=== PATIENT | female | born 1975 | race Caucasian/White ===

== ENCOUNTER → 2017-03-21 | Outpatient (CLI) | payer MEDICARE, OTHER ==
[~2017-03-21] MED LIST: ALPR.5; ALPR.5 PO; Amlodipine Bes2.5 MG PO; BIOTIN PO; CALACE667G; CALACE667G PO; CALCAVITD PO; CEPH500 PO; CODBUTACEC PO; CRANBERRY TAB PO; CREON DR 36,001 EACH PO; CREON DR 6,0001 EACH PO; Ceftriaxon2 GM/50 ML IV; DEXL60CA3; DEXL60CA3 PO; Dazidox10 MG PO; ECULIZUMAB; ENOX60I SC; ERGO50000 PO; ESCI20 PO; Esgic Tablet1 EACH PO; GABA300 PO; GLUC500 PO; HYDACE5 PO; HYDACE5325 PO; HYDCHL25 PO; HYDMOR2 PO; HYDMOR4 PO; Imitrex100 MG PO; KETO10 PO; Kristalose20 GM PO; LABE200 PO; LYSINE PO; Lisinopril2.5 MG PO; MEDR10 PO; METDOP250 PO; MULVITB&C PO; MULVITMIND PO; NAPR500 PO; Nephro-Vite RX1 EA PO; Norco 5-325 Ta1 EACH PO; OLME20 PO; OLME5TAB PO; ONDA4 PO; ONDA4ODT MM; ONDA8 PO; OXYACE5T PO; OXYC10TA19 PO; OXYC5; OXYC5 PO; PANT20 PO; PANT40 PO; PENVK500 PO; PREN-16 PO; PROC10 PO; PROC25S PR; PROC5 PR; PROM25 PO; PROM25S PO; Promethazine12.5 M1 PO; Protonix40 MG PO; RABE20 PO; RXHYDMOR2 PO; SODBIC650 PO; SUCR1 PO; SULTRIDS PO; SUMA25; SUMA25 PO; Soliris300 MG/30; Soliris300 MG/30 IV; TAMS.4ER PO; TRAM50 PO; Valium5 MG PO; WARF7.5 PO; Zofran Odt4 MG SL; Zofran Odt8 MG SL; [UNRECOGNIZED DRUG - OTHER] PO
[2017-03-21 19:10] LABS: Albumin, Blood 3.6 g/dL (3.4-5.0); Albumin/Globulin Ratio 1.1 (0.8-1.8); Bilirubin, Total 0.2 mg/dL (0.1-1.0); Bun/Creatinine Ratio 13.9 (12.0-20.0); Calcium, Blood 8.6 mg/dL (8.5-10.1); Creatinine, Blood 3.16 mg/dL (0.40-1.00); Globulin, Blood 3.3 g/dL (2.2-4.0); Potassium, Blood 5.9 mmol/L (3.5-5.5); Total Protein, Blood 6.9 g/dL (6.4-8.2)
== END ==
LOC: LAB SHORT 12:50
PROVIDERS: Internal Medicine Hematology & Oncology
DX: D59.3 Hemolytic-uremic syndrome (principal)
CPT/HCPCS: 80053; 86162

== ENCOUNTER → 2017-03-22 | Outpatient (CLI) | payer MEDICARE, OTHER ==
[2017-03-22 13:34] LABS: Alanine Aminotransfer (ALT/SGP 15 U/L (12-78); Albumin, Blood 3.6 g/dL (3.4-5.0); Albumin/Globulin Ratio 1.2 (0.8-1.8); Alk Phos 53 U/L (50-136); Anion Gap 8 mmol/L (6-16); Aspartate Aminotrans (AST/SGOT 13 U/L (12-37); Bilirubin, Direct <0.1 mg/dL (0.0-0.3); Bilirubin, Indirect Unable to Calculate mg/dL (0.1-0.7); Bilirubin, Total 0.2 mg/dL (0.1-1.0); Blood Urea Nitrogen 39 mg/dL (8-24); Bun/Creatinine Ratio 13.1 (12.0-20.0); CO2, Blood 22 mmol/L (21-32); Calcium, Blood 8.7 mg/dL (8.5-10.1); Chloride, Blood 112 mmol/L (98-108); Creatinine, Blood 2.97 mg/dL (0.40-1.00); Glomerular Filtration Rate 18 (60-); Glucose, Blood 122 mg/dL (70-99); Phosphorus, Blood 4.5 mg/dL (2.5-4.9); Potassium, Blood 5.2 mmol/L (3.5-5.5); Sodium, Blood 142 mmol/L (136-145); Total Protein, Blood 6.6 g/dL (6.4-8.2)
== END ==
LOC: LAB SHORT 12:25
PROVIDERS: Internal Medicine Hematology & Oncology
DX: D59.3 Hemolytic-uremic syndrome (principal)
CPT/HCPCS: 80053; 82248; 84100

== ENCOUNTER 2017-03-28 01:07 | Day surgery (SDC) | payer MEDICARE, OTHER ==
[~2017-03-28 01:07] MED LIST changes: -Amlodipine Bes2.5 MG PO; -CREON DR 36,001 EACH PO; -CREON DR 6,0001 EACH PO; -Kristalose20 GM PO; -RABE20 PO
[2017-03-28 12:15] LABS: BASOPHILS ABSOLUTE AUTO 0.07 K/mm3 (0.00-0.23); BASOPHILS PERCENT AUTO 1 % (0-2); EOSINOPHILS ABSOLUTE AUTO 0.29 K/mm3 (0.00-0.68); EOSINOPHILS PERCENT AUTO 3 % (0-6); Hematocrit 38.9 % (33.0-51.0); Hemoglobin 12.7 g/dL (11.5-16.0); IMMATURE GRAN ABSOLUTE AUTO 0.01 K/mm3 (0.00-0.10); IMMATURE GRAN PERCENT AUTO 0 % (0-1); LYMPHOCYTES ABSOLUTE AUTO 2.88 K/mm3 (0.84-5.20); LYMPHOCYTES PERCENT AUTO 31 % (21-46); MONOCYTES ABSOLUTE AUTO 0.41 K/mm3 (0.16-1.47); MONOCYTES PERCENT AUTO 5 % (4-13); Mean Corpuscular HGB 29.3 pg (26.0-34.0); Mean Corpuscular HGB Conc 32.6 g/dL (31.5-36.5); Mean Corpuscular Volume 90 fL (80-100); Mean Platelet Volume 10.5 fL (9.1-12.4); NEUTROPHILS ABSOLUTE AUTO 5.54 K/mm3 (1.96-9.15); NEUTROPHILS PERCENT AUTO 60 % (41-73); Platelet Count 318 K/mm3 (150-400); RDW Coefficient Variation 13.2 % (11.7-14.2); RDW Standard Deviation 43.8 fL (35.1-46.3); Red Blood Cell Count 4.33 M/mm3 (3.80-5.20)
[2017-03-28 12:36] LABS: Alanine Aminotransfer (ALT/SGP 18 U/L (12-78); Albumin, Blood 3.8 g/dL (3.4-5.0); Alk Phos 59 U/L (50-136); Anion Gap 7 mmol/L (6-16); Aspartate Aminotrans (AST/SGOT 17 U/L (12-37); Bilirubin, Direct <0.1 mg/dL (0.0-0.3); Bilirubin, Indirect Unable to Calculate mg/dL (0.1-0.7); Bilirubin, Total 0.2 mg/dL (0.1-1.0); Blood Urea Nitrogen 37 mg/dL (8-24); Bun/Creatinine Ratio 18.8 (12.0-20.0); CO2, Blood 23 mmol/L (21-32); Chloride, Blood 107 mmol/L (98-108); Creatinine, Blood 1.97 mg/dL (0.40-1.00); Globulin, Blood 3.9 g/dL (2.2-4.0); Glomerular Filtration Rate 30 (60-); Glucose, Blood 91 mg/dL (70-99); Phosphorus, Blood 3.7 mg/dL (2.5-4.9); Potassium, Blood 4.9 mmol/L (3.5-5.5); Sodium, Blood 137 mmol/L (136-145); Total Protein, Blood 7.7 g/dL (6.4-8.2)
[2017-03-28 14:08] LABS: Amylase, Blood 94 U/L (25-115)
[2018-01-06] MEDS ORDERED: RABE20 PO (19:10)
[2018-01-06] MEDS ORDERED: CREON DR 6,0001 EACH PO (19:10)
[2018-01-06] MEDS ORDERED: Amlodipine Bes2.5 MG PO (19:10)
[2018-01-06] MEDS ORDERED: CREON DR 36,001 EACH PO (19:10)
== END 2017-03-28 12:09 | disposition home or self-care (01) ==
LOC: ATC 01:07
PROVIDERS: Internal Medicine Hematology & Oncology; Internal Medicine Nephrology
DX: D59.3 Hemolytic-uremic syndrome (principal); R50.9 Fever, unspecified; N18.4 Chronic kidney disease, stage 4 (severe); D63.1 Anemia in chronic kidney disease; Z45.2 Encounter for adjustment and management of vascular access device; Z87.891 Personal history of nicotine dependence; Z99.2 Dependence on renal dialysis
CPT/HCPCS: 36415; 36593; 80053; 82150; 82248; 83690; 84100; 85025; 87040; J1642; J2997

== ENCOUNTER → 2017-04-01 | Outpatient (CLI) | payer MEDICARE, OTHER ==
[~2017-04-01] MED LIST changes: +Amlodipine Bes2.5 MG PO; +CREON DR 36,001 EACH PO; +CREON DR 6,0001 EACH PO; +Kristalose20 GM PO; +RABE20 PO
[2017-04-01 16:59] LABS: Albumin/Globulin Ratio 1.1 (0.8-1.8); Bilirubin, Total 0.3 mg/dL (0.1-1.0); Bun/Creatinine Ratio 15.9 (12.0-20.0); Calcium, Blood 9.1 mg/dL (8.5-10.1); Creatinine, Blood 1.89 mg/dL (0.40-1.00); Globulin, Blood 3.5 g/dL (2.2-4.0); Potassium, Blood 4.2 mmol/L (3.5-5.5); Total Protein, Blood 7.5 g/dL (6.4-8.2)
== END ==
LOC: LAB 15:55
PROVIDERS: Internal Medicine Nephrology
DX: N18.4 Chronic kidney disease, stage 4 (severe) (principal); D63.1 Anemia in chronic kidney disease
CPT/HCPCS: 80053; 82150; 83690; 84703

== ENCOUNTER → 2017-04-11 | Outpatient (CLI) | payer MEDICARE, OTHER ==
[2017-04-11 18:42] LABS: Albumin, Blood 3.5 g/dL (3.4-5.0); Albumin/Globulin Ratio 1.1 (0.8-1.8); Bilirubin, Total 0.3 mg/dL (0.1-1.0); Bun/Creatinine Ratio 16.8 (12.0-20.0); Calcium, Blood 8.9 mg/dL (8.5-10.1); Creatinine, Blood 1.85 mg/dL (0.40-1.00); Globulin, Blood 3.2 g/dL (2.2-4.0); Potassium, Blood 4.7 mmol/L (3.5-5.5); Total Protein, Blood 6.7 g/dL (6.4-8.2)
== END | disposition home or self-care (01) ==
LOC: LAB 12:40
PROVIDERS: Internal Medicine Hematology & Oncology
DX: D59.3 Hemolytic-uremic syndrome (principal)
CPT/HCPCS: 80053; 86162

== ENCOUNTER → 2017-04-22 | Outpatient (CLI) | payer MEDICARE ==
[2017-04-22 14:58] LABS: Albumin/Globulin Ratio 1.2 (0.8-1.8); Bilirubin, Total 0.4 mg/dL (0.1-1.0); Bun/Creatinine Ratio 17.5 (12.0-20.0); Calcium, Blood 9.7 mg/dL (8.5-10.1); Creatinine, Blood 1.66 mg/dL (0.40-1.00); Globulin, Blood 3.4 g/dL (2.2-4.0); Potassium, Blood 4.7 mmol/L (3.5-5.5); Total Protein, Blood 7.4 g/dL (6.4-8.2)
== END | disposition home or self-care (01) ==
LOC: LAB 10:00
PROVIDERS: Internal Medicine Hematology & Oncology
DX: D59.3 Hemolytic-uremic syndrome (principal)
CPT/HCPCS: 80053; 86162

== ENCOUNTER → 2017-05-02 | Outpatient (CLI) | payer MEDICARE, OTHER ==
[2017-05-02 17:18] LABS: Albumin, Blood 3.6 g/dL (3.4-5.0); Albumin/Globulin Ratio 1.2 (0.8-1.8); Bilirubin, Total 0.3 mg/dL (0.1-1.0); Bun/Creatinine Ratio 14.8 (12.0-20.0); Calcium, Blood 8.9 mg/dL (8.5-10.1); Creatinine, Blood 1.76 mg/dL (0.40-1.00); Globulin, Blood 3.1 g/dL (2.2-4.0); Potassium, Blood 4.3 mmol/L (3.5-5.5); Total Protein, Blood 6.7 g/dL (6.4-8.2)
== END | disposition home or self-care (01) ==
LOC: LAB 16:16
PROVIDERS: Internal Medicine Hematology & Oncology
DX: D59.3 Hemolytic-uremic syndrome (principal)
CPT/HCPCS: 80053; 86162

== ENCOUNTER → 2017-05-16 | Outpatient (CLI) | payer MEDICARE ==
[2017-05-16 17:06] LABS: Albumin, Blood 3.9 g/dL (3.4-5.0); Albumin/Globulin Ratio 1.1 (0.8-1.8); Bilirubin, Total 0.3 mg/dL (0.1-1.0); Bun/Creatinine Ratio 21.1 (12.0-20.0); Calcium, Blood 9.3 mg/dL (8.5-10.1); Creatinine, Blood 1.52 mg/dL (0.40-1.00); Globulin, Blood 3.5 g/dL (2.2-4.0); Potassium, Blood 5.1 mmol/L (3.5-5.5); Total Protein, Blood 7.4 g/dL (6.4-8.2)
== END ==
LOC: LAB SHORT 12:50
PROVIDERS: Internal Medicine Hematology & Oncology
DX: D59.3 Hemolytic-uremic syndrome (principal)
CPT/HCPCS: 80053

== ENCOUNTER → 2017-05-27 | Outpatient (CLI) | payer MEDICARE ==
[2017-05-27 17:30] LABS: Albumin, Blood 3.6 g/dL (3.4-5.0); Albumin/Globulin Ratio 1.1 (0.8-1.8); Bilirubin, Total 0.3 mg/dL (0.1-1.0); Bun/Creatinine Ratio 18.5 (12.0-20.0); Calcium, Blood 9.1 mg/dL (8.5-10.1); Creatinine, Blood 1.46 mg/dL (0.40-1.00); Globulin, Blood 3.4 g/dL (2.2-4.0); Potassium, Blood 4.6 mmol/L (3.5-5.5)
== END | disposition home or self-care (01) ==
LOC: LAB 12:25
PROVIDERS: Internal Medicine Hematology & Oncology
DX: D59.3 Hemolytic-uremic syndrome (principal); K86.1 Other chronic pancreatitis
CPT/HCPCS: 80053; 82150; 83690

== ENCOUNTER → 2017-06-07 | Outpatient (CLI) | payer MEDICARE ==
[2017-06-07 14:28] LABS: Albumin, Blood 3.5 g/dL (3.4-5.0); Bilirubin, Total 0.3 mg/dL (0.1-1.0); Bun/Creatinine Ratio 15.3 (12.0-20.0); Calcium, Blood 8.5 mg/dL (8.5-10.1); Creatinine, Blood 1.7 mg/dL (0.40-1.00); Globulin, Blood 3.5 g/dL (2.2-4.0); Potassium, Blood 4.8 mmol/L (3.5-5.5)
== END | disposition home or self-care (01) ==
LOC: LAB 11:00
PROVIDERS: Internal Medicine Hematology & Oncology
DX: D59.3 Hemolytic-uremic syndrome (principal)
CPT/HCPCS: 80053; 86162

== ENCOUNTER → 2017-06-18 | Outpatient (CLI) | payer MEDICARE, OTHER ==
[~2017-06-18] MED LIST changes: -Amlodipine Bes2.5 MG PO; -CREON DR 36,001 EACH PO; -CREON DR 6,0001 EACH PO; -Kristalose20 GM PO; -RABE20 PO
[2017-06-18 17:19] LABS: Albumin, Blood 3.8 g/dL (3.4-5.0); Albumin/Globulin Ratio 1.1 (0.8-1.8); Bilirubin, Total 0.5 mg/dL (0.1-1.0); Bun/Creatinine Ratio 20.1 (12.0-20.0); Calcium, Blood 9.4 mg/dL (8.5-10.1); Creatinine, Blood 1.59 mg/dL (0.40-1.00); Globulin, Blood 3.4 g/dL (2.2-4.0); Potassium, Blood 4.5 mmol/L (3.5-5.5); Total Protein, Blood 7.2 g/dL (6.4-8.2)
== END ==
LOC: LAB 12:40 → LAB SHORT 12:40
PROVIDERS: Internal Medicine Hematology & Oncology
DX: D59.3 Hemolytic-uremic syndrome (principal)
CPT/HCPCS: 80053; 86162

== ENCOUNTER → 2017-06-28 | Outpatient (CLI) | payer MEDICARE, OTHER ==
[2017-06-28 13:21] LABS: Albumin, Blood 3.2 g/dL (3.4-5.0); Albumin/Globulin Ratio 1.2 (0.8-1.8); Bilirubin, Total 0.2 mg/dL (0.1-1.0); Calcium, Blood 8.2 mg/dL (8.5-10.1); Creatinine, Blood 1.57 mg/dL (0.40-1.00); Globulin, Blood 2.7 g/dL (2.2-4.0); Potassium, Blood 4.2 mmol/L (3.5-5.5); Total Protein, Blood 5.9 g/dL (6.4-8.2)
== END ==
LOC: LAB 10:00 → LAB SHORT 10:00
PROVIDERS: Internal Medicine Hematology & Oncology
DX: D59.3 Hemolytic-uremic syndrome (principal)
CPT/HCPCS: 80053; 83615; 86162

== ENCOUNTER → 2017-07-09 | Outpatient (CLI) | payer MEDICARE, OTHER ==
[2017-07-09 17:26] LABS: Albumin, Blood 3.6 g/dL (3.4-5.0); Anion Gap 9 mmol/L (6-16); Blood Urea Nitrogen 26 mg/dL (8-24); CO2, Blood 23 mmol/L (21-32); Calcium, Blood 8.8 mg/dL (8.5-10.1); Chloride, Blood 108 mmol/L (98-108); Creatinine, Blood 1.53 mg/dL (0.40-1.00); Glomerular Filtration Rate 39 (60-); Glucose, Blood 123 mg/dL (70-99); Phosphorus, Blood 3.1 mg/dL (2.5-4.9); Potassium, Blood 4.6 mmol/L (3.5-5.5); Sodium, Blood 140 mmol/L (136-145)
[2017-07-09 17:29] LABS: Thyroid Stimulating Hormone 0.624 uIU/mL (0.360-4.800)
== END | disposition home or self-care (01) ==
LOC: LAB 13:00 → LAB SHORT 13:00
PROVIDERS: Internal Medicine Nephrology
DX: N18.3 Chronic kidney disease, stage 3 (moderate) (principal); D63.1 Anemia in chronic kidney disease; R80.9 Proteinuria, unspecified; R76.9 Abnormal immunological finding in serum, unspecified; R94.6 Abnormal results of thyroid function studies; R94.5 Abnormal results of liver function studies
CPT/HCPCS: 80069; 82530; 84443; 85018

== ENCOUNTER 2017-08-10 00:30 | Day surgery (SDC) | payer MEDICARE, OTHER | END 2017-08-10 13:29 | disposition home or self-care (01) | LOC: ATC 00:30 | DX: D59.3 Hemolytic-uremic syndrome (principal); Z87.891 Personal history of nicotine dependence; K21.9 Gastro-esophageal reflux disease without esophagitis; I10 Essential (primary) hypertension | CPT/HCPCS: 36593; 96523; J1642; J2997 ==

== ENCOUNTER → 2017-09-03 | Outpatient (CLI) | payer MEDICARE, OTHER ==
[2017-09-03 18:51] LABS: BASOPHILS ABSOLUTE AUTO 0.05 K/mm3 (0.00-0.23); BASOPHILS PERCENT AUTO 1 % (0-2); EOSINOPHILS ABSOLUTE AUTO 0.37 K/mm3 (0.00-0.68); EOSINOPHILS PERCENT AUTO 5 % (0-6); Hematocrit 37.1 % (33.0-51.0); Hemoglobin 11.9 g/dL (11.5-16.0); IMMATURE GRAN ABSOLUTE AUTO 0.01 K/mm3 (0.00-0.10); IMMATURE GRAN PERCENT AUTO 0 % (0-1); LYMPHOCYTES ABSOLUTE AUTO 1.94 K/mm3 (0.84-5.20); LYMPHOCYTES PERCENT AUTO 26 % (21-46); MONOCYTES ABSOLUTE AUTO 0.49 K/mm3 (0.16-1.47); MONOCYTES PERCENT AUTO 7 % (4-13); Mean Corpuscular HGB 27.8 pg (26.0-34.0); Mean Corpuscular HGB Conc 32.1 g/dL (31.5-36.5); Mean Corpuscular Volume 87 fL (80-100); Mean Platelet Volume 11.2 fL (9.1-12.4); NEUTROPHILS ABSOLUTE AUTO 4.64 K/mm3 (1.96-9.15); NEUTROPHILS PERCENT AUTO 62 % (41-73); Platelet Count 157 K/mm3 (150-400); RDW Coefficient Variation 13.5 % (11.7-14.2); RDW Standard Deviation 42.3 fL (35.1-46.3); Red Blood Cell Count 4.28 M/mm3 (3.80-5.20)
[2017-09-03 19:18] LABS: Alanine Aminotransfer (ALT/SGP 16 U/L (12-78); Alk Phos 48 U/L (50-136); Anion Gap 6 mmol/L (6-16); Aspartate Aminotrans (AST/SGOT 9 U/L (12-37); Bilirubin, Direct <0.1 mg/dL (0.0-0.3); Bilirubin, Indirect Unable to Calculate mg/dL (0.1-0.7); Bilirubin, Total 0.3 mg/dL (0.1-1.0); Blood Urea Nitrogen 34 mg/dL (8-24); Bun/Creatinine Ratio 13.8 (12.0-20.0); CO2, Blood 25 mmol/L (21-32); Calcium, Blood 7.9 mg/dL (8.5-10.1); Chloride, Blood 111 mmol/L (98-108); Creatinine, Blood 2.47 mg/dL (0.40-1.00); Glomerular Filtration Rate 23 (60-); Glucose, Blood 141 mg/dL (70-99); Phosphorus, Blood 3.9 mg/dL (2.5-4.9); Potassium, Blood 4.6 mmol/L (3.5-5.5); Sodium, Blood 142 mmol/L (136-145)
== END ==
LOC: LAB SHORT 18:15
PROVIDERS: Internal Medicine Nephrology
DX: N18.4 Chronic kidney disease, stage 4 (severe) (principal); D63.1 Anemia in chronic kidney disease; N25.81 Secondary hyperparathyroidism of renal origin; E55.9 Vitamin D deficiency, unspecified; E78.00 Pure hypercholesterolemia, unspecified; R76.9 Abnormal immunological finding in serum, unspecified; R94.5 Abnormal results of liver function studies; R94.6 Abnormal results of thyroid function studies; G60.9 Hereditary and idiopathic neuropathy, unspecified
CPT/HCPCS: 80053; 82248; 84100; 85025

== ENCOUNTER → 2017-09-04 | Outpatient (CLI) | payer MEDICARE, OTHER ==
[2017-09-04 10:04] LABS: Albumin, Blood 3.4 g/dL (3.4-5.0); Bilirubin, Total 0.4 mg/dL (0.1-1.0); Bun/Creatinine Ratio 13.5 (12.0-20.0); Calcium, Blood 8.6 mg/dL (8.5-10.1); Creatinine, Blood 2.29 mg/dL (0.40-1.00); Globulin, Blood 3.3 g/dL (2.2-4.0); Potassium, Blood 4.9 mmol/L (3.5-5.5); Total Protein, Blood 6.7 g/dL (6.4-8.2)
== END | disposition home or self-care (01) ==
LOC: LAB SHORT 09:28 → LAB 09:28
PROVIDERS: Internal Medicine Hematology & Oncology
DX: R11.2 Nausea with vomiting, unspecified (principal)
CPT/HCPCS: 80053

== ENCOUNTER → 2017-09-05 | Outpatient (CLI) | payer MEDICARE, OTHER ==
[2017-09-05 17:57] LABS: Albumin, Blood 3.7 g/dL (3.4-5.0); Anion Gap 8 mmol/L (6-16); Blood Urea Nitrogen 29 mg/dL (8-24); Bun/Creatinine Ratio 14.1 (12.0-20.0); CO2, Blood 23 mmol/L (21-32); Chloride, Blood 109 mmol/L (98-108); Creatinine, Blood 2.06 mg/dL (0.40-1.00); Glomerular Filtration Rate 28 (60-); Glucose, Blood 95 mg/dL (70-99); Phosphorus, Blood 4.6 mg/dL (2.5-4.9); Potassium, Blood 5.4 mmol/L (3.5-5.5); Sodium, Blood 140 mmol/L (136-145)
[2017-09-06 14:16] LABS: Albumin, Blood 3.9 g/dL (3.4-5.0); Albumin/Globulin Ratio 1.3 (0.8-1.8); Bilirubin, Total 0.6 mg/dL (0.1-1.0); Bun/Creatinine Ratio 14.9 (12.0-20.0); Calcium, Blood 8.9 mg/dL (8.5-10.1); Creatinine, Blood 2.15 mg/dL (0.40-1.00); Potassium, Blood 5.4 mmol/L (3.5-5.5); Total Protein, Blood 6.9 g/dL (6.4-8.2)
== END ==
LOC: LAB 16:39 → LAB SHORT 16:39
PROVIDERS: Internal Medicine Hematology & Oncology; Internal Medicine Nephrology
DX: N18.3 Chronic kidney disease, stage 3 (moderate) (principal); D63.1 Anemia in chronic kidney disease; D59.3 Hemolytic-uremic syndrome
CPT/HCPCS: 80053; 80069; 85018

== ENCOUNTER → 2017-09-06 | Outpatient (CLI) | payer MEDICARE, OTHER ==
[2017-09-06 14:05] LABS: Appearance, Urine Clear (Clear); Bilirubin, Urine Neg (Neg); Blood, Urine 1+ (Neg); Color, Urine Yellow (P-Yellow); Glucose Qualitative, Urine Neg (Neg); Ketones, Urine Neg (Neg); Leukocyte Esterase, Urine 1+ (Neg); Nitrite, Urine Neg (Neg); Protein, Urine 3+ (Neg); Urobilinogen, Urine NORM (Normal)
[2017-09-06 14:18] LABS: Bacteria Few /hpf; Squamous Epithelial Cells Mod /hpf (Few)
== END ==
LOC: LAB SHORT 13:42 → LAB 13:42
PROVIDERS: Internal Medicine Hematology & Oncology
DX: R50.9 Fever, unspecified (principal)
CPT/HCPCS: 81001; 87086

== ENCOUNTER → 2017-09-10 | Outpatient (CLI) | payer MEDICARE, OTHER ==
[2017-09-10 16:59] LABS: Albumin, Blood 3.8 g/dL (3.4-5.0); Albumin/Globulin Ratio 1.2 (0.8-1.8); Bilirubin, Total 0.6 mg/dL (0.1-1.0); Calcium, Blood 9.1 mg/dL (8.5-10.1); Creatinine, Blood 1.67 mg/dL (0.40-1.00); Globulin, Blood 3.1 g/dL (2.2-4.0); Potassium, Blood 4.7 mmol/L (3.5-5.5); Total Protein, Blood 6.9 g/dL (6.4-8.2)
== END ==
LOC: LAB SHORT 16:33 → LAB 16:33
PROVIDERS: Internal Medicine Hematology & Oncology
DX: D59.3 Hemolytic-uremic syndrome (principal)
CPT/HCPCS: 80053

== ENCOUNTER → 2017-09-23 | Outpatient (CLI) | payer MEDICARE, OTHER ==
[2017-09-23 12:09] LABS: Alanine Aminotransfer (ALT/SGP 14 U/L (12-78); Albumin, Blood 3.2 g/dL (3.4-5.0); Alk Phos 54 U/L (50-136); Anion Gap 5 mmol/L (6-16); Aspartate Aminotrans (AST/SGOT 13 U/L (12-37); Bilirubin, Direct <0.1 mg/dL (0.0-0.3); Bilirubin, Indirect Unable to Calculate mg/dL (0.1-0.7); Bilirubin, Total 0.3 mg/dL (0.1-1.0); Blood Urea Nitrogen 19 mg/dL (8-24); CO2, Blood 30 mmol/L (21-32); Calcium, Blood 8.6 mg/dL (8.5-10.1); Chloride, Blood 106 mmol/L (98-108); Creatinine, Blood 1.73 mg/dL (0.40-1.00); Globulin, Blood 3.1 g/dL (2.2-4.0); Glomerular Filtration Rate 34 (60-); Glucose, Blood 83 mg/dL (70-99); Phosphorus, Blood 3.2 mg/dL (2.5-4.9); Potassium, Blood 4.7 mmol/L (3.5-5.5); Sodium, Blood 141 mmol/L (136-145); Total Protein, Blood 6.3 g/dL (6.4-8.2)
== END | disposition home or self-care (01) ==
LOC: LAB 11:14 → LAB SHORT 11:14
PROVIDERS: Internal Medicine Nephrology
DX: N18.3 Chronic kidney disease, stage 3 (moderate) (principal); D63.1 Anemia in chronic kidney disease; N25.81 Secondary hyperparathyroidism of renal origin; E78.00 Pure hypercholesterolemia, unspecified; E55.9 Vitamin D deficiency, unspecified; R73.09 Other abnormal glucose
CPT/HCPCS: 80053; 82248; 83036; 84100; 85018

== ENCOUNTER → 2017-10-02 | Outpatient (CLI) | payer MEDICARE, OTHER ==
[2017-10-02 16:38] LABS: BASOPHILS ABSOLUTE AUTO 0.07 K/mm3 (0.00-0.23); BASOPHILS PERCENT AUTO 1 % (0-2); EOSINOPHILS ABSOLUTE AUTO 0.46 K/mm3 (0.00-0.68); EOSINOPHILS PERCENT AUTO 5 % (0-6); Hematocrit 40.9 % (33.0-51.0); Hemoglobin 13.2 g/dL (11.5-16.0); IMMATURE GRAN ABSOLUTE AUTO 0.02 K/mm3 (0.00-0.10); IMMATURE GRAN PERCENT AUTO 0 % (0-1); LYMPHOCYTES ABSOLUTE AUTO 2.35 K/mm3 (0.84-5.20); LYMPHOCYTES PERCENT AUTO 27 % (21-46); MONOCYTES ABSOLUTE AUTO 0.56 K/mm3 (0.16-1.47); MONOCYTES PERCENT AUTO 7 % (4-13); Mean Corpuscular HGB 28.1 pg (26.0-34.0); Mean Corpuscular HGB Conc 32.3 g/dL (31.5-36.5); Mean Corpuscular Volume 87 fL (80-100); Mean Platelet Volume 11.8 fL (9.1-12.4); NEUTROPHILS PERCENT AUTO 60 % (41-73); Platelet Count 246 K/mm3 (150-400); RDW Coefficient Variation 13.4 % (11.7-14.2); RDW Standard Deviation 42.7 fL (35.1-46.3); Red Blood Cell Count 4.69 M/mm3 (3.80-5.20); White Blood Cell Count 8.66 K/mm3 (4.00-11.30)
[2017-10-02 17:31] LABS: Albumin, Blood 3.7 g/dL (3.4-5.0); Anion Gap 8 mmol/L (6-16); Blood Urea Nitrogen 24 mg/dL (8-24); Bun/Creatinine Ratio 14.2 (12.0-20.0); CO2, Blood 26 mmol/L (21-32); Calcium, Blood 8.9 mg/dL (8.5-10.1); Chloride, Blood 105 mmol/L (98-108); Creatinine, Blood 1.69 mg/dL (0.40-1.00); Glomerular Filtration Rate 35 (60-); Glucose, Blood 89 mg/dL (70-99); Phosphorus, Blood 3.4 mg/dL (2.5-4.9); Potassium, Blood 4.7 mmol/L (3.5-5.5); Sodium, Blood 139 mmol/L (136-145)
== END | disposition home or self-care (01) ==
LOC: LAB SHORT 11:25 → LAB 11:25
PROVIDERS: Internal Medicine Nephrology
DX: N18.3 Chronic kidney disease, stage 3 (moderate) (principal); D63.1 Anemia in chronic kidney disease
CPT/HCPCS: 80069; 85025

== ENCOUNTER → 2017-10-03 | Outpatient (CLI) | payer MEDICARE, OTHER | END | disposition home or self-care (01) | LOC: LAB SHORT 16:39 → LAB 16:39 | DX: D59.3 Hemolytic-uremic syndrome (principal) | CPT/HCPCS: 86162 ==

== ENCOUNTER → 2017-10-11 | Outpatient (CLI) | payer MEDICARE, OTHER ==
[~2017-10-11] MED LIST changes: +Kristalose20 GM PO
[2017-10-11 17:18] LABS: Albumin, Blood 3.4 g/dL (3.4-5.0); Albumin/Globulin Ratio 1.1 (0.8-1.8); Bilirubin, Total 0.3 mg/dL (0.1-1.0); Bun/Creatinine Ratio 10.4 (12.0-20.0); Calcium, Blood 8.2 mg/dL (8.5-10.1); Creatinine, Blood 1.93 mg/dL (0.40-1.00); Globulin, Blood 3.1 g/dL (2.2-4.0); Potassium, Blood 4.5 mmol/L (3.5-5.5); Total Protein, Blood 6.5 g/dL (6.4-8.2)
== END ==
LOC: LAB SHORT 12:10 → LAB 12:10
PROVIDERS: Internal Medicine Hematology & Oncology
DX: D59.3 Hemolytic-uremic syndrome (principal)
CPT/HCPCS: 80053; 86162

== ENCOUNTER → 2017-10-22 | Outpatient (CLI) | payer MEDICARE, OTHER ==
[~2017-10-22] MED LIST changes: -Kristalose20 GM PO
[2017-10-22 17:30] LABS: Albumin, Blood 3.4 g/dL (3.4-5.0); Bilirubin, Total 0.2 mg/dL (0.1-1.0); Bun/Creatinine Ratio 11.4 (12.0-20.0); Calcium, Blood 8.5 mg/dL (8.5-10.1); Creatinine, Blood 2.01 mg/dL (0.40-1.00); Globulin, Blood 3.4 g/dL (2.2-4.0); Potassium, Blood 4.6 mmol/L (3.5-5.5); Total Protein, Blood 6.8 g/dL (6.4-8.2)
== END | disposition home or self-care (01) ==
LOC: LAB 16:32 → LAB SHORT 16:32
PROVIDERS: Internal Medicine Hematology & Oncology
DX: B38.9 Coccidioidomycosis, unspecified (principal)
CPT/HCPCS: 80053

== ENCOUNTER → 2017-10-25 | Outpatient (CLI) | payer MEDICARE, OTHER ==
[~2017-10-25] MED LIST changes: +Kristalose20 GM PO
[2017-10-25 16:13] LABS: BASOPHILS ABSOLUTE AUTO 0.07 K/mm3 (0.00-0.23); BASOPHILS PERCENT AUTO 1 % (0-2); EOSINOPHILS ABSOLUTE AUTO 0.53 K/mm3 (0.00-0.68); EOSINOPHILS PERCENT AUTO 7 % (0-6); Hematocrit 37.7 % (33.0-51.0); Hemoglobin 11.9 g/dL (11.5-16.0); IMMATURE GRAN ABSOLUTE AUTO 0.01 K/mm3 (0.00-0.10); IMMATURE GRAN PERCENT AUTO 0 % (0-1); LYMPHOCYTES PERCENT AUTO 26 % (21-46); MONOCYTES ABSOLUTE AUTO 0.46 K/mm3 (0.16-1.47); MONOCYTES PERCENT AUTO 6 % (4-13); Mean Corpuscular HGB 27.3 pg (26.0-34.0); Mean Corpuscular HGB Conc 31.6 g/dL (31.5-36.5); Mean Corpuscular Volume 87 fL (80-100); Mean Platelet Volume 11.2 fL (9.1-12.4); NEUTROPHILS ABSOLUTE AUTO 4.26 K/mm3 (1.96-9.15); NEUTROPHILS PERCENT AUTO 59 % (41-73); Platelet Count 201 K/mm3 (150-400); RDW Coefficient Variation 13.3 % (11.7-14.2); RDW Standard Deviation 41.5 fL (35.1-46.3); Red Blood Cell Count 4.36 M/mm3 (3.80-5.20); White Blood Cell Count 7.23 K/mm3 (4.00-11.30)
[2017-10-25 16:37] LABS: Albumin, Blood 3.4 g/dL (3.4-5.0); Anion Gap 7 mmol/L (6-16); Blood Urea Nitrogen 21 mg/dL (8-24); Bun/Creatinine Ratio 12.3 (12.0-20.0); CO2, Blood 28 mmol/L (21-32); Calcium, Blood 9.1 mg/dL (8.5-10.1); Chloride, Blood 104 mmol/L (98-108); Creatinine, Blood 1.71 mg/dL (0.40-1.00); Glomerular Filtration Rate 35 (60-); Glucose, Blood 90 mg/dL (70-99); Phosphorus, Blood 3.4 mg/dL (2.5-4.9); Potassium, Blood 4.5 mmol/L (3.5-5.5); Sodium, Blood 139 mmol/L (136-145)
[2017-10-25 16:47] LABS: Amylase, Blood 115 U/L (25-115)
== END | disposition home or self-care (01) ==
LOC: LAB SHORT 11:00 → LAB 11:00
PROVIDERS: Internal Medicine Hematology & Oncology; Internal Medicine Nephrology
DX: D59.3 Hemolytic-uremic syndrome (principal); N18.3 Chronic kidney disease, stage 3 (moderate); D63.1 Anemia in chronic kidney disease; R10.9 Unspecified abdominal pain
CPT/HCPCS: 80069; 82150; 83690; 85025

== ENCOUNTER 2017-10-28 12:07 | Emergency (ER) | payer MEDICARE, OTHER ==
[~2017-10-28] VITALS: Ht 182.9 cm; Wt 92.1 kg
[~2017-10-28 12:07] MED LIST changes: -Kristalose20 GM PO
[2017-10-28 13:35] LABS: Albumin, Blood 3.6 g/dL (3.4-5.0); Albumin/Globulin Ratio 0.9 (0.8-1.8); Bilirubin, Total 0.5 mg/dL (0.1-1.0); Bun/Creatinine Ratio 16.6 (12.0-20.0); Calcium, Blood 9.2 mg/dL (8.5-10.1); Creatinine, Blood 1.57 mg/dL (0.40-1.00); Globulin, Blood 4.2 g/dL (2.2-4.0); Potassium, Blood 4.3 mmol/L (3.5-5.5); Total Protein, Blood 7.8 g/dL (6.4-8.2)
[2017-10-28 13:36] LABS: BASOPHILS ABSOLUTE AUTO 0.05 K/mm3 (0.00-0.23); BASOPHILS PERCENT AUTO 1 % (0-2); EOSINOPHILS ABSOLUTE AUTO 0.21 K/mm3 (0.00-0.68); EOSINOPHILS PERCENT AUTO 3 % (0-6); Hematocrit 39.8 % (33.0-51.0); Hemoglobin 12.9 g/dL (11.5-16.0); IMMATURE GRAN ABSOLUTE AUTO 0.02 K/mm3 (0.00-0.10); IMMATURE GRAN PERCENT AUTO 0 % (0-1); LYMPHOCYTES ABSOLUTE AUTO 1.71 K/mm3 (0.84-5.20); LYMPHOCYTES PERCENT AUTO 23 % (21-46); MONOCYTES ABSOLUTE AUTO 0.43 K/mm3 (0.16-1.47); MONOCYTES PERCENT AUTO 6 % (4-13); Mean Corpuscular HGB 27.7 pg (26.0-34.0); Mean Corpuscular HGB Conc 32.4 g/dL (31.5-36.5); Mean Corpuscular Volume 85 fL (80-100); Mean Platelet Volume 10.9 fL (9.1-12.4); NEUTROPHILS ABSOLUTE AUTO 5.08 K/mm3 (1.96-9.15); NEUTROPHILS PERCENT AUTO 68 % (41-73); Platelet Count 220 K/mm3 (150-400); RDW Coefficient Variation 13.2 % (11.7-14.2); RDW Standard Deviation 40.8 fL (35.1-46.3); Red Blood Cell Count 4.66 M/mm3 (3.80-5.20)
[2017-10-28 14:18] LABS: Source, Urine Clean Catch
[2017-10-28 14:31] LABS: Appearance, Urine Clear (Clear); Bilirubin, Urine Neg (Neg); Blood, Urine Neg (Neg); Color, Urine Yellow (P-Yellow); Glucose Qualitative, Urine Neg (Neg); Ketones, Urine Neg (Neg); Leukocyte Esterase, Urine 1+ (Neg); Nitrite, Urine Neg (Neg); Protein, Urine 3+ (Neg); Urobilinogen, Urine NORM (Normal); pH, Urine 6.5 (5.0-8.0)
[2017-10-28 15:03] LABS: Red Blood Cells, Urine Not Seen /hpf (0-2); Squamous Epithelial Cells Few /hpf (Few)
[2017-10-28 15:04] LABS: Bacteria Few /hpf
[2017-10-28] MEDS ORDERED: Kristalose20 GM PO (16:29)
== END 2017-10-28 16:40 | disposition home or self-care (01) ==
LOC: ER 12:07
PROVIDERS: Emergency Medicine
DX: R10.12 Left upper quadrant pain (principal); R10.13 Epigastric pain; R11.2 Nausea with vomiting, unspecified; Z87.442 Personal history of urinary calculi; Z88.6 Allergy status to analgesic agent; Z88.8 Allergy status to other drugs, medicaments and biological substances; Z88.5 Allergy status to narcotic agent; Z79.899 Other long term (current) drug therapy
CPT/HCPCS: 74019; 80053; 81001; 81025; 83690; 85025; 87086; 96361; 96374; 96375; 99284-25; J0780; J1642; J7120

== ENCOUNTER → 2017-11-05 | Outpatient (CLI) | payer MEDICARE, OTHER ==
[~2017-11-05] MED LIST changes: +Kristalose20 GM PO
[2017-11-05 17:45] LABS: Albumin, Blood 3.4 g/dL (3.4-5.0); Albumin/Globulin Ratio 0.9 (0.8-1.8); Bilirubin, Total 0.2 mg/dL (0.1-1.0); Bun/Creatinine Ratio 11.2 (12.0-20.0); Calcium, Blood 8.7 mg/dL (8.5-10.1); Creatinine, Blood 1.52 mg/dL (0.40-1.00); Globulin, Blood 3.7 g/dL (2.2-4.0); Potassium, Blood 4.2 mmol/L (3.5-5.5); Total Protein, Blood 7.1 g/dL (6.4-8.2)
== END ==
LOC: LAB SHORT 17:07 → LAB 17:07
PROVIDERS: Internal Medicine Hematology & Oncology
DX: D59.3 Hemolytic-uremic syndrome (principal)
CPT/HCPCS: 80053; 86162

== ENCOUNTER → 2017-11-15 | Outpatient (CLI) | payer MEDICARE, OTHER ==
[2017-11-15 12:13] LABS: BASOPHILS ABSOLUTE AUTO 0.08 K/mm3 (0.00-0.23); BASOPHILS PERCENT AUTO 1 % (0-2); EOSINOPHILS ABSOLUTE AUTO 0.45 K/mm3 (0.00-0.68); EOSINOPHILS PERCENT AUTO 6 % (0-6); Hematocrit 34.5 % (33.0-51.0); Hemoglobin 10.8 g/dL (11.5-16.0); IMMATURE GRAN ABSOLUTE AUTO 0.01 K/mm3 (0.00-0.10); IMMATURE GRAN PERCENT AUTO 0 % (0-1); LYMPHOCYTES ABSOLUTE AUTO 2.34 K/mm3 (0.84-5.20); LYMPHOCYTES PERCENT AUTO 32 % (21-46); MONOCYTES ABSOLUTE AUTO 0.63 K/mm3 (0.16-1.47); MONOCYTES PERCENT AUTO 9 % (4-13); Mean Corpuscular HGB 27.2 pg (26.0-34.0); Mean Corpuscular HGB Conc 31.3 g/dL (31.5-36.5); Mean Corpuscular Volume 87 fL (80-100); Mean Platelet Volume 10.8 fL (9.1-12.4); NEUTROPHILS ABSOLUTE AUTO 3.92 K/mm3 (1.96-9.15); NEUTROPHILS PERCENT AUTO 53 % (41-73); Platelet Count 197 K/mm3 (150-400); RDW Coefficient Variation 13.2 % (11.7-14.2); RDW Standard Deviation 41.4 fL (35.1-46.3); Red Blood Cell Count 3.97 M/mm3 (3.80-5.20); White Blood Cell Count 7.43 K/mm3 (4.00-11.30)
[2017-11-15 12:30] LABS: Alanine Aminotransfer (ALT/SGP 14 U/L (12-78); Albumin, Blood 3.2 g/dL (3.4-5.0); Alk Phos 48 U/L (50-136); Amylase, Blood 50 U/L (25-115); Anion Gap 6 mmol/L (6-16); Aspartate Aminotrans (AST/SGOT 11 U/L (12-37); Bilirubin, Direct <0.1 mg/dL (0.0-0.3); Bilirubin, Indirect Unable to Calculate mg/dL (0.1-0.7); Bilirubin, Total 0.3 mg/dL (0.1-1.0); Blood Urea Nitrogen 19 mg/dL (8-24); Bun/Creatinine Ratio 9.5 (12.0-20.0); CO2, Blood 27 mmol/L (21-32); Calcium, Blood 8.3 mg/dL (8.5-10.1); Chloride, Blood 109 mmol/L (98-108); Creatinine, Blood 1.99 mg/dL (0.40-1.00); Globulin, Blood 3.1 g/dL (2.2-4.0); Glomerular Filtration Rate 29 (60-); Glucose, Blood 80 mg/dL (70-99); Phosphorus, Blood 3.6 mg/dL (2.5-4.9); Potassium, Blood 4.4 mmol/L (3.5-5.5); Sodium, Blood 142 mmol/L (136-145); Total Protein, Blood 6.3 g/dL (6.4-8.2)
== END | disposition home or self-care (01) ==
LOC: LAB SHORT 10:30 → LAB 10:30
PROVIDERS: Internal Medicine Nephrology
DX: N18.3 Chronic kidney disease, stage 3 (moderate) (principal); D63.1 Anemia in chronic kidney disease; N25.81 Secondary hyperparathyroidism of renal origin; E55.9 Vitamin D deficiency, unspecified; E78.00 Pure hypercholesterolemia, unspecified; R94.6 Abnormal results of thyroid function studies; R94.5 Abnormal results of liver function studies; R76.9 Abnormal immunological finding in serum, unspecified
CPT/HCPCS: 80053; 82150; 82248; 83690; 84100; 85025; 85651

== ENCOUNTER → 2017-11-25 | Outpatient (CLI) | payer MEDICARE, OTHER ==
[2017-11-25 13:25] LABS: Albumin, Blood 3.6 g/dL (3.4-5.0); Bilirubin, Total 0.4 mg/dL (0.1-1.0); Bun/Creatinine Ratio 18.4 (12.0-20.0); Calcium, Blood 8.9 mg/dL (8.5-10.1); Creatinine, Blood 1.74 mg/dL (0.40-1.00); Globulin, Blood 3.7 g/dL (2.2-4.0); Potassium, Blood 4.7 mmol/L (3.5-5.5); Total Protein, Blood 7.3 g/dL (6.4-8.2)
== END | disposition home or self-care (01) ==
LOC: LAB SHORT 11:40 → LAB 11:40
PROVIDERS: Internal Medicine Hematology & Oncology
DX: D59.3 Hemolytic-uremic syndrome (principal)
CPT/HCPCS: 80053; 86162

== ENCOUNTER → 2017-12-04 | Outpatient (CLI) | payer MEDICARE, OTHER ==
[2017-12-04 17:30] LABS: Albumin, Blood 3.6 g/dL (3.4-5.0); Bilirubin, Total 0.4 mg/dL (0.1-1.0); Bun/Creatinine Ratio 19.1 (12.0-20.0); Calcium, Blood 8.4 mg/dL (8.5-10.1); Creatinine, Blood 1.41 mg/dL (0.40-1.00); Globulin, Blood 3.6 g/dL (2.2-4.0); Potassium, Blood 4.4 mmol/L (3.5-5.5); Total Protein, Blood 7.2 g/dL (6.4-8.2)
== END | disposition home or self-care (01) ==
LOC: LAB SHORT 13:15 → LAB 13:15
PROVIDERS: Internal Medicine Hematology & Oncology
DX: D59.3 Hemolytic-uremic syndrome (principal)
CPT/HCPCS: 80053; 86162

== ENCOUNTER → 2017-12-16 | Outpatient (CLI) | payer MEDICARE, OTHER ==
[2017-12-16 17:13] LABS: Albumin, Blood 3.6 g/dL (3.4-5.0); Albumin/Globulin Ratio 1.1 (0.8-1.8); Bilirubin, Total 0.4 mg/dL (0.1-1.0); Bun/Creatinine Ratio 14.5 (12.0-20.0); Calcium, Blood 8.6 mg/dL (8.5-10.1); Creatinine, Blood 1.66 mg/dL (0.40-1.00); Globulin, Blood 3.2 g/dL (2.2-4.0); Potassium, Blood 4.4 mmol/L (3.5-5.5); Total Protein, Blood 6.8 g/dL (6.4-8.2)
== END | disposition home or self-care (01) ==
LOC: LAB SHORT 14:00 → LAB 14:00
PROVIDERS: Internal Medicine Hematology & Oncology
DX: D59.3 Hemolytic-uremic syndrome (principal)
CPT/HCPCS: 80053; 86162

== ENCOUNTER → 2018-03-03 | Outpatient (CLI) | payer MEDICARE, OTHER ==
[~2018-03-03] MED LIST changes: +Amlodipine Bes2.5 MG PO; +CREON DR 36,001 EACH PO; +CREON DR 6,0001 EACH PO; +RABE20 PO
[2018-03-03 16:56] LABS: Albumin, Blood 3.5 g/dL (3.4-5.0); Bilirubin, Total 0.2 mg/dL (0.1-1.0); Calcium, Blood 9.1 mg/dL (8.5-10.1); Creatinine, Blood 1.8 mg/dL (0.40-1.00); Globulin, Blood 3.4 g/dL (2.2-4.0); Potassium, Blood 4.7 mmol/L (3.5-5.5); Total Protein, Blood 6.9 g/dL (6.4-8.2)
== END | disposition home or self-care (01) ==
LOC: LAB 13:50 → LAB SHORT 13:50
PROVIDERS: Internal Medicine Hematology & Oncology
DX: D59.3 Hemolytic-uremic syndrome (principal)
CPT/HCPCS: 80053; 86162

== ENCOUNTER → 2018-03-13 | Outpatient (CLI) | payer MEDICARE, OTHER ==
[2018-03-13 17:09] LABS: Albumin, Blood 3.4 g/dL (3.4-5.0); Bilirubin, Total 0.2 mg/dL (0.1-1.0); Bun/Creatinine Ratio 11.6 (12.0-20.0); Calcium, Blood 8.3 mg/dL (8.5-10.1); Creatinine, Blood 1.73 mg/dL (0.40-1.00); Globulin, Blood 3.3 g/dL (2.2-4.0); Potassium, Blood 4.3 mmol/L (3.5-5.5); Total Protein, Blood 6.7 g/dL (6.4-8.2)
== END | disposition home or self-care (01) ==
LOC: LAB 13:30 → LAB SHORT 13:30
PROVIDERS: Internal Medicine Hematology & Oncology
DX: D59.3 Hemolytic-uremic syndrome (principal)
CPT/HCPCS: 80053; 83615

== ENCOUNTER → 2018-03-20 | Outpatient (CLI) | payer MEDICARE, OTHER ==
[2018-03-20 16:59] LABS: BASOPHILS ABSOLUTE AUTO 0.08 K/mm3 (0.00-0.23); BASOPHILS PERCENT AUTO 1 % (0-2); EOSINOPHILS ABSOLUTE AUTO 0.37 K/mm3 (0.00-0.68); EOSINOPHILS PERCENT AUTO 4 % (0-6); Hematocrit 42.4 % (33.0-51.0); Hemoglobin 13.1 g/dL (11.5-16.0); IMMATURE GRAN ABSOLUTE AUTO 0.03 K/mm3 (0.00-0.10); IMMATURE GRAN PERCENT AUTO 0 % (0-1); LYMPHOCYTES ABSOLUTE AUTO 2.52 K/mm3 (0.84-5.20); LYMPHOCYTES PERCENT AUTO 26 % (21-46); MONOCYTES ABSOLUTE AUTO 0.56 K/mm3 (0.16-1.47); MONOCYTES PERCENT AUTO 6 % (4-13); Mean Corpuscular HGB 27.9 pg (26.0-34.0); Mean Corpuscular HGB Conc 30.9 g/dL (31.5-36.5); Mean Corpuscular Volume 90 fL (80-100); Mean Platelet Volume 10.6 fL (9.1-12.4); NEUTROPHILS PERCENT AUTO 64 % (41-73); Platelet Count 343 K/mm3 (150-400); RDW Coefficient Variation 13.9 % (11.7-14.2); RDW Standard Deviation 46.6 fL (35.1-46.3); White Blood Cell Count 9.76 K/mm3 (4.00-11.30)
[2018-03-20 17:14] LABS: Alanine Aminotransfer (ALT/SGP 15 U/L (12-78); Albumin/Globulin Ratio 1.1 (0.8-1.8); Alk Phos 59 U/L (50-136); Anion Gap 9 mmol/L (6-16); Aspartate Aminotrans (AST/SGOT 11 U/L (12-37); Bilirubin, Direct <0.1 mg/dL (0.0-0.3); Bilirubin, Indirect Unable to Calculate mg/dL (0.1-0.7); Bilirubin, Total 0.2 mg/dL (0.1-1.0); Blood Urea Nitrogen 31 mg/dL (8-24); Bun/Creatinine Ratio 18.9 (12.0-20.0); CO2, Blood 22 mmol/L (21-32); Calcium, Blood 9.2 mg/dL (8.5-10.1); Chloride, Blood 109 mmol/L (98-108); Creatinine, Blood 1.64 mg/dL (0.40-1.00); Globulin, Blood 3.7 g/dL (2.2-4.0); Glomerular Filtration Rate 36 (60-); Glucose, Blood 110 mg/dL (70-99); Phosphorus, Blood 3.1 mg/dL (2.5-4.9); Potassium, Blood 4.7 mmol/L (3.5-5.5); Sodium, Blood 140 mmol/L (136-145); Total Protein, Blood 7.7 g/dL (6.4-8.2)
== END | disposition home or self-care (01) ==
LOC: LAB 16:41 → LAB SHORT 16:41
PROVIDERS: Internal Medicine Nephrology
DX: N18.3 Chronic kidney disease, stage 3 (moderate) (principal); D63.1 Anemia in chronic kidney disease; N25.81 Secondary hyperparathyroidism of renal origin; E55.9 Vitamin D deficiency, unspecified; E78.00 Pure hypercholesterolemia, unspecified; R76.9 Abnormal immunological finding in serum, unspecified; R94.5 Abnormal results of liver function studies; R94.6 Abnormal results of thyroid function studies
CPT/HCPCS: 80053; 82248; 84100; 85025

== ENCOUNTER → 2018-03-24 | Outpatient (CLI) | payer MEDICARE, OTHER ==
[2018-03-24 17:39] LABS: Albumin, Blood 3.4 g/dL (3.4-5.0); Bilirubin, Total 0.2 mg/dL (0.1-1.0); Bun/Creatinine Ratio 14.8 (12.0-20.0); Calcium, Blood 8.8 mg/dL (8.5-10.1); Creatinine, Blood 1.62 mg/dL (0.40-1.00); Globulin, Blood 3.4 g/dL (2.2-4.0); Potassium, Blood 4.6 mmol/L (3.5-5.5); Total Protein, Blood 6.8 g/dL (6.4-8.2)
== END | disposition home or self-care (01) ==
LOC: LAB 16:35 → LAB SHORT 16:35
PROVIDERS: Internal Medicine Hematology & Oncology
DX: D59.3 Hemolytic-uremic syndrome (principal)
CPT/HCPCS: 80053; 83615; 86162

== ENCOUNTER → 2018-04-03 | Outpatient (CLI) | payer MEDICARE, OTHER ==
[2018-04-03 20:25] LABS: Albumin, Blood 3.4 g/dL (3.4-5.0); Albumin/Globulin Ratio 1.1 (0.8-1.8); Bilirubin, Total 0.1 mg/dL (0.1-1.0); Bun/Creatinine Ratio 10.5 (12.0-20.0); Calcium, Blood 8.6 mg/dL (8.5-10.1); Creatinine, Blood 2.09 mg/dL (0.40-1.00); Globulin, Blood 3.2 g/dL (2.2-4.0); Potassium, Blood 4.9 mmol/L (3.5-5.5); Total Protein, Blood 6.6 g/dL (6.4-8.2)
== END ==
LOC: LAB SHORT 18:55 → LAB 18:55
PROVIDERS: Internal Medicine Hematology & Oncology
DX: D59.3 Hemolytic-uremic syndrome (principal)
CPT/HCPCS: 80053; 86162

== ENCOUNTER → 2018-04-15 | Outpatient (CLI) | payer MEDICARE, OTHER ==
[2018-04-15 17:48] LABS: Albumin, Blood 3.7 g/dL (3.4-5.0); Albumin/Globulin Ratio 1.1 (0.8-1.8); Bilirubin, Total 0.3 mg/dL (0.1-1.0); Bun/Creatinine Ratio 16.1 (12.0-20.0); Calcium, Blood 8.9 mg/dL (8.5-10.1); Creatinine, Blood 1.61 mg/dL (0.40-1.00); Globulin, Blood 3.5 g/dL (2.2-4.0); Potassium, Blood 4.6 mmol/L (3.5-5.5); Total Protein, Blood 7.2 g/dL (6.4-8.2)
== END | disposition home or self-care (01) ==
LOC: LAB SHORT 16:36 → LAB 16:36
PROVIDERS: Internal Medicine Hematology & Oncology
DX: D59.3 Hemolytic-uremic syndrome (principal)
CPT/HCPCS: 80053; 86162

== ENCOUNTER → 2018-04-25 | Outpatient (CLI) | payer MEDICARE, OTHER ==
[2018-04-25 18:43] LABS: Albumin, Blood 3.5 g/dL (3.4-5.0); Albumin/Globulin Ratio 1.1 (0.8-1.8); Bilirubin, Total 0.4 mg/dL (0.1-1.0); Bun/Creatinine Ratio 14.1 (12.0-20.0); Calcium, Blood 8.8 mg/dL (8.5-10.1); Creatinine, Blood 1.56 mg/dL (0.40-1.00); Globulin, Blood 3.3 g/dL (2.2-4.0); Potassium, Blood 4.6 mmol/L (3.5-5.5); Total Protein, Blood 6.8 g/dL (6.4-8.2)
== END | disposition home or self-care (01) ==
LOC: LAB SHORT 16:53 → LAB 16:53
PROVIDERS: Internal Medicine Hematology & Oncology
DX: D59.3 Hemolytic-uremic syndrome (principal)
CPT/HCPCS: 80053; 86162

== ENCOUNTER → 2018-05-06 | Outpatient (CLI) | payer MEDICARE, OTHER ==
[2018-05-06 19:51] LABS: Albumin, Blood 3.4 g/dL (3.4-5.0); Albumin/Globulin Ratio 1.1 (0.8-1.8); Bilirubin, Total 0.2 mg/dL (0.1-1.0); Bun/Creatinine Ratio 11.2 (12.0-20.0); Calcium, Blood 8.3 mg/dL (8.5-10.1); Creatinine, Blood 1.79 mg/dL (0.40-1.00); Globulin, Blood 3.1 g/dL (2.2-4.0); Potassium, Blood 4.6 mmol/L (3.5-5.5); Total Protein, Blood 6.5 g/dL (6.4-8.2)
== END | disposition home or self-care (01) ==
LOC: LAB 19:01 → LAB SHORT 19:01
PROVIDERS: Internal Medicine Hematology & Oncology
DX: D59.3 Hemolytic-uremic syndrome (principal)
CPT/HCPCS: 80053; 83615; 86162

== ENCOUNTER → 2018-05-20 | Outpatient (CLI) | payer MEDICARE, OTHER ==
[2018-05-20 17:25] LABS: Albumin, Blood 3.3 g/dL (3.4-5.0); Bilirubin, Total 0.2 mg/dL (0.1-1.0); Bun/Creatinine Ratio 14.4 (12.0-20.0); Calcium, Blood 8.7 mg/dL (8.5-10.1); Creatinine, Blood 1.39 mg/dL (0.40-1.00); Globulin, Blood 3.2 g/dL (2.2-4.0); Potassium, Blood 4.7 mmol/L (3.5-5.5); Total Protein, Blood 6.5 g/dL (6.4-8.2)
== END | disposition home or self-care (01) ==
LOC: LAB 16:37 → LAB SHORT 16:37
PROVIDERS: Internal Medicine Hematology & Oncology
DX: D59.3 Hemolytic-uremic syndrome (principal)
CPT/HCPCS: 80053; 86162

== ENCOUNTER → 2018-06-04 | Outpatient (CLI) | payer MEDICARE, OTHER ==
[2018-06-04 18:24] LABS: Albumin, Blood 3.4 g/dL (3.4-5.0); Bilirubin, Total 0.3 mg/dL (0.1-1.0); Calcium, Blood 9.3 mg/dL (8.5-10.1); Creatinine, Blood 1.6 mg/dL (0.40-1.00); Globulin, Blood 3.3 g/dL (2.2-4.0); Potassium, Blood 4.7 mmol/L (3.5-5.5); Total Protein, Blood 6.7 g/dL (6.4-8.2)
== END | disposition home or self-care (01) ==
LOC: LAB SHORT 15:41 → LAB 15:41
PROVIDERS: Internal Medicine Hematology & Oncology
DX: D59.3 Hemolytic-uremic syndrome (principal)
CPT/HCPCS: 80053

== ENCOUNTER → 2018-06-16 | Outpatient (CLI) | payer MEDICARE, OTHER ==
[2018-06-16 20:20] LABS: Albumin, Blood 3.5 g/dL (3.4-5.0); Bilirubin, Total 0.6 mg/dL (0.1-1.0); Bun/Creatinine Ratio 15.6 (12.0-20.0); Calcium, Blood 9.2 mg/dL (8.5-10.1); Creatinine, Blood 1.41 mg/dL (0.40-1.00); Globulin, Blood 3.6 g/dL (2.2-4.0); Potassium, Blood 5.2 mmol/L (3.5-5.5); Total Protein, Blood 7.1 g/dL (6.4-8.2)
== END | disposition home or self-care (01) ==
LOC: LAB SHORT 18:23 → LAB 18:23
PROVIDERS: Internal Medicine Hematology & Oncology
DX: D59.3 Hemolytic-uremic syndrome (principal)
CPT/HCPCS: 80053; 86162

== ENCOUNTER → 2018-06-30 | Outpatient (CLI) | payer MEDICARE, OTHER ==
[2018-06-30 16:16] LABS: BASOPHILS ABSOLUTE AUTO 0.07 K/mm3 (0.00-0.23); BASOPHILS PERCENT AUTO 1 % (0-2); EOSINOPHILS ABSOLUTE AUTO 1.53 K/mm3 (0.00-0.68); EOSINOPHILS PERCENT AUTO 19 % (0-6); Hematocrit 39.9 % (33.0-51.0); Hemoglobin 11.9 g/dL (11.5-16.0); IMMATURE GRAN ABSOLUTE AUTO 0.01 K/mm3 (0.00-0.10); IMMATURE GRAN PERCENT AUTO 0 % (0-1); LYMPHOCYTES ABSOLUTE AUTO 2.37 K/mm3 (0.84-5.20); LYMPHOCYTES PERCENT AUTO 30 % (21-46); MONOCYTES ABSOLUTE AUTO 0.61 K/mm3 (0.16-1.47); MONOCYTES PERCENT AUTO 8 % (4-13); Mean Corpuscular HGB 26.2 pg (26.0-34.0); Mean Corpuscular HGB Conc 29.8 g/dL (31.5-36.5); Mean Corpuscular Volume 88 fL (80-100); Mean Platelet Volume 11.3 fL (9.1-12.4); NEUTROPHILS ABSOLUTE AUTO 3.36 K/mm3 (1.96-9.15); NEUTROPHILS PERCENT AUTO 42 % (41-73); Platelet Count 235 K/mm3 (150-400); RDW Coefficient Variation 15.9 % (11.7-14.2); RDW Standard Deviation 51.3 fL (35.1-46.3); Red Blood Cell Count 4.55 M/mm3 (3.80-5.20); White Blood Cell Count 7.95 K/mm3 (4.00-11.30)
[2018-06-30 16:25] LABS: Albumin, Blood 3.3 g/dL (3.4-5.0); Albumin/Globulin Ratio 0.9 (0.8-1.8); Bilirubin, Total 0.3 mg/dL (0.1-1.0); Bun/Creatinine Ratio 12.6 (12.0-20.0); Calcium, Blood 8.6 mg/dL (8.5-10.1); Creatinine, Blood 2.22 mg/dL (0.40-1.00); Globulin, Blood 3.6 g/dL (2.2-4.0); Potassium, Blood 4.7 mmol/L (3.5-5.5); Total Protein, Blood 6.9 g/dL (6.4-8.2)
== END | disposition home or self-care (01) ==
LOC: LAB SHORT 14:43 → LAB 14:43
PROVIDERS: Internal Medicine Hematology & Oncology
DX: D59.3 Hemolytic-uremic syndrome (principal)
CPT/HCPCS: 80053; 85025

== ENCOUNTER → 2018-07-02 | Outpatient (CLI) | payer MEDICARE, OTHER ==
[2018-07-02 14:19] LABS: BASOPHILS ABSOLUTE AUTO 0.08 K/mm3 (0.00-0.23); BASOPHILS PERCENT AUTO 1 % (0-2); EOSINOPHILS ABSOLUTE AUTO 1.83 K/mm3 (0.00-0.68); EOSINOPHILS PERCENT AUTO 22 % (0-6); Hematocrit 41.9 % (33.0-51.0); Hemoglobin 12.6 g/dL (11.5-16.0); IMMATURE GRAN ABSOLUTE AUTO 0.02 K/mm3 (0.00-0.10); IMMATURE GRAN PERCENT AUTO 0 % (0-1); LYMPHOCYTES ABSOLUTE AUTO 2.33 K/mm3 (0.84-5.20); LYMPHOCYTES PERCENT AUTO 27 % (21-46); MONOCYTES ABSOLUTE AUTO 0.42 K/mm3 (0.16-1.47); MONOCYTES PERCENT AUTO 5 % (4-13); Mean Corpuscular HGB 26.2 pg (26.0-34.0); Mean Corpuscular HGB Conc 30.1 g/dL (31.5-36.5); Mean Corpuscular Volume 87 fL (80-100); Mean Platelet Volume 10.7 fL (9.1-12.4); NEUTROPHILS ABSOLUTE AUTO 3.81 K/mm3 (1.96-9.15); NEUTROPHILS PERCENT AUTO 45 % (41-73); Platelet Count 272 K/mm3 (150-400); RDW Coefficient Variation 15.7 % (11.7-14.2); RDW Standard Deviation 50.4 fL (35.1-46.3); Red Blood Cell Count 4.81 M/mm3 (3.80-5.20); White Blood Cell Count 8.49 K/mm3 (4.00-11.30)
[2018-07-02 14:43] LABS: Alanine Aminotransfer (ALT/SGP 14 U/L (12-78); Albumin, Blood 3.5 g/dL (3.4-5.0); Alk Phos 61 U/L (50-136); Anion Gap 5 mmol/L (6-16); Aspartate Aminotrans (AST/SGOT 8 U/L (12-37); Bilirubin, Direct <0.1 mg/dL (0.0-0.3); Bilirubin, Indirect Unable to Calculate mg/dL (0.1-0.7); Bilirubin, Total 0.3 mg/dL (0.1-1.0); Blood Urea Nitrogen 24 mg/dL (8-24); Bun/Creatinine Ratio 14.6 (12.0-20.0); CO2, Blood 29 mmol/L (21-32); Calcium, Blood 9.3 mg/dL (8.5-10.1); Chloride, Blood 107 mmol/L (98-108); Creatinine, Blood 1.64 mg/dL (0.40-1.00); Globulin, Blood 3.6 g/dL (2.2-4.0); Glomerular Filtration Rate 36 (60-); Glucose, Blood 124 mg/dL (70-99); Phosphorus, Blood 2.8 mg/dL (2.5-4.9); Potassium, Blood 4.2 mmol/L (3.5-5.5); Sodium, Blood 141 mmol/L (136-145); Total Protein, Blood 7.1 g/dL (6.4-8.2)
== END | disposition home or self-care (01) ==
LOC: LAB SHORT 14:11 → LAB 14:11
PROVIDERS: Internal Medicine Nephrology
DX: N18.3 Chronic kidney disease, stage 3 (moderate) (principal); D63.1 Anemia in chronic kidney disease; R94.5 Abnormal results of liver function studies; R10.9 Unspecified abdominal pain
CPT/HCPCS: 80053; 82248; 83690; 84100; 85025

== ENCOUNTER → 2018-07-08 | Outpatient (CLI) | payer MEDICARE, OTHER ==
[2018-07-08 19:30] LABS: Albumin, Blood 3.7 g/dL (3.4-5.0); Albumin/Globulin Ratio 1.1 (0.8-1.8); Bilirubin, Total 0.5 mg/dL (0.1-1.0); Bun/Creatinine Ratio 13.4 (12.0-20.0); Calcium, Blood 9.2 mg/dL (8.5-10.1); Creatinine, Blood 1.64 mg/dL (0.40-1.00); Globulin, Blood 3.4 g/dL (2.2-4.0); Potassium, Blood 4.3 mmol/L (3.5-5.5); Total Protein, Blood 7.1 g/dL (6.4-8.2)
== END | disposition home or self-care (01) ==
LOC: LAB 13:00 → LAB SHORT 13:00
PROVIDERS: Internal Medicine Hematology & Oncology
DX: D59.3 Hemolytic-uremic syndrome (principal)
CPT/HCPCS: 80053

== ENCOUNTER → 2018-07-22 | Outpatient (CLI) | payer MEDICARE, OTHER ==
[2018-07-22 19:41] LABS: Albumin, Blood 3.3 g/dL (3.4-5.0); Bilirubin, Total 0.3 mg/dL (0.1-1.0); Bun/Creatinine Ratio 19.2 (12.0-20.0); Creatinine, Blood 1.67 mg/dL (0.40-1.00); Globulin, Blood 3.4 g/dL (2.2-4.0); Potassium, Blood 5.1 mmol/L (3.5-5.5); Total Protein, Blood 6.7 g/dL (6.4-8.2)
== END | disposition home or self-care (01) ==
LOC: LAB SHORT 18:39 → LAB 18:39
PROVIDERS: Internal Medicine Hematology & Oncology
DX: D59.3 Hemolytic-uremic syndrome (principal)
CPT/HCPCS: 80053; 83615

== ENCOUNTER → 2018-08-05 | Outpatient (CLI) | payer MEDICARE, OTHER ==
[2018-08-05 17:49] LABS: Albumin, Blood 3.5 g/dL (3.4-5.0); Bilirubin, Total 0.4 mg/dL (0.1-1.0); Bun/Creatinine Ratio 15.6 (12.0-20.0); Calcium, Blood 8.7 mg/dL (8.5-10.1); Creatinine, Blood 1.41 mg/dL (0.40-1.00); Globulin, Blood 3.4 g/dL (2.2-4.0); Potassium, Blood 4.2 mmol/L (3.5-5.5); Total Protein, Blood 6.9 g/dL (6.4-8.2)
== END | disposition home or self-care (01) ==
LOC: LAB 16:38 → LAB SHORT 16:38
PROVIDERS: Internal Medicine Hematology & Oncology
DX: D59.3 Hemolytic-uremic syndrome (principal)
CPT/HCPCS: 80053; 83615

== ENCOUNTER → 2018-08-15 | Outpatient (CLI) | payer MEDICARE, OTHER ==
[2018-08-15 13:09] LABS: Albumin, Blood 3.7 g/dL (3.4-5.0); Albumin/Globulin Ratio 1.1 (0.8-1.8); Bilirubin, Total 0.3 mg/dL (0.1-1.0); Bun/Creatinine Ratio 18.6 (12.0-20.0); Creatinine, Blood 2.21 mg/dL (0.40-1.00); Globulin, Blood 3.4 g/dL (2.2-4.0); Potassium, Blood 4.4 mmol/L (3.5-5.5); Total Protein, Blood 7.1 g/dL (6.4-8.2)
== END | disposition home or self-care (01) ==
LOC: LAB SHORT 12:45 → LAB 12:45
PROVIDERS: Internal Medicine Hematology & Oncology
DX: D59.3 Hemolytic-uremic syndrome (principal)
CPT/HCPCS: 80053; 83615

== ENCOUNTER → 2018-09-01 | Outpatient (CLI) | payer MEDICARE, OTHER ==
[~2018-09-01] MED LIST changes: +ALUM320SU PO; +AMOCLA875 PO; +Augmentin 875-1 EACH PO; +CARV6.25 PO; +CUBICIN500 MG IV; +Culturelle1 CAP PO; +ELIQUIS5 M2 PO; +ESCI10 PO; +FLUC200 PO; +Florastor250 MG PO; +GENTAMICIN IV; +HYDRA25 PO; +LEVFLO500 IV; +LIDO700A20 TOP; +MAXIPIME2 GM IV; +NARCAN4 MG INH; +OMEPRAZOLE20 MG PO; +SEVEC800 PO; +TORSE20 PO; +TUMS500 MG PO
[2018-09-01 13:17] LABS: BASOPHILS ABSOLUTE AUTO 0.09 K/mm3 (0.00-0.23); BASOPHILS PERCENT AUTO 1 % (0-2); EOSINOPHILS PERCENT AUTO 7 % (0-6); Hematocrit 40.4 % (33.0-51.0); Hemoglobin 12.4 g/dL (11.5-16.0); IMMATURE GRAN ABSOLUTE AUTO 0.03 K/mm3 (0.00-0.10); IMMATURE GRAN PERCENT AUTO 0 % (0-1); LYMPHOCYTES ABSOLUTE AUTO 2.11 K/mm3 (0.84-5.20); LYMPHOCYTES PERCENT AUTO 24 % (21-46); MONOCYTES ABSOLUTE AUTO 0.57 K/mm3 (0.16-1.47); MONOCYTES PERCENT AUTO 7 % (4-13); Mean Corpuscular HGB 27.1 pg (26.0-34.0); Mean Corpuscular HGB Conc 30.7 g/dL (31.5-36.5); Mean Corpuscular Volume 88 fL (80-100); Mean Platelet Volume 10.4 fL (9.1-12.4); NEUTROPHILS ABSOLUTE AUTO 5.43 K/mm3 (1.96-9.15); NEUTROPHILS PERCENT AUTO 62 % (41-73); Platelet Count 288 K/mm3 (150-400); RDW Coefficient Variation 15.2 % (11.7-14.2); RDW Standard Deviation 49.5 fL (35.1-46.3); Red Blood Cell Count 4.57 M/mm3 (3.80-5.20); White Blood Cell Count 8.83 K/mm3 (4.00-11.30)
[2018-09-01 13:26] LABS: Alanine Aminotransfer (ALT/SGP 18 U/L (12-78); Albumin, Blood 3.5 g/dL (3.4-5.0); Albumin/Globulin Ratio 1.1 (0.8-1.8); Alk Phos 57 U/L (50-136); Anion Gap 5 mmol/L (6-16); Aspartate Aminotrans (AST/SGOT 7 U/L (12-37); Bilirubin, Direct <0.1 mg/dL (0.0-0.3); Bilirubin, Indirect Unable to Calculate mg/dL (0.1-0.7); Bilirubin, Total 0.3 mg/dL (0.1-1.0); Blood Urea Nitrogen 26 mg/dL (8-24); Bun/Creatinine Ratio 14.9 (12.0-20.0); CO2, Blood 28 mmol/L (21-32); Calcium, Blood 8.8 mg/dL (8.5-10.1); Chloride, Blood 110 mmol/L (98-108); Creatinine, Blood 1.75 mg/dL (0.40-1.00); Globulin, Blood 3.2 g/dL (2.2-4.0); Glomerular Filtration Rate 34 (60-); Glucose, Blood 83 mg/dL (70-99); Phosphorus, Blood 2.1 mg/dL (2.5-4.9); Potassium, Blood 4.5 mmol/L (3.5-5.5); Sodium, Blood 143 mmol/L (136-145); Total Protein, Blood 6.7 g/dL (6.4-8.2)
== END | disposition home or self-care (01) ==
LOC: LAB SHORT 13:03 → LAB 13:03
PROVIDERS: Internal Medicine Nephrology
DX: N18.4 Chronic kidney disease, stage 4 (severe) (principal); D63.1 Anemia in chronic kidney disease; D59.3 Hemolytic-uremic syndrome
CPT/HCPCS: 80053; 82248; 84100; 85025; 86162

== ENCOUNTER → 2018-09-11 | Outpatient (CLI) | payer MEDICARE, OTHER ==
[2018-09-11 18:18] LABS: Albumin, Blood 3.6 g/dL (3.4-5.0); Albumin/Globulin Ratio 1.2 (0.8-1.8); Bilirubin, Total 0.3 mg/dL (0.1-1.0); Bun/Creatinine Ratio 17.8 (12.0-20.0); Calcium, Blood 8.7 mg/dL (8.5-10.1); Creatinine, Blood 1.52 mg/dL (0.40-1.00); Potassium, Blood 4.7 mmol/L (3.5-5.5); Total Protein, Blood 6.6 g/dL (6.4-8.2)
== END | disposition home or self-care (01) ==
LOC: LAB SHORT 17:26 → LAB 17:26
PROVIDERS: Internal Medicine Hematology & Oncology
DX: D59.3 Hemolytic-uremic syndrome (principal)
CPT/HCPCS: 80053; 86162

== ENCOUNTER → 2018-09-23 | Outpatient (CLI) | payer MEDICARE, OTHER ==
[2018-09-23 21:40] LABS: Alanine Aminotransfer (ALT/SGP 19 U/L (12-78); Albumin, Blood 3.6 g/dL (3.4-5.0); Albumin/Globulin Ratio 1.2 (0.8-1.8); Alk Phos 59 U/L (50-136); Anion Gap 4 mmol/L (6-16); Aspartate Aminotrans (AST/SGOT 17 U/L (12-37); Bilirubin, Direct <0.1 mg/dL (0.0-0.3); Bilirubin, Indirect Unable to Calculate mg/dL (0.1-0.7); Bilirubin, Total 0.3 mg/dL (0.1-1.0); Blood Urea Nitrogen 29 mg/dL (8-24); Bun/Creatinine Ratio 16.9 (12.0-20.0); CO2, Blood 29 mmol/L (21-32); Calcium, Blood 9.3 mg/dL (8.5-10.1); Chloride, Blood 106 mmol/L (98-108); Creatinine, Blood 1.72 mg/dL (0.40-1.00); Globulin, Blood 3.1 g/dL (2.2-4.0); Glomerular Filtration Rate 34 (60-); Glucose, Blood 85 mg/dL (70-99); Phosphorus, Blood 3.5 mg/dL (2.5-4.9); Potassium, Blood 4.4 mmol/L (3.5-5.5); Sodium, Blood 139 mmol/L (136-145); Total Protein, Blood 6.7 g/dL (6.4-8.2)
== END | disposition home or self-care (01) ==
LOC: LAB 12:30 → LAB SHORT 12:30
PROVIDERS: Internal Medicine Nephrology
DX: D59.3 Hemolytic-uremic syndrome (principal); N18.2 Chronic kidney disease, stage 2 (mild); D63.1 Anemia in chronic kidney disease
CPT/HCPCS: 80053; 82248; 84100; 86162

== ENCOUNTER → 2018-10-03 | Outpatient (CLI) | payer MEDICARE, OTHER ==
[2018-10-03 10:18] LABS: BASOPHILS ABSOLUTE AUTO 0.11 K/mm3 (0.00-0.23); BASOPHILS PERCENT AUTO 1 % (0-2); EOSINOPHILS ABSOLUTE AUTO 0.52 K/mm3 (0.00-0.68); EOSINOPHILS PERCENT AUTO 5 % (0-6); Hematocrit 40.1 % (33.0-51.0); Hemoglobin 12.4 g/dL (11.5-16.0); IMMATURE GRAN ABSOLUTE AUTO 0.03 K/mm3 (0.00-0.10); IMMATURE GRAN PERCENT AUTO 0 % (0-1); LYMPHOCYTES ABSOLUTE AUTO 3.35 K/mm3 (0.84-5.20); LYMPHOCYTES PERCENT AUTO 33 % (21-46); MONOCYTES ABSOLUTE AUTO 0.73 K/mm3 (0.16-1.47); MONOCYTES PERCENT AUTO 7 % (4-13); Mean Corpuscular HGB 26.7 pg (26.0-34.0); Mean Corpuscular HGB Conc 30.9 g/dL (31.5-36.5); Mean Corpuscular Volume 86 fL (80-100); Mean Platelet Volume 10.9 fL (9.1-12.4); NEUTROPHILS ABSOLUTE AUTO 5.51 K/mm3 (1.96-9.15); NEUTROPHILS PERCENT AUTO 54 % (41-73); Platelet Count 232 K/mm3 (150-400); RDW Coefficient Variation 14.8 % (11.7-14.2); RDW Standard Deviation 46.5 fL (35.1-46.3); Red Blood Cell Count 4.65 M/mm3 (3.80-5.20); White Blood Cell Count 10.25 K/mm3 (4.00-11.30)
[2018-10-03 14:50] LABS: Albumin, Blood 3.4 g/dL (3.4-5.0); Albumin/Globulin Ratio 1.2 (0.8-1.8); Bilirubin, Total 0.5 mg/dL (0.1-1.0); Bun/Creatinine Ratio 15.6 (12.0-20.0); Calcium, Blood 8.8 mg/dL (8.5-10.1); Creatinine, Blood 1.41 mg/dL (0.40-1.00); Globulin, Blood 2.8 g/dL (2.2-4.0); Potassium, Blood 4.3 mmol/L (3.5-5.5); Total Protein, Blood 6.2 g/dL (6.4-8.2)
== END | disposition home or self-care (01) ==
LOC: LAB 09:19 → LAB SHORT 09:19
PROVIDERS: Internal Medicine Hematology & Oncology
DX: D59.3 Hemolytic-uremic syndrome (principal)
CPT/HCPCS: 80053; 85025; 86162

== ENCOUNTER 2018-10-07 12:01 | Emergency (ER) | payer MEDICARE, OTHER ==
[~2018-10-07] VITALS: Ht 182.9 cm; Wt 87.1 kg
[~2018-10-07 12:01] MED LIST changes: -ALUM320SU PO; -AMOCLA875 PO; -Augmentin 875-1 EACH PO; -CARV6.25 PO; -CUBICIN500 MG IV; -Culturelle1 CAP PO; -ELIQUIS5 M2 PO; -ESCI10 PO; -FLUC200 PO; -Florastor250 MG PO; -GENTAMICIN IV; -HYDRA25 PO; -LEVFLO500 IV; -LIDO700A20 TOP; -MAXIPIME2 GM IV; -NARCAN4 MG INH; -OMEPRAZOLE20 MG PO; -SEVEC800 PO; -TORSE20 PO; -TUMS500 MG PO
[2018-10-07] MEDS ORDERED: HYDMOR2 PO (12:34)
[2018-10-07] MEDS ORDERED: ALUM320SU PO (12:35)
[2018-10-07] MEDS ORDERED: HYDRA25 PO (12:39)
[2018-10-07] MEDS ORDERED: CARV6.25 PO (12:40)
[2018-10-07] MEDS ORDERED: Promethazine12.5 M1 PO (12:40)
[2018-10-07] MEDS ORDERED: ESCI10 PO (12:41)
[2018-10-07 14:01] LABS: International Normalized Ratio 0.97; Prothrombin Time Results 10.3 Sec (9.7-11.5)
[2018-12-08] MEDS ORDERED: OXYC10TA19 PO (17:52)
== END 2018-10-07 16:20 | disposition short-term general hospital (02) ==
LOC: ER 12:01
PROVIDERS: Emergency Medicine
DX: D59.3 Hemolytic-uremic syndrome (principal); N17.9 Acute kidney failure, unspecified; D75.1 Secondary polycythemia; Z88.6 Allergy status to analgesic agent; Z88.8 Allergy status to other drugs, medicaments and biological substances; Z88.5 Allergy status to narcotic agent; Z79.899 Other long term (current) drug therapy; N18.3 Chronic kidney disease, stage 3 (moderate); D63.1 Anemia in chronic kidney disease; N25.81 Secondary hyperparathyroidism of renal origin; E55.9 Vitamin D deficiency, unspecified; E78.00 Pure hypercholesterolemia, unspecified; R76.9 Abnormal immunological finding in serum, unspecified; R94.5 Abnormal results of liver function studies; R94.6 Abnormal results of thyroid function studies
CPT/HCPCS: 36415; 80053; 82150; 82248; 83690; 84100; 85025; 85610; 85730; 96361; 96374; 99284-25; J2060; J7030

== ENCOUNTER 2018-11-10 11:10 | Day surgery (SDC) | payer MEDICARE, OTHER ==
[~2018-11-10 11:10] MED LIST changes: +ALUM320SU PO; +CARV6.25 PO; +ESCI10 PO; +HYDRA25 PO
[2018-11-10] MEDS ORDERED: TUMS500 MG PO (16:37)
[2018-11-10] MEDS ORDERED: MAXIPIME2 GM IV (16:38)
[2018-11-10] MEDS ORDERED: CUBICIN500 MG IV (16:39)
[2018-11-10] MEDS ORDERED: ELIQUIS5 M2 PO (16:40)
[2018-11-10] MEDS ORDERED: FLUC200 PO (16:41)
[2018-11-10] MEDS ORDERED: Culturelle1 CAP PO (16:42)
[2018-11-10] MEDS ORDERED: LIDO700A20 TOP (16:43)
[2018-11-10] MEDS ORDERED: OMEPRAZOLE20 MG PO (16:46)
[2018-11-10] MEDS ORDERED: NARCAN4 MG INH (16:46)
[2018-11-10] MEDS ORDERED: SEVEC800 PO (16:47)
[2018-11-10] MEDS ORDERED: TORSE20 PO (16:49)
[2018-12-08] MEDS ORDERED: OXYC10TA19 PO (17:52)
== END 2018-11-10 22:47 | disposition home or self-care (01) ==
LOC: ATC 11:10
DX: R78.81 Bacteremia (principal); B95.8 Unspecified staphylococcus as the cause of diseases classified elsewhere; N17.9 Acute kidney failure, unspecified; M31.1 Thrombotic microangiopathy; D59.3 Hemolytic-uremic syndrome; I87.1 Compression of vein; F41.8 Other specified anxiety disorders
CPT/HCPCS: 96365; 96368; J0692; J0878

== ENCOUNTER 2018-11-12 15:10 | Day surgery (SDC) | payer MEDICARE, OTHER ==
[~2018-11-12 15:10] MED LIST changes: +CUBICIN500 MG IV; +Culturelle1 CAP PO; +ELIQUIS5 M2 PO; +FLUC200 PO; +LIDO700A20 TOP; +MAXIPIME2 GM IV; +NARCAN4 MG INH; +OMEPRAZOLE20 MG PO; +SEVEC800 PO; +TORSE20 PO; +TUMS500 MG PO
[2018-12-08] MEDS ORDERED: OXYC10TA19 PO (17:52)
== END 2018-11-12 16:12 | disposition home or self-care (01) ==
LOC: ATC 15:10
DX: T82.7XXA Infection and inflammatory reaction due to other cardiac and vascular devices, implants and grafts, initial encounter (principal); R78.81 Bacteremia; D59.3 Hemolytic-uremic syndrome; N17.9 Acute kidney failure, unspecified
CPT/HCPCS: 96365; 96368; J0692; J0878

== ENCOUNTER → 2018-11-13 | Outpatient (CLI) | payer MEDICARE, OTHER ==
[~2018-11-13] MED LIST changes: +AMOCLA875 PO; +Augmentin 875-1 EACH PO; +Florastor250 MG PO; +GENTAMICIN IV; +LEVFLO500 IV
[2018-11-13 12:49] LABS: Albumin, Blood 3.3 g/dL (3.4-5.0); Albumin/Globulin Ratio 0.8 (0.8-1.8); Bilirubin, Total 0.2 mg/dL (0.1-1.0); Bun/Creatinine Ratio 7.7 (12.0-20.0); Calcium, Blood 9.2 mg/dL (8.5-10.1); Creatinine, Blood 5.04 mg/dL (0.40-1.00); Globulin, Blood 3.9 g/dL (2.2-4.0); Potassium, Blood 4.5 mmol/L (3.5-5.5); Total Protein, Blood 7.2 g/dL (6.4-8.2)
== END | disposition home or self-care (01) ==
LOC: LAB 11:05 → LAB SHORT 11:05
PROVIDERS: Internal Medicine Hematology & Oncology
DX: D59.3 Hemolytic-uremic syndrome (principal)
CPT/HCPCS: 80053; 86162

== ENCOUNTER 2018-11-14 15:07 | Day surgery (SDC) | payer MEDICARE, OTHER ==
[~2018-11-14 15:07] MED LIST changes: -AMOCLA875 PO; -Augmentin 875-1 EACH PO; -Florastor250 MG PO; -GENTAMICIN IV; -LEVFLO500 IV
[2018-11-14 16:06] LABS: BASOPHILS ABSOLUTE AUTO 0.02 K/mm3 (0.00-0.23); BASOPHILS PERCENT AUTO 0 % (0-2); EOSINOPHILS PERCENT AUTO 1 % (0-6); Hematocrit 30.3 % (33.0-51.0); Hemoglobin 9.6 g/dL (11.5-16.0); IMMATURE GRAN ABSOLUTE AUTO 0.07 K/mm3 (0.00-0.10); IMMATURE GRAN PERCENT AUTO 1 % (0-1); LYMPHOCYTES ABSOLUTE AUTO 2.06 K/mm3 (0.84-5.20); LYMPHOCYTES PERCENT AUTO 14 % (21-46); MONOCYTES ABSOLUTE AUTO 0.87 K/mm3 (0.16-1.47); MONOCYTES PERCENT AUTO 6 % (4-13); Mean Corpuscular HGB 29.3 pg (26.0-34.0); Mean Corpuscular HGB Conc 31.7 g/dL (31.5-36.5); Mean Corpuscular Volume 92 fL (80-100); Mean Platelet Volume 12.1 fL (9.1-12.4); NEUTROPHILS ABSOLUTE AUTO 11.51 K/mm3 (1.96-9.15); NEUTROPHILS PERCENT AUTO 79 % (41-73); Platelet Count 154 K/mm3 (150-400); RDW Coefficient Variation 15.5 % (11.7-14.2); RDW Standard Deviation 52.1 fL (35.1-46.3); Red Blood Cell Count 3.28 M/mm3 (3.80-5.20); White Blood Cell Count 14.63 K/mm3 (4.00-11.30)
[2018-11-14 16:26] LABS: Albumin, Blood 3.3 g/dL (3.4-5.0); Albumin/Globulin Ratio 0.8 (0.8-1.8); Bilirubin, Total 0.2 mg/dL (0.1-1.0); Bun/Creatinine Ratio 8.7 (12.0-20.0); C-REACTIVE PROTEIN, EXT RANGE 0.41 mg/dL (0.000-0.300); Calcium, Blood 8.6 mg/dL (8.5-10.1); Creatinine, Blood 2.42 mg/dL (0.40-1.00); Globulin, Blood 4.2 g/dL (2.2-4.0); Potassium, Blood 3.6 mmol/L (3.5-5.5); Total Protein, Blood 7.5 g/dL (6.4-8.2)
[2018-12-08] MEDS ORDERED: OXYC10TA19 PO (17:52)
== END 2018-11-14 16:14 | disposition home or self-care (01) ==
LOC: ATC 15:07
PROVIDERS: Internal Medicine Infectious Disease
DX: T82.7XXA Infection and inflammatory reaction due to other cardiac and vascular devices, implants and grafts, initial encounter (principal); N17.9 Acute kidney failure, unspecified; D59.3 Hemolytic-uremic syndrome; R78.81 Bacteremia; I12.9 Hypertensive chronic kidney disease with stage 1 through stage 4 chronic kidney disease, or unspecified chronic kidney disease; N18.4 Chronic kidney disease, stage 4 (severe); G43.909 Migraine, unspecified, not intractable, without status migrainosus; Z79.2 Long term (current) use of antibiotics; Z79.899 Other long term (current) drug therapy; Z88.8 Allergy status to other drugs, medicaments and biological substances; Z88.5 Allergy status to narcotic agent
CPT/HCPCS: 80053; 82550; 85025; 86140; 96365; 96368; J0692; J0878

== ENCOUNTER 2018-11-14 21:42 | Emergency (ER) | payer MEDICARE, OTHER ==
[~2018-11-14] VITALS: Ht 182.9 cm; Wt 93.4 kg
[2018-12-08] MEDS ORDERED: OXYC10TA19 PO (17:52)
== END 2018-11-14 23:27 | disposition home or self-care (01) ==
LOC: ER 21:42
DX: Z48.812 Encounter for surgical aftercare following surgery on the circulatory system (principal); Z88.6 Allergy status to analgesic agent; Z88.8 Allergy status to other drugs, medicaments and biological substances; Z88.5 Allergy status to narcotic agent; Z79.899 Other long term (current) drug therapy; F17.210 Nicotine dependence, cigarettes, uncomplicated
CPT/HCPCS: 99282

== ENCOUNTER 2018-11-17 15:31 | Day surgery (SDC) | payer MEDICARE, OTHER ==
[2018-12-08] MEDS ORDERED: OXYC10TA19 PO (17:52)
== END 2018-11-17 17:00 | disposition home or self-care (01) ==
LOC: ATC 15:31
DX: T82.7XXA Infection and inflammatory reaction due to other cardiac and vascular devices, implants and grafts, initial encounter (principal); N17.9 Acute kidney failure, unspecified; D59.3 Hemolytic-uremic syndrome; I12.9 Hypertensive chronic kidney disease with stage 1 through stage 4 chronic kidney disease, or unspecified chronic kidney disease; N18.4 Chronic kidney disease, stage 4 (severe); Z79.899 Other long term (current) drug therapy; Z79.02 Long term (current) use of antithrombotics/antiplatelets; Z88.8 Allergy status to other drugs, medicaments and biological substances; Z88.5 Allergy status to narcotic agent; Z88.6 Allergy status to analgesic agent
CPT/HCPCS: 96365; 96367; J0692; J0878

== ENCOUNTER 2018-11-19 00:22 | Day surgery (SDC) | payer MEDICARE, OTHER ==
[2018-12-08] MEDS ORDERED: OXYC10TA19 PO (17:52)
== END 2018-11-19 16:21 | disposition home or self-care (01) ==
LOC: ATC 00:22
DX: T82.7XXA Infection and inflammatory reaction due to other cardiac and vascular devices, implants and grafts, initial encounter (principal); N17.9 Acute kidney failure, unspecified; D59.3 Hemolytic-uremic syndrome; I12.9 Hypertensive chronic kidney disease with stage 1 through stage 4 chronic kidney disease, or unspecified chronic kidney disease; N18.4 Chronic kidney disease, stage 4 (severe); Z79.899 Other long term (current) drug therapy; Z79.02 Long term (current) use of antithrombotics/antiplatelets; Z79.01 Long term (current) use of anticoagulants; Z88.8 Allergy status to other drugs, medicaments and biological substances; Z88.5 Allergy status to narcotic agent; Z88.6 Allergy status to analgesic agent
CPT/HCPCS: 96365; 96368; J0692; J0878

== ENCOUNTER 2018-11-21 07:35 | Day surgery (SDC) | payer MEDICARE, OTHER ==
[2018-11-21 15:54] LABS: BASOPHILS ABSOLUTE AUTO 0.08 K/mm3 (0.00-0.23); BASOPHILS PERCENT AUTO 1 % (0-2); EOSINOPHILS ABSOLUTE AUTO 0.86 K/mm3 (0.00-0.68); EOSINOPHILS PERCENT AUTO 9 % (0-6); Hematocrit 31.3 % (33.0-51.0); Hemoglobin 9.9 g/dL (11.5-16.0); IMMATURE GRAN ABSOLUTE AUTO 0.02 K/mm3 (0.00-0.10); IMMATURE GRAN PERCENT AUTO 0 % (0-1); LYMPHOCYTES ABSOLUTE AUTO 3.81 K/mm3 (0.84-5.20); LYMPHOCYTES PERCENT AUTO 42 % (21-46); MONOCYTES ABSOLUTE AUTO 0.88 K/mm3 (0.16-1.47); MONOCYTES PERCENT AUTO 10 % (4-13); Mean Corpuscular HGB 28.9 pg (26.0-34.0); Mean Corpuscular HGB Conc 31.6 g/dL (31.5-36.5); Mean Corpuscular Volume 91 fL (80-100); Mean Platelet Volume 11.2 fL (9.1-12.4); NEUTROPHILS ABSOLUTE AUTO 3.47 K/mm3 (1.96-9.15); NEUTROPHILS PERCENT AUTO 38 % (41-73); Platelet Count 169 K/mm3 (150-400); RDW Coefficient Variation 15.2 % (11.7-14.2); Red Blood Cell Count 3.43 M/mm3 (3.80-5.20); White Blood Cell Count 9.12 K/mm3 (4.00-11.30)
[2018-11-21 16:15] LABS: C-REACTIVE PROTEIN, EXT RANGE <0.290 mg/dL (0.000-0.300)
[2018-11-21 16:19] LABS: Alanine Aminotransfer (ALT/SGP 19 U/L (12-78); Albumin, Blood 3.3 g/dL (3.4-5.0); Albumin/Globulin Ratio 0.8 (0.8-1.8); Alk Phos 53 U/L (50-136); Anion Gap 3 mmol/L (6-16); Aspartate Aminotrans (AST/SGOT 13 U/L (12-37); Bilirubin, Total 0.2 mg/dL (0.1-1.0); Blood Urea Nitrogen 25 mg/dL (8-24); Bun/Creatinine Ratio 6.5 (12.0-20.0); CO2, Blood 33 mmol/L (21-32); CPK Creatine Kinase 45 U/L (26-193); Calcium, Blood 8.8 mg/dL (8.5-10.1); Chloride, Blood 100 mmol/L (98-108); Creatinine, Blood 3.83 mg/dL (0.40-1.00); Globulin, Blood 3.9 g/dL (2.2-4.0); Glomerular Filtration Rate 14 (60-); Glucose, Blood 121 mg/dL (70-99); Potassium, Blood 3.7 mmol/L (3.5-5.5); Sodium, Blood 136 mmol/L (136-145); Total Protein, Blood 7.2 g/dL (6.4-8.2)
[2018-12-08] MEDS ORDERED: OXYC10TA19 PO (17:52)
== END 2018-11-21 16:25 | disposition home or self-care (01) ==
LOC: ATC 07:35
PROVIDERS: Student in an Organized Health Care Education/Training Program
DX: T82.7XXA Infection and inflammatory reaction due to other cardiac and vascular devices, implants and grafts, initial encounter (principal); R78.81 Bacteremia; Z88.8 Allergy status to other drugs, medicaments and biological substances; Z88.5 Allergy status to narcotic agent; Z88.6 Allergy status to analgesic agent; Z79.899 Other long term (current) drug therapy; Z79.01 Long term (current) use of anticoagulants
CPT/HCPCS: 80053; 82550; 85025; 86140; 96365; 96368; J0692; J0878

== ENCOUNTER 2018-11-24 15:06 | Day surgery (SDC) | payer MEDICARE, OTHER ==
[2018-12-08] MEDS ORDERED: OXYC10TA19 PO (17:52)
== END 2018-11-24 16:40 | disposition home or self-care (01) ==
LOC: ATC 15:06
DX: T82.7XXA Infection and inflammatory reaction due to other cardiac and vascular devices, implants and grafts, initial encounter (principal); R78.81 Bacteremia; N17.9 Acute kidney failure, unspecified; D59.3 Hemolytic-uremic syndrome; Z79.899 Other long term (current) drug therapy; Z79.2 Long term (current) use of antibiotics
CPT/HCPCS: 96365; 96368; J0692; J0878

== ENCOUNTER → 2018-11-25 | Outpatient (CLI) | payer MEDICARE, OTHER ==
[~2018-11-25] MED LIST changes: +AMOCLA875 PO; +Augmentin 875-1 EACH PO; +Florastor250 MG PO; +GENTAMICIN IV; +LEVFLO500 IV
[2018-11-25 14:30] LABS: Albumin, Blood 3.2 g/dL (3.4-5.0); Albumin/Globulin Ratio 0.9 (0.8-1.8); Bilirubin, Total 0.3 mg/dL (0.1-1.0); Bun/Creatinine Ratio 7.3 (12.0-20.0); Calcium, Blood 9.3 mg/dL (8.5-10.1); Creatinine, Blood 3.99 mg/dL (0.40-1.00); Globulin, Blood 3.6 g/dL (2.2-4.0); Potassium, Blood 4.2 mmol/L (3.5-5.5); Total Protein, Blood 6.8 g/dL (6.4-8.2)
== END | disposition home or self-care (01) ==
LOC: LAB SHORT 11:40 → LAB 11:40
PROVIDERS: Internal Medicine Hematology & Oncology
DX: D59.3 Hemolytic-uremic syndrome (principal)
CPT/HCPCS: 80053; 86162

== ENCOUNTER 2018-11-26 00:16 | Day surgery (SDC) | payer MEDICARE, OTHER ==
[~2018-11-26 00:16] MED LIST changes: -AMOCLA875 PO; -Augmentin 875-1 EACH PO; -Florastor250 MG PO; -GENTAMICIN IV; -LEVFLO500 IV
--- NOTE | 2018-11-27 15:25 | NUR ---
SPOKE WITH KENNETH AT [facility] OPAT OFFICE. KENNETH REQUESTED LABS FROM 11/25/18 TO BE FAXED TO [facility]. THIS WAS DONE. KENNETH STATES PT WILL BE TRANSFERRING HER CARE TO DR. REGAN IN [place]. NO FURTHER ORDERS WILL BE GIVEN FROM [facility] AT THIS TIME.
[2018-12-08] MEDS ORDERED: OXYC10TA19 PO (17:52)
== END 2018-11-26 16:02 | disposition home or self-care (01) ==
LOC: ATC 00:16
DX: T82.7XXA Infection and inflammatory reaction due to other cardiac and vascular devices, implants and grafts, initial encounter (principal); A49.9 Bacterial infection, unspecified; N17.9 Acute kidney failure, unspecified; D59.3 Hemolytic-uremic syndrome
CPT/HCPCS: 96365; 96368; J0692; J0878

== ENCOUNTER 2018-11-28 14:03 | Day surgery (SDC) | payer MEDICARE, OTHER ==
[2018-12-08] MEDS ORDERED: OXYC10TA19 PO (17:52)
== END 2018-11-28 16:10 | disposition home or self-care (01) ==
LOC: ATC 14:03
DX: T82.7XXA Infection and inflammatory reaction due to other cardiac and vascular devices, implants and grafts, initial encounter (principal); R78.81 Bacteremia; N17.9 Acute kidney failure, unspecified; D59.3 Hemolytic-uremic syndrome
CPT/HCPCS: 96365; 96368; J0692; J0878

== ENCOUNTER 2018-12-01 00:11 | Day surgery (SDC) | payer MEDICARE, OTHER ==
[2018-12-08] MEDS ORDERED: OXYC10TA19 PO (17:52)
== END 2018-12-01 15:55 | disposition home or self-care (01) ==
LOC: ATC 00:11
DX: T82.7XXA Infection and inflammatory reaction due to other cardiac and vascular devices, implants and grafts, initial encounter (principal); N17.9 Acute kidney failure, unspecified; D59.3 Hemolytic-uremic syndrome; R78.81 Bacteremia
CPT/HCPCS: 96365; 96368; J0692; J0878

== ENCOUNTER → 2018-12-04 | Outpatient (CLI) | payer MEDICARE, OTHER ==
[~2018-12-04] MED LIST changes: +AMOCLA875 PO; +Augmentin 875-1 EACH PO; +Florastor250 MG PO; +GENTAMICIN IV; +LEVFLO500 IV
[2018-12-04 15:55] LABS: Alanine Aminotransfer (ALT/SGP 14 U/L (12-78); Albumin, Blood 3.2 g/dL (3.4-5.0); Albumin/Globulin Ratio 0.8 (0.8-1.8); Alk Phos 54 U/L (50-136); Anion Gap 7 mmol/L (6-16); Aspartate Aminotrans (AST/SGOT <3 U/L (12-37); Bilirubin, Total 0.2 mg/dL (0.1-1.0); Blood Urea Nitrogen 20 mg/dL (8-24); CO2, Blood 26 mmol/L (21-32); Calcium, Blood 9.3 mg/dL (8.5-10.1); Chloride, Blood 106 mmol/L (98-108); Creatinine, Blood 2.86 mg/dL (0.40-1.00); Globulin, Blood 3.8 g/dL (2.2-4.0); Glomerular Filtration Rate 19 (60-); Glucose, Blood 138 mg/dL (70-99); Potassium, Blood 4.5 mmol/L (3.5-5.5); Sodium, Blood 139 mmol/L (136-145)
== END | disposition home or self-care (01) ==
LOC: LAB SHORT 11:40 → LAB 11:40
PROVIDERS: Internal Medicine Hematology & Oncology
DX: D59.3 Hemolytic-uremic syndrome (principal)
CPT/HCPCS: 80053; 86162

== ENCOUNTER 2018-12-09 18:50 | Inpatient (IN) | payer MEDICARE, OTHER ==
[~2018-12-09] VITALS: Ht 182.9 cm; Wt 92.5 kg
[~2018-12-09 18:50] MED LIST changes: -AMOCLA875 PO; -Augmentin 875-1 EACH PO; -Florastor250 MG PO; -GENTAMICIN IV; -LEVFLO500 IV
[2018-12-09 19:21] LABS: Hemoglobin 9.1 g/dL (11.5-16.0); Mean Corpuscular HGB 29.3 pg (26.0-34.0); Mean Corpuscular HGB Conc 32.5 g/dL (31.5-36.5); Mean Corpuscular Volume 90 fL (80-100); Mean Platelet Volume 10.2 fL (9.1-12.4); Platelet Count 114 K/mm3 (150-400); RDW Coefficient Variation 14.7 % (11.7-14.2); RDW Standard Deviation 48.6 fL (35.1-46.3); Red Blood Cell Count 3.11 M/mm3 (3.80-5.20); White Blood Cell Count 7.61 K/mm3 (4.00-11.30)
[2018-12-09 19:34] LABS: International Normalized Ratio 1.18; Prothrombin Time Results 12.3 Sec (9.7-11.5)
[2018-12-09 19:41] LABS: Albumin, Blood 2.7 g/dL (3.4-5.0); Albumin/Globulin Ratio 0.8 (0.8-1.8); Bilirubin, Total 0.3 mg/dL (0.1-1.0); Bun/Creatinine Ratio 12.2 (12.0-20.0); Calcium, Blood 8.6 mg/dL (8.5-10.1); Creatinine, Blood 2.79 mg/dL (0.40-1.00); Globulin, Blood 3.5 g/dL (2.2-4.0); Potassium, Blood 3.9 mmol/L (3.5-5.5); Total Protein, Blood 6.2 g/dL (6.4-8.2)
[2018-12-09 19:44] LABS: BAND PERCENT MAN 9 % (0-8); BASOPHILS PERCENT MAN 0 % (0-2); EOSINOPHILS ABSOLUTE MAN 0.22 K/mm3 (0.00-0.68); EOSINOPHILS PERCENT MAN 3 % (0-6); LYMPHOCYTES ABSOLUTE MAN 0.45 K/mm3 (0.84-5.20); LYMPHOCYTES PERCENT MAN 6 % (21-46); MONOCYTES PERCENT MAN 0 % (4-13); NEUTROPHILS ABSOLUTE MAN 6.92 K/mm3 (1.96-9.15); SEG NEUTROPHILS PERCENT MAN 82 % (41-73); TOTAL CELLS COUNTED 100
--- NOTE | 2018-12-09 23:11 | NUR ---
2145 PT ADMITTED TO ROOM 357 PER CART FROM ER, PHOTOENGRAVING SKETCH MAKER RENO NOTIFIED TO CONTACT DIALYSIS NURSE FOR POSSIBLE DIALYSIS TONIGHT. 2300 DR VILLALBA AT BEDSIDE.
--- NOTE | 2018-12-10 01:04 | NUR ---
HD 1:1 NON-ROUTINE HOURS HEMODIALYSIS TREATMENT ORDERED BY DR VILLALBA DUE TO PATIENT ADMIT TO MED FLOOR VIA ER WITH C/O NAUSEA AND MALAISE. PATIENT IN BED, SOMNOLENT BUT WAKENS TO FULL ORIENT. BLOOD CULTURES AND OTHER LABS OBTAINED VIA DIALYSIS ACCESS. R FEMORAL CVC SITE CARE DONE AND NEW NON-CHG DRESSING APPLIED.
--- NOTE | 2018-12-10 04:19 | NUR ---
SHIFT SUMMARY: 43 Y/O FEMALE RESTED COMFORTABLY ALL SHIFT, RECEIVED DIALYSIS AFTER ADMISSION LAST NIGHT (TOLERATED WELL), LACTIC ACID 1.8, C/O NAUSEA WITH ZOFRAN 4MG IVP GIVEN WITH RELIEF FELT, DENIES NEED FOR FENTANYL ORDERED, BED LOW POSITION, CALL LIGHT AT SIDE.
[2018-12-10 05:58] LABS: Hematocrit 25.4 % (33.0-51.0); Hemoglobin 8.1 g/dL (11.5-16.0); Mean Corpuscular HGB 28.8 pg (26.0-34.0); Mean Corpuscular HGB Conc 31.9 g/dL (31.5-36.5); Mean Corpuscular Volume 90 fL (80-100); Mean Platelet Volume 10.7 fL (9.1-12.4); Platelet Count 98 K/mm3 (150-400); RDW Coefficient Variation 15.1 % (11.7-14.2); Red Blood Cell Count 2.81 M/mm3 (3.80-5.20); White Blood Cell Count 7.57 K/mm3 (4.00-11.30)
[2018-12-10 06:17] LABS: Alanine Aminotransfer (ALT/SGP 11 U/L (12-78); Albumin, Blood 2.4 g/dL (3.4-5.0); Albumin/Globulin Ratio 0.7 (0.8-1.8); Alk Phos 43 U/L (50-136); Anion Gap 3 mmol/L (6-16); Aspartate Aminotrans (AST/SGOT 13 U/L (12-37); Bilirubin, Total 0.2 mg/dL (0.1-1.0); Blood Urea Nitrogen 20 mg/dL (8-24); Bun/Creatinine Ratio 10.7 (12.0-20.0); CO2, Blood 32 mmol/L (21-32); Calcium, Blood 8.1 mg/dL (8.5-10.1); Chloride, Blood 105 mmol/L (98-108); Creatinine, Blood 1.87 mg/dL (0.40-1.00); Globulin, Blood 3.4 g/dL (2.2-4.0); Glomerular Filtration Rate 31 (60-); Glucose, Blood 121 mg/dL (70-99); Magnesium, Blood 1.9 mg/dL (1.6-2.4); Phosphorus, Blood 2.6 mg/dL (2.5-4.9); Potassium, Blood 3.8 mmol/L (3.5-5.5); Sodium, Blood 140 mmol/L (136-145); Total Protein, Blood 5.8 g/dL (6.4-8.2); Vancomycin, Random 13.7 ug/mL
--- NOTE | 2018-12-10 10:20 | NUR ---
ECHOCARDIOGRAM COMPLETED
[2018-12-10 14:00] LABS: BASOPHILS ABSOLUTE AUTO 0.03 K/mm3 (0.00-0.23); BASOPHILS PERCENT AUTO 0 % (0-2); EOSINOPHILS ABSOLUTE AUTO 0.41 K/mm3 (0.00-0.68); EOSINOPHILS PERCENT AUTO 6 % (0-6); Hematocrit 26.8 % (33.0-51.0); Hemoglobin 8.6 g/dL (11.5-16.0); IMMATURE GRAN ABSOLUTE AUTO 0.01 K/mm3 (0.00-0.10); IMMATURE GRAN PERCENT AUTO 0 % (0-1); LYMPHOCYTES ABSOLUTE AUTO 1.68 K/mm3 (0.84-5.20); LYMPHOCYTES PERCENT AUTO 24 % (21-46); MONOCYTES ABSOLUTE AUTO 0.65 K/mm3 (0.16-1.47); MONOCYTES PERCENT AUTO 9 % (4-13); Mean Corpuscular HGB 29.6 pg (26.0-34.0); Mean Corpuscular HGB Conc 32.1 g/dL (31.5-36.5); Mean Corpuscular Volume 92 fL (80-100); Mean Platelet Volume 10.2 fL (9.1-12.4); NEUTROPHILS ABSOLUTE AUTO 4.11 K/mm3 (1.96-9.15); NEUTROPHILS PERCENT AUTO 60 % (41-73); Platelet Count 108 K/mm3 (150-400); RDW Standard Deviation 50.4 fL (35.1-46.3); Red Blood Cell Count 2.91 M/mm3 (3.80-5.20); White Blood Cell Count 6.89 K/mm3 (4.00-11.30)
--- NOTE | 2018-12-10 15:53 | NUR ---
Patient is sitting up in bed and alert. Patient shares with me about the rare disease she has and the trouble she has getting medical staff to respond even when at times her life can only be sustained for literally hours if not treated. I talk with patient about speaking to a patient advocate but patient says she does not believe that will help. I will folow up with patient advocate. I also talk at length with patient about her spiritual beliefs, stress management and her family unit complications. I listen empathically and provide a calming presence and praayer. Patient responds well and thanks me for the visit.
[2018-12-10 16:26] LABS: Source, Urine Clean Catch
[2018-12-10 16:32] LABS: Bilirubin, Urine Neg (Neg); Blood, Urine 1+ (Neg); Glucose Qualitative, Urine Neg (Neg); Ketones, Urine Neg (Neg); Leukocyte Esterase, Urine Neg (Neg); Nitrite, Urine Neg (Neg); Protein, Urine 3+ (Neg); Specific Gravity, Urine 1.005 (1.003-1.022); Urobilinogen, Urine NORM (Normal)
[2018-12-10 16:44] LABS: Appearance, Urine Clear (Clear); Color, Urine Yellow (P-Yellow); Squamous Epithelial Cells Few /hpf (Few); White Blood Cells, Urine 0-2 /hpf (0-5)
[2018-12-10 16:45] LABS: Bacteria Few /hpf
--- NOTE | 2018-12-10 19:15 | NUR ---
SHIFT SUMMARY NO ACUTE CHANGES. PATIENT DENIES PAIN AND SHORTNESS OF BREATH. MEDICATED X 1 FOR NAUSEA. PATIENT HAS CONSULTS WITH DR. ATWOOD FOR HER AHUS, WITH DR. VILLALBA FOR RENAL DISEASE, AND DR. BURNHAM FOR REMOVAL OF PERMACATH. PER PATIENT DR. ATWOOD CAME TO SEE PATIENT TODAY, NO NOTE CURRENTLY AVAILABLE. PATIENT UP INDEPENDENT IN ROOM AND LIKES TO WALK IN HALLS OR GO OUTSIDE TO SMOKE. FAMILY VISITED TODAY. CALL LIGHT IN REACH.
[2018-12-11 04:53] LABS: BASOPHILS ABSOLUTE AUTO 0.03 K/mm3 (0.00-0.23); BASOPHILS PERCENT AUTO 1 % (0-2); EOSINOPHILS ABSOLUTE AUTO 0.71 K/mm3 (0.00-0.68); EOSINOPHILS PERCENT AUTO 11 % (0-6); Hematocrit 27.8 % (33.0-51.0); Hemoglobin 8.5 g/dL (11.5-16.0); IMMATURE GRAN ABSOLUTE AUTO 0.01 K/mm3 (0.00-0.10); IMMATURE GRAN PERCENT AUTO 0 % (0-1); LYMPHOCYTES ABSOLUTE AUTO 1.87 K/mm3 (0.84-5.20); LYMPHOCYTES PERCENT AUTO 30 % (21-46); MONOCYTES ABSOLUTE AUTO 0.79 K/mm3 (0.16-1.47); MONOCYTES PERCENT AUTO 13 % (4-13); Mean Corpuscular HGB 29.1 pg (26.0-34.0); Mean Corpuscular HGB Conc 30.6 g/dL (31.5-36.5); Mean Platelet Volume 10.8 fL (9.1-12.4); NEUTROPHILS ABSOLUTE AUTO 2.86 K/mm3 (1.96-9.15); NEUTROPHILS PERCENT AUTO 46 % (41-73); Platelet Count 112 K/mm3 (150-400); RDW Coefficient Variation 14.9 % (11.7-14.2); RDW Standard Deviation 52.1 fL (35.1-46.3); Red Blood Cell Count 2.92 M/mm3 (3.80-5.20); White Blood Cell Count 6.27 K/mm3 (4.00-11.30)
[2018-12-11 04:59] LABS: Mean Corpuscular Volume 95 fL (80-100)
--- NOTE | 2018-12-11 05:02 | NUR ---
SHIFT SUMMARY A/O, ABLE TO MAKE NEEDS KNOWN. COOPERATIVE WITH CARE. CALLS AND ANSWERS QUESTIONS APPROPRIATELY. C/O NAUSEA AND PAIN/DISCOMFORT; MEDICATED PER EMAR. INDEPENDENT IN ROOM AND HALLWAYS. RECEIVED ONE TIME ORDER FOR PHENERGAN PO; R/T ZOFRAN NOT HELPING WITH NAUSEA. VSS/AFEBRILE. DID NOT APPEAR TO REST MUCH OVERNIGHT. BED REMAINED IN LOWEST POSITION. CALL LIGHT AND BELONGING WITHIN REACH. WCTM. REPORT TO ONCOMING RN.
[2018-12-11 05:11] LABS: Albumin, Blood 2.6 g/dL (3.4-5.0); Anion Gap 6 mmol/L (6-16); Blood Urea Nitrogen 35 mg/dL (8-24); Bun/Creatinine Ratio 11.2 (12.0-20.0); CO2, Blood 31 mmol/L (21-32); Calcium, Blood 8.2 mg/dL (8.5-10.1); Chloride, Blood 104 mmol/L (98-108); Creatinine, Blood 3.12 mg/dL (0.40-1.00); Glomerular Filtration Rate 17 (60-); Glucose, Blood 97 mg/dL (70-99); Magnesium, Blood 1.9 mg/dL (1.6-2.4); Phosphorus, Blood 4.5 mg/dL (2.5-4.9); Potassium, Blood 4.1 mmol/L (3.5-5.5); Sodium, Blood 141 mmol/L (136-145)
[2018-12-11 12:54] LABS: Vancomycin, Random 14.9 ug/mL
--- NOTE | 2018-12-11 15:46 | NUR ---
Patient is sitting up in bed and alert. Patient tells me that she has had a transfusion and dialysis and that she is exhausted. Patient is thankful for Dr. Ruiz and his work on her case but patient states that she still does not know what the plan is for her medical care. Patient is looking forward to a visit with her 6 year old daughter and her mother this evening. Because of patient tiredness I cut my visit short but I provide prayer for her before I leave. I will continue to remain available to patient and family.
--- NOTE | 2018-12-12 04:55 | NUR ---
SHIFT SUMMARY A/O, ABLE TO MAKE NEEDS KNOWN. COOPERATIVE WITH CARE. CALLS AND ANSWERS QUESTIONS APPROPRIATELY. C/O PAIN/NAUSEA; MEDICATED PER EMAR. UP INDEPENDENTLY IN ROOM AND HALLWAY. NEW IV PLACED TO R WRIST. VSS/AFEBRILE. NO ACUTE CHANGES NOTED OVERNIGHT. DID NOT APPEAR TO REST MUCH T/O SHIFT. BED REMAINS IN LOWEST POSITION. CALL LIGHT AND BELONGINGS WITHIN REACH. WCTM. REPORT TO ONCOMING RN.
[2018-12-12 06:26] LABS: Hematocrit 29.2 % (33.0-51.0); Hemoglobin 9.2 g/dL (11.5-16.0)
[2018-12-12 06:40] LABS: Albumin, Blood 2.8 g/dL (3.4-5.0); Anion Gap 4 mmol/L (6-16); Blood Urea Nitrogen 26 mg/dL (8-24); Bun/Creatinine Ratio 8.5 (12.0-20.0); CO2, Blood 34 mmol/L (21-32); Calcium, Blood 8.4 mg/dL (8.5-10.1); Chloride, Blood 103 mmol/L (98-108); Creatinine, Blood 3.06 mg/dL (0.40-1.00); Glomerular Filtration Rate 18 (60-); Glucose, Blood 114 mg/dL (70-99); Magnesium, Blood 1.9 mg/dL (1.6-2.4); Phosphorus, Blood 3.4 mg/dL (2.5-4.9); Potassium, Blood 3.9 mmol/L (3.5-5.5); Sodium, Blood 141 mmol/L (136-145)
--- NOTE | 2018-12-12 07:24 | NUR ---
SURGICAL CONSULT CONSULT SURGERY PER DR VILLALBA, D/C PERMACATH. DR BRISEIDA FLYNN ADJUNCT FACULTY TODAY. MESSAGE LEFT WITH ANSWERING SERVICE
[2018-12-12 12:09] LABS: Vancomycin, Random 14.7 ug/mL
--- NOTE | 2018-12-12 14:47 | NUR ---
Patient is lying in bed and alert. Patient immediately explains about her poor patient experience. I listen empathically and point her toward the patient advocate and I left a message with her as well. I will continue to be available to patient and family.
--- NOTE | 2018-12-13 02:04 | NUR ---
12/12/182019 PT SITTING UP IN BED. REPORTS PAIN ALL OVER AT 7/10. PT REPORTS THAT CURRENT PAIN MEDICATION IS NOT ADEQUATE ENOUGH FOR HER PAIN. WILL CALL DR AND F/U ON ANY NEW ORDERS. PT HAS SLIGHT REDNESS AND EDEMA AT HD CATH SITE IN R GROIN. PT REPORTS SLIGHT NAUSEA, NAUSEA MEDICATION GIVEN, WILL EVAL FOR EFFECT. NO OTHER APPARENT SIGNS OF DISTRESS. CALL LIGHT IS IN REACH.
--- NOTE | 2018-12-13 02:07 | NUR ---
0109 PT REQUESTED AND RECIEVED PAIN MEDICATION, WILL EVAL FOR EFFECT. NO OTHER APPARENT SIGNS OF DISTRESS. CALL LIGHT IS IN REACH.
--- NOTE | 2018-12-13 02:18 | NUR ---
PT LYING IN BED, EYES CLOSED, APPEARS TO BE RESTING. BREATHING IS EVEN, UNLABORED. NO APPARENT SIGNS OF DISTRESS. CALL LIGHT IS IN REACH.
--- NOTE | 2018-12-13 04:34 | NUR ---
PT LYING IN BED, EYES CLOSED, APPEARS TO BE RESTING. BREATHING IS EVEN, UNLABORED. NO APPARENT SIGNS OF DISTRESS. CALL LIGHT IS IN REACH.
[2018-12-13 05:14] LABS: BASOPHILS ABSOLUTE AUTO 0.05 K/mm3 (0.00-0.23); BASOPHILS PERCENT AUTO 1 % (0-2); EOSINOPHILS ABSOLUTE AUTO 0.58 K/mm3 (0.00-0.68); EOSINOPHILS PERCENT AUTO 10 % (0-6); Hematocrit 31.5 % (33.0-51.0); Hemoglobin 9.7 g/dL (11.5-16.0); Mean Corpuscular HGB 28.7 pg (26.0-34.0); Mean Corpuscular HGB Conc 30.8 g/dL (31.5-36.5); Mean Corpuscular Volume 93 fL (80-100); Mean Platelet Volume 10.3 fL (9.1-12.4); Platelet Count 165 K/mm3 (150-400); RDW Coefficient Variation 14.6 % (11.7-14.2); RDW Standard Deviation 50.3 fL (35.1-46.3); Red Blood Cell Count 3.38 M/mm3 (3.80-5.20); White Blood Cell Count 5.88 K/mm3 (4.00-11.30)
--- NOTE | 2018-12-13 05:17 | NUR ---
PT IS AAO X 4, ON RA. PT HAD SLIGHT NAUSEA AND GOT PHENERGAN X 1. PT REPORTS PAIN ALL OVER, SHE GOT DILAUDED PO X 1 AND ROXICODONE X 1. PT HAS A HD CATH IN HER R GROIN, THE PLAN IS TO REMOVE IT TODAY.
[2018-12-13 05:19] LABS: IMMATURE GRAN ABSOLUTE AUTO 0.02 K/mm3 (0.00-0.10); IMMATURE GRAN PERCENT AUTO 0 % (0-1); LYMPHOCYTES ABSOLUTE AUTO 2.32 K/mm3 (0.84-5.20); LYMPHOCYTES PERCENT AUTO 40 % (21-46); MONOCYTES ABSOLUTE AUTO 0.39 K/mm3 (0.16-1.47); MONOCYTES PERCENT AUTO 7 % (4-13); NEUTROPHILS ABSOLUTE AUTO 2.52 K/mm3 (1.96-9.15); NEUTROPHILS PERCENT AUTO 43 % (41-73)
[2018-12-13 05:34] LABS: Albumin, Blood 2.8 g/dL (3.4-5.0); Anion Gap 5 mmol/L (6-16); Blood Urea Nitrogen 22 mg/dL (8-24); Bun/Creatinine Ratio 8.2 (12.0-20.0); CO2, Blood 34 mmol/L (21-32); Calcium, Blood 8.7 mg/dL (8.5-10.1); Chloride, Blood 102 mmol/L (98-108); Creatinine, Blood 2.67 mg/dL (0.40-1.00); Glomerular Filtration Rate 21 (60-); Glucose, Blood 85 mg/dL (70-99); Magnesium, Blood 1.9 mg/dL (1.6-2.4); Phosphorus, Blood 2.9 mg/dL (2.5-4.9); Sodium, Blood 141 mmol/L (136-145)
--- NOTE | 2018-12-13 05:51 | NUR ---
PT LYING IN BED, EYES CLOSED. APPEARS TO BE RESTING. BREATHING IS EVEN, UNLABORED. NO APPARENT SIGNS OF DISTRESS. CALL LIGHT IS IN REACH. NO OTHER CHANGES THIS SHIFT.
[2018-12-13 13:07] LABS: Vancomycin, Random 9.8 ug/mL
--- NOTE | 2018-12-13 18:29 | NUR ---
SHIFT SUMMARY PT WENT TO DIALYSIS TODAY AND THE DR. FLYNN REMOVED R GROIN PERMCATH. DRESSING IN PLACE WITH NO BREAKTHROUGH BLEEDING NOTED. PT REPORTED SHE HAD STAYED LAYING DOWN FOR AT LEAST A HALF HOUR AFTER REMOVED. INDEPENDENT IN ROOM AND WALKING OUT TO SMOKE. REQUESTING PAIN MEDS MORE FREQUENTLY THAN IS ORDERED. PT CALLING DR. VILLALBA TO DISCUSS IT WITH HIM. REPORTS SHE HAD A BM SATURDAY OR SATURDAY AND IS GENERALLY VERY IRREGULAR. DRESSING CHANGED TO IV SITE AND NETTING APPLIED FOR PROTECTION. FOOD BEING BROUGHT IN BY FAMILY.
--- NOTE | 2018-12-13 22:35 | NUR ---
PREVIOUS IV INFILTRATED. NEW 20G IV PLACED TO R.FA BY MEETING SPECIALIST D/T DIFFICULT IV START AND DIALSIS PT. IV ABX RESTARTED AT THIS TIME.
[2018-12-14 04:50] LABS: Hematocrit 30.2 % (33.0-51.0); Hemoglobin 9.5 g/dL (11.5-16.0)
[2018-12-14 05:09] LABS: Albumin, Blood 2.8 g/dL (3.4-5.0); Anion Gap 5 mmol/L (6-16); Blood Urea Nitrogen 21 mg/dL (8-24); Bun/Creatinine Ratio 7.9 (12.0-20.0); CO2, Blood 31 mmol/L (21-32); Calcium, Blood 8.6 mg/dL (8.5-10.1); Chloride, Blood 101 mmol/L (98-108); Creatinine, Blood 2.67 mg/dL (0.40-1.00); Glomerular Filtration Rate 21 (60-); Glucose, Blood 110 mg/dL (70-99); Phosphorus, Blood 2.7 mg/dL (2.5-4.9); Potassium, Blood 3.7 mmol/L (3.5-5.5); Sodium, Blood 137 mmol/L (136-145)
--- NOTE | 2018-12-14 06:23 | NUR ---
SUMMARY: A/OX4, INDEPENDENT AND SPECIFIES NEEDS. PT GOES OUTSIDE TO SMOKE AND ALSO WALKS HALLS OFTEN. SHE HAD MIGRAINE JERRY THIS SHIFT AND RECIEVED FIORACET X2 DOSES FOR MODERATE RELIEF. XANAX WAS PROVIDED PER PT REQUEST AT BEDTIME FOR SLEEP AND DILAUDID X2 DOSES WAS GIVEN FOR TOLERABLE CONTROL OF CHRONIC BACK PAIN AND ACUTE R.LEG PAIN POST DIALYSIS CATH REMOVAL. SHE ALSO REQUIRED ZOFRAN THIS AM D/T NAUSEA CAUSED BY JERRY. PT SLEPT OTHERWISE AND USED BATHROOM AD MARITZA. NO ACUTE CHANGES, VSS/AFEBRILE. PT HOPEFUL TO GO HOME THIS AM, LABS PENDING. WCTM AND REPORT TO DAY RN.
[2018-12-14] MEDS ORDERED: Augmentin 875-1 EACH PO (11:36)
--- NOTE | 2018-12-14 12:45 | NUR ---
DISCHARGE INSTRUCTIONS COMPLETED AND DISCUSSED WITH PT EXPRESSING UNDERSTANDING. SCRIPT FAXED TO [facility]. HAD BEEN GOING OUT TO SMOKE THIS A.M. HOME MED FOUND IN DRAWER AFTER SHE LEFT AND WAS CALLED TO LET HER KNOW TO COME PICK IT UP. WALKED HERSELF TO EXIT WITH SON IN ATTENDANCE.
== END 2018-12-14 12:25 | disposition home or self-care (01) | DRG 314 ==
LOC: ER 18:50 → MEDS 20:28 → ENPENDDIS 12-14 09:47 → MEDS 12-14 12:25
PROVIDERS: Internal Medicine; Internal Medicine Nephrology; Pharmacist; Physician Assistant; ADMIT Internal Medicine
PROC: 30233N1 Transfusion of Nonautologous Red Blood Cells into Peripheral Vein, Percutaneous Approach (ICD-10-PCS; 2018-12-11)
PROC: 5A1D70Z Performance of Urinary Filtration, Intermittent, Less than 6 Hours Per Day (ICD-10-PCS; 2018-12-11)
PROC: 06PYX3Z Removal of Infusion Device from Lower Vein, External Approach (ICD-10-PCS; principal; 2018-12-13)
DX: T82.7XXA Infection and inflammatory reaction due to other cardiac and vascular devices, implants and grafts, initial encounter (principal); A41.81 Sepsis due to Enterococcus; D59.3 Hemolytic-uremic syndrome; N25.81 Secondary hyperparathyroidism of renal origin; N18.4 Chronic kidney disease, stage 4 (severe); F17.210 Nicotine dependence, cigarettes, uncomplicated; E88.09 Other disorders of plasma-protein metabolism, not elsewhere classified; Z99.2 Dependence on renal dialysis; D69.6 Thrombocytopenia, unspecified; D63.1 Anemia in chronic kidney disease; R51 Headache; I12.9 Hypertensive chronic kidney disease with stage 1 through stage 4 chronic kidney disease, or unspecified chronic kidney disease; B96.89 Other specified bacterial agents as the cause of diseases classified elsewhere
CPT/HCPCS: 36415; 36430; 71045; 71046; 74176; 80053; 80069; 80202; 81001; 82150; 82248; 83605; 83690; 83735; 84100; 85014; 85018; 85025; 85027; 85610; 86850; 86900; 86901; 86923; 87040; 87077; 87086; 87186; 93005; 93010; 93306; 96361; 96374; 96375; 99283-25; 99285-25; J0692; J0881; J1644; J1956; J2405; J2550; J3010; J3370; J7030; P9016

== ENCOUNTER → 2018-12-16 | Outpatient (CLI) | payer MEDICARE, OTHER ==
[~2018-12-16] MED LIST changes: +AMOCLA875 PO; +Augmentin 875-1 EACH PO; +Florastor250 MG PO; +GENTAMICIN IV; +LEVFLO500 IV
[2018-12-16 17:10] LABS: Albumin, Blood 3.4 g/dL (3.4-5.0); Anion Gap 9 mmol/L (6-16); Blood Urea Nitrogen 34 mg/dL (8-24); Bun/Creatinine Ratio 10.3 (12.0-20.0); CO2, Blood 28 mmol/L (21-32); Calcium, Blood 9.4 mg/dL (8.5-10.1); Chloride, Blood 102 mmol/L (98-108); Creatinine, Blood 3.31 mg/dL (0.40-1.00); Glomerular Filtration Rate 16 (60-); Glucose, Blood 109 mg/dL (70-99); Phosphorus, Blood 5.3 mg/dL (2.5-4.9); Potassium, Blood 4.3 mmol/L (3.5-5.5); Sodium, Blood 139 mmol/L (136-145)
== END | disposition home or self-care (01) ==
LOC: LAB 13:30 → LAB SHORT 13:30
PROVIDERS: Internal Medicine Nephrology
DX: N18.5 Chronic kidney disease, stage 5 (principal); D59.3 Hemolytic-uremic syndrome
CPT/HCPCS: 80069; 86162

== ENCOUNTER 2018-12-22 16:32 | Observation (INO) | payer MEDICARE, OTHER ==
[~2018-12-22] VITALS: Ht 182.9 cm; Wt 90.3 kg
[~2018-12-22 16:32] MED LIST changes: -AMOCLA875 PO; -Florastor250 MG PO; -GENTAMICIN IV; -LEVFLO500 IV
[2018-12-22 17:48] LABS: Appearance, Urine Clear (Clear); Bilirubin, Urine Neg (Neg); Blood, Urine 1+ (Neg); Color, Urine Yellow (P-Yellow); Glucose Qualitative, Urine Neg (Neg); Ketones, Urine Neg (Neg); Leukocyte Esterase, Urine Neg (Neg); Nitrite, Urine Neg (Neg); Protein, Urine 3+ (Neg); Specific Gravity, Urine 1.015 (1.003-1.022); Urobilinogen, Urine NORM (Normal)
[2018-12-22 17:54] LABS: BASOPHILS ABSOLUTE AUTO 0.08 K/mm3 (0.00-0.23); BASOPHILS PERCENT AUTO 1 % (0-2); EOSINOPHILS ABSOLUTE AUTO 0.49 K/mm3 (0.00-0.68); EOSINOPHILS PERCENT AUTO 5 % (0-6); Hematocrit 37.5 % (33.0-51.0); Hemoglobin 11.8 g/dL (11.5-16.0); IMMATURE GRAN ABSOLUTE AUTO 0.03 K/mm3 (0.00-0.10); IMMATURE GRAN PERCENT AUTO 0 % (0-1); LYMPHOCYTES ABSOLUTE AUTO 2.86 K/mm3 (0.84-5.20); LYMPHOCYTES PERCENT AUTO 29 % (21-46); MONOCYTES ABSOLUTE AUTO 0.52 K/mm3 (0.16-1.47); MONOCYTES PERCENT AUTO 5 % (4-13); Mean Corpuscular HGB 29.5 pg (26.0-34.0); Mean Corpuscular HGB Conc 31.5 g/dL (31.5-36.5); Mean Corpuscular Volume 94 fL (80-100); Mean Platelet Volume 9.7 fL (9.1-12.4); NEUTROPHILS ABSOLUTE AUTO 5.88 K/mm3 (1.96-9.15); NEUTROPHILS PERCENT AUTO 60 % (41-73); Platelet Count 389 K/mm3 (150-400); RDW Coefficient Variation 14.8 % (11.7-14.2); RDW Standard Deviation 50.8 fL (35.1-46.3); White Blood Cell Count 9.86 K/mm3 (4.00-11.30)
[2018-12-22 18:08] LABS: Source, Urine Clean Catch
[2018-12-22 18:10] LABS: White Blood Cells, Urine 0-2 /hpf (0-5)
[2018-12-22 18:11] LABS: Bacteria Few /hpf; Hyaline Casts 0-2 /lpf (0-2); Squamous Epithelial Cells Mod /hpf (Few)
[2018-12-22 21:00] LABS: Albumin, Blood 3.8 g/dL (3.4-5.0); Albumin/Globulin Ratio 0.9 (0.8-1.8); Bilirubin, Total 0.2 mg/dL (0.1-1.0); Bun/Creatinine Ratio 14.3 (12.0-20.0); Calcium, Blood 9.3 mg/dL (8.5-10.1); Creatinine, Blood 3.77 mg/dL (0.40-1.00); Globulin, Blood 4.1 g/dL (2.2-4.0); Potassium, Blood 4.2 mmol/L (3.5-5.5); Total Protein, Blood 7.9 g/dL (6.4-8.2)
[2018-12-22] MEDS ORDERED: OXYC10TA19 PO (21:30)
--- NOTE | 2018-12-23 05:03 | NUR ---
SHIFT SUMMARY- PT. ARRIVED FROM ED VIA W/C INTO ROOM. A&O, INDEP IN ROOM AND AMBULATES IN THE HALLWAY. DR. BURNHAM CONSULTED FOR PERMACATH PLACEMENT FOR HD TODAY. PT. CURRENTLY HAS NO ACCESS. PREVIOUS PORT REMOVED DUE TO INFECTION. PT. THIS AM C/O MIGRAINE AND NA. PRN MEDS GIVEN PER EMAR, NOTED GOOD RELIEF. RESTING COMFORTABLY IN BED, NO APPARENT DISTRESS NOTED. CALL LIGHT WITHIN REACH AND SIDE RAILS UP X2. WILL CONT TO MONITOR.
[2018-12-23 05:29] LABS: Hematocrit 36.9 % (33.0-51.0); Hemoglobin 11.4 g/dL (11.5-16.0); Mean Corpuscular HGB 29.2 pg (26.0-34.0); Mean Corpuscular HGB Conc 30.9 g/dL (31.5-36.5); Mean Corpuscular Volume 95 fL (80-100); Mean Platelet Volume 9.4 fL (9.1-12.4); Platelet Count 338 K/mm3 (150-400); RDW Coefficient Variation 14.8 % (11.7-14.2); RDW Standard Deviation 50.7 fL (35.1-46.3); White Blood Cell Count 8.53 K/mm3 (4.00-11.30)
[2018-12-23 06:31] LABS: Albumin, Blood 3.5 g/dL (3.4-5.0); Albumin/Globulin Ratio 0.9 (0.8-1.8); Bilirubin, Total 0.3 mg/dL (0.1-1.0); Bun/Creatinine Ratio 13.9 (12.0-20.0); Calcium, Blood 9.2 mg/dL (8.5-10.1); Creatinine, Blood 3.68 mg/dL (0.40-1.00); Globulin, Blood 4.1 g/dL (2.2-4.0); Magnesium, Blood 2.3 mg/dL (1.6-2.4); Phosphorus, Blood 6.5 mg/dL (2.5-4.9); Total Protein, Blood 7.6 g/dL (6.4-8.2)
--- NOTE | 2018-12-23 12:47 | NUR ---
PATIENT IS ALERT AND ORIENTED. SHE IS IN AND OUT OF THE ROOM TO SMOKE CIGARRETTES. PATIENT WAS ABLE TO SLEEP FOR A SHORT WHILE THIS MORNING. SHE IS INDEPENDENT IN HER ROOM.
--- NOTE | 2018-12-23 18:16 | NUR ---
PATIENT IS ALERT AND ORIENTED AND COOPERATIVE WITH CARE. PATIENT IS CURRENTLY IN THE QUARTZ MINER FOR PERMACATH PLACEMENT. PATIENT COMPLAINED OF PAIN "EVERYWHERE" AND A HADACHE ALONG WITH NAUSEA THIS MORNING. PATIENT IS INDEPENDENT AND AMBULATES OUTSIDE OFTEN. WILL CONTINUE TO MONITOR WHEN PATIENT RETURNS.
--- NOTE | 2018-12-23 18:38 | NUR ---
PATIENT TRANSFERRED TO ICU
--- NOTE | 2018-12-23 19:20 | NUR ---
TRANSFERRED FROM TR[facility] VEHICLE REPAIRER: PT HERE FROM [facility] WITH 2 RN'S AT BEDSIDE. PT MOVED FROM GURENY TO BED. EXCLAIMING THAT SHE IS IN A TREMENDOUS AMOUNT OF PAIN IN THE L CHEST AREA WHERE THE PERMACATH INSERTION IS. PERMACATH HAS GAUZE AND TAPE OVER IT. THERE IS SWELLING AND TENDERNESS ABOVE THE SITE. PT ORIENTED X4. LS CLEAR T/O WITH BIOX 96% ON 2L N/C. HEART SOUNDS S1 AND S2 AUSCULTATED WITH MONITOR SHOWING NSR WITH HR 88. SKIN PINK, WARM AND DRY. PPP BILAT AND STRONG. 20G IV S/L. ABD R/S WITH BTX4. VOIDS PER BSC WITH ASSIST.
--- NOTE | 2018-12-23 19:40 | NUR ---
SPOKE WITH DR. BURNHAM: SPOKE WITH DR. BURNHAM IN REGARDS TO NEEDING A CXR. HE SAID THAT IT WAS MARKED UNDER FLURO AND A CXR IS NOT NEEDED. IT WAS REPORTED FROM THE SAUSAGE TIER STAFF THAT THERE WAS A SMALL AIR EMBOLIS DURING THE PROCEDURE. ASKED DR. BURNHAM IF THAT WAS CORRECT, HE SAID YES, BUT THAT IT HAD DISSIPATED AND THERE IS NO RESIDUAL EFFECTS. ALSO ASKED IF HE WANTS ME HOLD THE ELIQUIS, HE SAID NO, HOLD IT FOR TONIGHT, AND START IT IN THE AM.
--- NOTE | 2018-12-23 22:23 | NUR ---
BELONGINGS: IN GOING THRU PT'S BELONGING, FOUND A MARIJUANA JOINT, A PIPE, A PILL COORDINATE MEASURING MACHINE TECHNICIAN WITH A STRAW AND NEEDLES WITH A SPOON. WILL LOCK THESE BELONGINGS UP.
[2018-12-24 04:14] LABS: Hematocrit 34.3 % (33.0-51.0); Hemoglobin 10.9 g/dL (11.5-16.0)
[2018-12-24 04:27] LABS: Albumin, Blood 3.3 g/dL (3.4-5.0); Anion Gap 5 mmol/L (6-16); Blood Urea Nitrogen 50 mg/dL (8-24); Bun/Creatinine Ratio 14.5 (12.0-20.0); CO2, Blood 32 mmol/L (21-32); Chloride, Blood 101 mmol/L (98-108); Creatinine, Blood 3.44 mg/dL (0.40-1.00); Glomerular Filtration Rate 15 (60-); Glucose, Blood 97 mg/dL (70-99); Magnesium, Blood 2.2 mg/dL (1.6-2.4); Phosphorus, Blood 5.5 mg/dL (2.5-4.9); Potassium, Blood 3.9 mmol/L (3.5-5.5); Sodium, Blood 138 mmol/L (136-145)
--- NOTE | 2018-12-24 07:14 | NUR ---
SHIFT SUMMARY: PT HAS C/O PAIN OVER L CATH SITE T/O THE NIGHT REGARDLESS OF HER SLEEPING VERY HARD AND DIFFICULT TO AROUSE AT TIMES. REPORT TO ONCOMING SHIFT.
--- NOTE | 2018-12-24 08:04 | NUR ---
NURSING ICU DAYSHIFT: Assumed care of pt at approx 0700. Arrouses w/physical stimuli or close/loud verbal stimuli, appears drowsy and falls asleep during conversation. Oriented, fairly cooperative w/care. C/O 8-02/24 pain in LCW r/t recent permacath placement. Cardiac monitoring in place, NSR, no c/o CP/pressure, BP stable, no noted edema. L/S cta t/o, O2 sat upper 90's on 2L NC, desturation noted during periods of rest, no noted cough, denies dyspnea. Abd SNT, BT+, voiding w/o difficulty per pt. PIV x1, s/l. Permacath present to [facility], dressing intact. No s/s of acute distress at this time. Pt requests pain meds for management of discomfort. Plan for HD at approx 0900. Seen by cooler servicer, awaiting rounding from PMD. Call light in reach, cont to monitor for any changes.
[2018-12-24] MEDS ORDERED: AMOCLA875 PO (11:20)
--- NOTE | 2018-12-24 11:24 | NUR ---
NURSING PCU DISCHARGE SUMMARY: Pt requested to go AMA this a.m. d/t inability to have personal bag at bedside. Still agitated after speaking w/alternative energy technician over the phone in room and continued to refuse HD. Spoke to pt outside room d/t parents being at bedside, educated on process for high risk items found in belongings including high risk behavior paraphernalia, pt verbalized understanding and agreed to HD. PMD notified of pt's new request for discharge post HD. Discharge home d/o received. Rx called to [facility] per pt request. No s/s of acute distress at time of xfer to HD, escorted from unit from . Plan to monitor at pt's return until discharge is complete.
--- NOTE | 2018-12-24 11:34 | NUR ---
NURSING ICU DISCHARGE SUMMARY: Pt requested to go AMA this a.m. d/t inability to have personal bag at bedside. Still agitated after speaking w/aircraft cylinder mechanic over the phone in room and continued to refuse HD. Spoke to pt outside room d/t parents being at bedside, educated on process for high risk items found in belongings including high risk behavior paraphernalia, pt verbalized understanding and agreed to HD. PMD notified of pt's new request for discharge post HD. Discharge home d/o received. Pt to be instructed on f/u appt's and completion of previously prescribed antibiotics. No s/s of acute distress at time of xfer to HD, escorted from unit from . Plan to monitor at pt's return until discharge is complete.
--- NOTE | 2018-12-24 12:33 | NUR ---
DISCHARGE DISCHARGE INSTRUCTIONS PROVIDED TO PT. PT MED WITH PO DILAUDID FOR CHEST PAIN AT INSERTION SITE. INSTRUCTED NOT TO DRIVE OR OPERATE ANY HEAVY EQUIPMENT. PT STATES MOTHER IS PICKING HER UP. PIV DC'D. ALL BELONGINGS RETURNED TO PT.
== END 2018-12-24 12:35 | disposition home or self-care (01) ==
LOC: ER 16:32 → MEDS 16:33 → ICUE 12-23 19:18
PROVIDERS: Emergency Medicine; Internal Medicine Nephrology; Physician Assistant; ADMIT Internal Medicine
DX: N17.9 Acute kidney failure, unspecified (principal); I12.0 Hypertensive chronic kidney disease with stage 5 chronic kidney disease or end stage renal disease; N18.6 End stage renal disease; D63.1 Anemia in chronic kidney disease; E86.9 Volume depletion, unspecified; D59.3 Hemolytic-uremic syndrome; G89.29 Other chronic pain; E83.39 Other disorders of phosphorus metabolism; E86.1 Hypovolemia; Z86.73 Personal history of transient ischemic attack (TIA), and cerebral infarction without residual deficits; Z98.890 Other specified postprocedural states; Z87.19 Personal history of other diseases of the digestive system; Z87.442 Personal history of urinary calculi
CPT/HCPCS: 36415; 36558; 76937; 80053; 80069; 81001; 83735; 84100; 85014; 85018; 85025; 85027; 96374; 96375; 96376; 99152; 99153; 99285; C1750; C1769; C1887; C1894; G0257; G0378; J1644; J2250; J2405; J3010; J7040; Q9967

== ENCOUNTER → 2018-12-25 | Outpatient (CLI) | payer MEDICARE, OTHER ==
[~2018-12-25] MED LIST changes: +AMOCLA875 PO; +Florastor250 MG PO; +GENTAMICIN IV; +LEVFLO500 IV
[2018-12-25 19:33] LABS: Albumin, Blood 3.2 g/dL (3.4-5.0); Albumin/Globulin Ratio 0.9 (0.8-1.8); Bilirubin, Total 0.2 mg/dL (0.1-1.0); Bun/Creatinine Ratio 10.1 (12.0-20.0); Calcium, Blood 8.9 mg/dL (8.5-10.1); Creatinine, Blood 2.68 mg/dL (0.40-1.00); Globulin, Blood 3.5 g/dL (2.2-4.0); Potassium, Blood 4.2 mmol/L (3.5-5.5); Total Protein, Blood 6.7 g/dL (6.4-8.2)
== END | disposition home or self-care (01) ==
LOC: LAB 13:38 → LAB SHORT 13:38
PROVIDERS: Internal Medicine Hematology & Oncology
DX: D59.3 Hemolytic-uremic syndrome (principal)
CPT/HCPCS: 80053; 86162

== ENCOUNTER 2019-01-02 18:43 | Inpatient (IN) | payer MEDICARE, OTHER ==
[~2019-01-02] VITALS: Ht 182.9 cm; Wt 94.8 kg
[~2019-01-02 18:43] MED LIST changes: -Florastor250 MG PO; -GENTAMICIN IV; -LEVFLO500 IV
[2019-01-02 19:28] LABS: BASOPHILS ABSOLUTE AUTO 0.05 K/mm3 (0.00-0.23); BASOPHILS PERCENT AUTO 1 % (0-2); EOSINOPHILS ABSOLUTE AUTO 0.36 K/mm3 (0.00-0.68); EOSINOPHILS PERCENT AUTO 4 % (0-6); Hemoglobin 11.1 g/dL (11.5-16.0); IMMATURE GRAN ABSOLUTE AUTO 0.08 K/mm3 (0.00-0.10); IMMATURE GRAN PERCENT AUTO 1 % (0-1); LYMPHOCYTES ABSOLUTE AUTO 0.87 K/mm3 (0.84-5.20); LYMPHOCYTES PERCENT AUTO 9 % (21-46); MONOCYTES ABSOLUTE AUTO 0.55 K/mm3 (0.16-1.47); MONOCYTES PERCENT AUTO 6 % (4-13); Mean Corpuscular HGB 28.5 pg (26.0-34.0); Mean Corpuscular HGB Conc 31.7 g/dL (31.5-36.5); Mean Platelet Volume 11.6 fL (9.1-12.4); NEUTROPHILS ABSOLUTE AUTO 7.91 K/mm3 (1.96-9.15); NEUTROPHILS PERCENT AUTO 81 % (41-73); RDW Coefficient Variation 14.9 % (11.7-14.2); RDW Standard Deviation 49.5 fL (35.1-46.3); White Blood Cell Count 9.82 K/mm3 (4.00-11.30)
[2019-01-02 19:32] LABS: Mean Corpuscular Volume 90 fL (80-100); Platelet Count 102 K/mm3 (150-400)
[2019-01-02 19:41] LABS: International Normalized Ratio 1.06; Prothrombin Time Results 11.2 Sec (9.7-11.5)
[2019-01-02 19:57] LABS: Albumin/Globulin Ratio 0.7 (0.8-1.8); Bilirubin, Total 0.6 mg/dL (0.1-1.0); Bun/Creatinine Ratio 13.5 (12.0-20.0); Calcium, Blood 8.9 mg/dL (8.5-10.1); Creatinine, Blood 3.18 mg/dL (0.40-1.00); Globulin, Blood 4.1 g/dL (2.2-4.0); Potassium, Blood 3.4 mmol/L (3.5-5.5); Total Protein, Blood 7.1 g/dL (6.4-8.2)
[2019-01-02 20:09] LABS: Source, Urine Catheter
[2019-01-02 20:13] LABS: Bilirubin, Urine Neg (Neg); Blood, Urine 1+ (Neg); Glucose Qualitative, Urine Neg (Neg); Ketones, Urine Neg (Neg); Leukocyte Esterase, Urine 1+ (Neg); Nitrite, Urine Neg (Neg); Protein, Urine 3+ (Neg); Specific Gravity, Urine 1.015 (1.003-1.022); Urobilinogen, Urine NORM (Normal)
[2019-01-02 20:15] LABS: Appearance, Urine Clear (Clear); Color, Urine Yellow (P-Yellow)
[2019-01-02 20:20] LABS: Bacteria Mod /hpf; Mucus Light (0-Heavy); Squamous Epithelial Cells Few /hpf (Few); White Blood Cells, Urine 0-2 /hpf (0-5)
--- NOTE | 2019-01-02 22:45 | NUR ---
Transfer report from [facility] on PT being admitted with Sepsis had blood culture drawn from dialysis port lt chest wall that was positive for gram neg rods. 43 year old PT has end stage renal disease on dialysis PT of DR Pandya. Elevated lactic acid 2.1 in ED. Antibotics running per report. Await admission. Recent discharge from [facility] where per records lt chest wall dialysis cath was placed 12/23/18 by interventional radiology.
--- NOTE | 2019-01-03 00:33 | NUR ---
PATIENT ADMITTED VIA ER TO MED FLOOR WITH S/S OF SEPSIS. NEPHROLOGY CONSULT- DR VILLALBA. CULTURES ORDERED TO MARIE OBTAINED FROM DIALYSIS CATHETER. AFTER PREP, SAMPLE OBTAINED FROM ARTERIAL PORT WITH NO WASTE. PORT THEN FLUSHED WITH NS AND PACKED WITH COAGULENT PER STANDARD PRACTICE. CVC DRESSING RENEWED AFTER AREA CARFULLY CLEANSED.
[2019-01-03 05:12] LABS: Hematocrit 30.6 % (33.0-51.0); Hemoglobin 9.5 g/dL (11.5-16.0); Mean Corpuscular HGB 28.3 pg (26.0-34.0); Mean Corpuscular Volume 91 fL (80-100); Mean Platelet Volume 11.2 fL (9.1-12.4); Platelet Count 100 K/mm3 (150-400); RDW Coefficient Variation 15.1 % (11.7-14.2); RDW Standard Deviation 50.7 fL (35.1-46.3); Red Blood Cell Count 3.36 M/mm3 (3.80-5.20); White Blood Cell Count 14.88 K/mm3 (4.00-11.30)
[2019-01-03 05:33] LABS: Albumin, Blood 2.7 g/dL (3.4-5.0); Albumin/Globulin Ratio 0.7 (0.8-1.8); Bilirubin, Total 0.4 mg/dL (0.1-1.0); Calcium, Blood 8.2 mg/dL (8.5-10.1); Creatinine, Blood 3.09 mg/dL (0.40-1.00); Globulin, Blood 3.8 g/dL (2.2-4.0); Magnesium, Blood 1.7 mg/dL (1.6-2.4); Phosphorus, Blood 3.1 mg/dL (2.5-4.9); Potassium, Blood 3.7 mmol/L (3.5-5.5); Total Protein, Blood 6.5 g/dL (6.4-8.2)
[2019-01-03 06:08] LABS: Adenovirus Not Detected (NOT DETECT); Bordetella pertussis Not Detected (NOT DETECT); Chlamydophila pneumoniae Not Detected (NOT DETECT); Coronavirus 229E Not Detected (NOT DETECT); Coronavirus HKU1 Not Detected (NOT DETECT); Coronavirus NL63 Not Detected (NOT DETECT); Coronavirus OC43 Not Detected (NOT DETECT); Human Metapneumovirus Not Detected (NOT DETECT); Human Rhinovirus/Enterovirus Not Detected (NOT DETECT); Influenza A Not Detected (NOT DETECT); Influenza A/2009-H1 Not Detected (NOT DETECT); Influenza A/H1 Not Detected (NOT DETECT); Influenza A/H3 Not Detected (NOT DETECT); Influenza B Not Detected (NOT DETECT); Mycoplasma pneumoniae Not Detected (NOT DETECT); Parainfluenza Virus 1 Not Detected (NOT DETECT); Parainfluenza Virus 2 Not Detected (NOT DETECT); Parainfluenza Virus 3 Not Detected (NOT DETECT); Parainfluenza Virus 4 Not Detected (NOT DETECT); Respiratory Syncytial Virus Not Detected (NOT DETECT)
--- NOTE | 2019-01-03 06:38 | NUR ---
43 YEAR OLD FEMALE WITH END STAGE RENAL DISEASE ADMITTED WITH SEPSIS WITH 2.1 LACTIC ACID IN ED POSITIVE BLOOD CULTURE DRAW OUTPT FROM LT CHEST VASCATH AT DIALYSIS WHEN PT HAD RIGORS CHILL NAUSEA AND ANOREXIA. ANTIBOTICS AND FLUIDS GIVEN. MEDICATED FOR NAUSEA AND CHRONIC HEADACHE WITH HELPFUL EFFECT. ON TELE WITH NS VSS.
[2019-01-03 10:43] LABS: Creatinine, Blood 3.04 mg/dL (0.40-1.00)
--- NOTE | 2019-01-03 12:46 | NUR ---
LIMITED ECHOCRADIOGRAM COMPLETE
--- NOTE | 2019-01-03 17:34 | NUR ---
PT AOX4 AND COOPERATIVE OF CARE. PT IS INDEPENDENT AND GETS UP AND GOES FOR A WALK THROUGHOUT THE DAY. PT CALLS APPROPRIATELY AND IS PLEASANT TO CARE FOR. NO DISTRESS NOTED. WILL CONTINUE TO MONITOR.
--- NOTE | 2019-01-03 22:32 | NUR ---
PATIENT OUT OF ROOM FOR IMAGING X TWO. IMAGING REPORTS WILL TRANSPORT PATIENT AFTER 07:30 APPROX 01/04/19.
--- NOTE | 2019-01-03 22:35 | NUR ---
CONSULT FOR DR DAMION PALMER; LATANYA, WILL HAVE TO BE CALLED IN AM. NO ANSWERING SERVICE AVAILABLE FOR NOC SHIFT. WILL PASS ON TO DAY RN.
--- NOTE | 2019-01-03 22:54 | NUR ---
PATIENT REMINDED NOT TO LEAVE ROOM WITH IV FLUIDS INFUSING. PATIENT OUT OF ROOM WITH IV FLUIDS INFUSING. CHARGE NURSE AWARE PATIENT HAS LEFT A FEW TIMES WITH FLUIDS INFUSING.
--- NOTE | 2019-01-03 22:57 | NUR ---
Pt. independently voids and writes output on white board. Pt. outside to smoke everytime I check on her.
--- NOTE | 2019-01-04 00:02 | NUR ---
PATIENT NOW GOING OUTSIDE W/O IV POLE AND HAVING FLUIDS UNHOOKED.
--- NOTE | 2019-01-04 03:33 | NUR ---
SHIFT SUMMARY PATIENT HAD NO ACUTE CHANGES OBSERVED. AXO X4 AND INDEPENDENT GOING OUTSIDE. IMAGING REPORTS PATIENT NOT IN ROOM X TWO AND WILL RETRY FOR CT SCAN IN AM. PIV REMAINS INTACT. NS INFUSING AT 75mL. PATIENT OUT OF ROOM X SIX PLUS. FLUIDS STOPPED WHEN PATIENT LEFT ROOM. ALTERNATING PO DILAUDID AND OXYCODONE 10 MG PER EMAR FOR RIGHT SHOULDER PAIN. SENIOR EDITOR REPORTS NSR 76. VSS/AFEBRILE. NO ANSWERING SERVICE FOR PROVIDER CONSULT, DR PALMER FOR NOC SHIFT. WILL NOTIFY DAY RN TO CALL DURING BUSINESS HOURS. CALL LIGHT IN REACH. BED IN LOWEST POSITION. WILL CONTINUE TO MONITOR UNTIL DAY SHIFT NURSE ASSUMES CARE.
[2019-01-04 04:22] LABS: Hematocrit 33.4 % (33.0-51.0); Hemoglobin 10.1 g/dL (11.5-16.0)
[2019-01-04 04:43] LABS: Albumin, Blood 2.8 g/dL (3.4-5.0); Anion Gap 9 mmol/L (6-16); Blood Urea Nitrogen 31 mg/dL (8-24); Bun/Creatinine Ratio 9.6 (12.0-20.0); CO2, Blood 29 mmol/L (21-32); Calcium, Blood 8.8 mg/dL (8.5-10.1); Chloride, Blood 103 mmol/L (98-108); Creatinine, Blood 3.22 mg/dL (0.40-1.00); Glomerular Filtration Rate 17 (60-); Glucose, Blood 125 mg/dL (70-99); Magnesium, Blood 1.5 mg/dL (1.6-2.4); Potassium, Blood 3.6 mmol/L (3.5-5.5); Sodium, Blood 141 mmol/L (136-145)
--- NOTE | 2019-01-04 18:21 | NUR ---
PT AOX4 AND COOPERATIVE OF CARE. PT INDEPENDENT IN ROOM AND WALKS FREQUENTLY. TREATED FOR R LEG PAIN AND HEADACHE PER EMAR. PT HAD R UPPER POWERGLIDE DONE TODAY AND IT IS WORKING WELL AT THIS TIME. PT DOES REQUEST TO HAVE FLUID ON HOLD FREQUENTLY TO GO WALKING. CALLS APPROPRIATELY, WILL CONTINUE TO MONITOR.
--- NOTE | 2019-01-05 03:23 | NUR ---
SHIFT SUMMARY PATIENT HAD NO ACUTE CHANGES OBSERVED THIS SHIFT. AXOX 4 AND INDEPENDENT WALKING HALLS/OUTSIDE. POWERGLIDE KARY WITH NS INFUSING AT 75 mL/HR. IV ABX INFUSED. PO DILAUDID AND OXYCODONE 10 MG GIVEN FOR R LEG PAIN. WALKS FREQUENTLY T/O SHIFT. FLUIDS STOPPED FOR WALKS. XANAX GIVEN X ONE FOR ANXIETY. COOPERATIVE WITH CARE. CALL LIGHT IN REACH. BED IN LOWEST POSITION. WILL CONTINUE TO MONITOR UNTIL DAY SHIFT NURSE ASSUMES CARE.
[2019-01-05 05:50] LABS: Hematocrit 33.4 % (33.0-51.0); Hemoglobin 10.5 g/dL (11.5-16.0); Mean Corpuscular HGB 28.5 pg (26.0-34.0); Mean Corpuscular HGB Conc 31.4 g/dL (31.5-36.5); Mean Corpuscular Volume 91 fL (80-100); Mean Platelet Volume 11.4 fL (9.1-12.4); Platelet Count 190 K/mm3 (150-400); RDW Coefficient Variation 15.2 % (11.7-14.2); RDW Standard Deviation 50.6 fL (35.1-46.3); Red Blood Cell Count 3.69 M/mm3 (3.80-5.20); White Blood Cell Count 9.72 K/mm3 (4.00-11.30)
[2019-01-05 06:03] LABS: Albumin, Blood 2.8 g/dL (3.4-5.0); Anion Gap 7 mmol/L (6-16); Blood Urea Nitrogen 29 mg/dL (8-24); Bun/Creatinine Ratio 9.5 (12.0-20.0); CO2, Blood 32 mmol/L (21-32); Calcium, Blood 9.1 mg/dL (8.5-10.1); Chloride, Blood 102 mmol/L (98-108); Creatinine, Blood 3.04 mg/dL (0.40-1.00); Glomerular Filtration Rate 18 (60-); Glucose, Blood 88 mg/dL (70-99); Magnesium, Blood 1.8 mg/dL (1.6-2.4); Phosphorus, Blood 3.5 mg/dL (2.5-4.9); Potassium, Blood 3.8 mmol/L (3.5-5.5); Sodium, Blood 141 mmol/L (136-145)
[2019-01-05 06:10] LABS: BAND PERCENT MAN 1 % (0-8); BASOPHILS ABSOLUTE MAN 0.09 K/mm3 (0.00-0.23); BASOPHILS PERCENT MAN 1 % (0-2); EOSINOPHILS ABSOLUTE MAN 0.48 K/mm3 (0.00-0.68); EOSINOPHILS PERCENT MAN 5 % (0-6); LYMPHOCYTES ABSOLUTE MAN 3.59 K/mm3 (0.84-5.20); LYMPHOCYTES PERCENT MAN 37 % (21-46); MONOCYTES ABSOLUTE MAN 0.48 K/mm3 (0.16-1.47); MONOCYTES PERCENT MAN 5 % (4-13); NEUTROPHILS ABSOLUTE MAN 5.05 K/mm3 (1.96-9.15); SEG NEUTROPHILS PERCENT MAN 51 % (41-73); TOTAL CELLS COUNTED 100
--- NOTE | 2019-01-05 14:34 | NUR ---
Patient is lying in the guest bed and alert. Patient tells me that she is not sure what is happening with her care plan. Patient is wondering why she is still in the hospital. Patient talks about the important things she has missed because of her disease and her fear concerning her disease progression. I listen empathically and provide a calming presence and prayer. Patient voices appreciation for my visit. I will continue to remain available to patient and family.
--- NOTE | 2019-01-05 19:10 | NUR ---
SHIFT SUMMARY MARJORIE WAS PAINFUL TODAY IN HER LEG AND BACK, GOT ALTERNATING DILAUDID PO AND OXY. INDEP IN ROOM, FRIENDS VISITED. STILL AWITING ID CONSULT WITH SPENCER. LEFT ANOTHER MESSAGE AT 11AM THIS MORNING ON HIS CONSULT LINE. MIVF RUNNING. TOOK MEDS PRESCRIBED. CALL LIGHT IN REACH, [facility]
[2019-01-06 04:42] LABS: Hematocrit 33.9 % (33.0-51.0); Hemoglobin 10.5 g/dL (11.5-16.0)
[2019-01-06 04:57] LABS: Albumin, Blood 2.8 g/dL (3.4-5.0); Anion Gap 7 mmol/L (6-16); Blood Urea Nitrogen 29 mg/dL (8-24); Bun/Creatinine Ratio 9.1 (12.0-20.0); CO2, Blood 32 mmol/L (21-32); Calcium, Blood 8.9 mg/dL (8.5-10.1); Chloride, Blood 103 mmol/L (98-108); Creatinine, Blood 3.18 mg/dL (0.40-1.00); Glomerular Filtration Rate 17 (60-); Glucose, Blood 102 mg/dL (70-99); Magnesium, Blood 1.8 mg/dL (1.6-2.4); Phosphorus, Blood 3.7 mg/dL (2.5-4.9); Potassium, Blood 3.7 mmol/L (3.5-5.5); Sodium, Blood 142 mmol/L (136-145)
--- NOTE | 2019-01-06 06:32 | NUR ---
SHIFT SUMMARY: MARJORIE IS A 43 Y/O FEMALE ADMITTED TO THE FLOOR WITH SEPSIS OF THE DIALYSIS CATH. SHE HAD A MIGRAINE AT THE BEGINNING OF THE SHIFT. AND REQUESTED THAT MD BE CALLED REGARDING HER PAIN MEDS. SHE ASKED IF HER OXYCODONE COULD BE DC'D, INCREASE HER DILAUDID TO 4 MG EVERY 4 HOURS. INFORMED MD OF THE PATIENT REQUEST. HE DC'D THE OXYCODONE. BUT ONLY GAVE ONE EXTRA DOSE OF DILAUDID ONLY. INFORMED THE PATIENT, SHE TOOK THE EXTRA DOSE AND WENT TO SLEEP. SHE SLEPT THROUGHOUT THE NIGHT UNTIL EARLY THIS AM WHERE SHE GOT A SECOND DOSE OF HER DILAUDID AND WENT BACK TO SLEEP. SHE HAS NOT COMPLAINED OF ANYTHING ELESE OR HAD ANY ACUTE CHANGES. WILL REPORT TO DAY SHIFT RN.
--- NOTE | 2019-01-06 19:00 | NUR ---
PT. BACK TO ROOM AFTER GOING OUT AFTER DINNER TO SMOKE. HAS BEEN OUTSIDE ABOUT 4 TIMES TODAY. EGGCRATE GIVEN TO PT. AND SHE IS GOING TO TAKE A SHOWER. NO NOTEABLE CHANGES THIS SHIFT. DR. PALMER STARTED PT. ON IV ANTIBIOTICS PLACED IN HER DIALYSIS CATH. NO OTHER NOTEABLE CHANGES THIS SHIFT.
--- NOTE | 2019-01-07 03:36 | NUR ---
ASSUMED CARE OF PATIENT AFTER RECEIVEING REPORT FROM UNIQUE COSTA RN. ROUNDED ON PATIENT WHO WAS IN HER ROOM LAYING DOWN. PATIENT STATED HER HEADACHE HAD LESSENED, BUT HAD STILL NOT GONE AWAY. ASKED IF THERE WAS SOMETHING WE COULD DO TO MAKE HER MORE COMFORTABLE ( SHE WAS NOT DUE FOR ANY FURTHER PAIN MEDICATION), SHE SAID NO, THAT SHE WOULD BE OK. TOLD HER i WOULD CHECK BACK WITH HER IN A WHILE TO SEE HOW SHE WAS DOING.
--- NOTE | 2019-01-07 03:43 | NUR ---
SHIFT SUMMARY: 43 YEAR OLD FEMALE. HAS BEEN INDEPENDENT IN HER ROOM. SHE HAS COMPLAINED OF PAIN X2 SO FAR THIS SHIFT. DILAUDID WAS GIVEN ALONG WITH HEATING PAD FOR HER SHOULDER. SHE HAS NEEDED ZOFRAN AND PHENERGAN X1 FOR NAUSEA AND VOMITING. EMESIS WAS 400CC. MEDS RESOLVED HER NAUSEA. SHE STARTED TO HAVE A MIGRAINE WELL, FORECET WAS GIVEN AND RELEIVED SOME OF HER PAIN, SHE HAS RESTED IN HER ROOM AND HAVE BEEN OUT TO SMOKE ON SEVERAL OCCATIONS. DRESSING CHANGED ON HER POWERGLIDE. NO OTHER CHANGES TO NOTE. CARE WILL TRANSFERRED TO [facility].
[2019-01-07 06:20] LABS: Hematocrit 33.3 % (33.0-51.0); Hemoglobin 10.4 g/dL (11.5-16.0)
[2019-01-07 06:39] LABS: Albumin, Blood 2.9 g/dL (3.4-5.0); Anion Gap 5 mmol/L (6-16); Blood Urea Nitrogen 32 mg/dL (8-24); CO2, Blood 35 mmol/L (21-32); Calcium, Blood 9.1 mg/dL (8.5-10.1); Chloride, Blood 97 mmol/L (98-108); Creatinine, Blood 3.55 mg/dL (0.40-1.00); Glomerular Filtration Rate 15 (60-); Glucose, Blood 112 mg/dL (70-99); Magnesium, Blood 1.8 mg/dL (1.6-2.4); Phosphorus, Blood 4.3 mg/dL (2.5-4.9); Potassium, Blood 3.7 mmol/L (3.5-5.5); Sodium, Blood 137 mmol/L (136-145)
--- NOTE | 2019-01-07 10:58 | NUR ---
DIALYSIS PT WANTED OFF BECAUSE SHE HAD TO URINATE. PT DIDNT WANT BACK ON TX. RAN 1HOUR AND 31 MIN.
[2019-01-07] MEDS ORDERED: ALUM320SU PO (14:04)
[2019-01-07] MEDS ORDERED: GENTAMICIN IV (14:08)
[2019-01-07] MEDS ORDERED: LEVFLO500 IV (14:09)
[2019-01-07] MEDS ORDERED: Florastor250 MG PO (14:16)
--- NOTE | 2019-01-07 14:26 | NUR ---
Patient is sitting on couch in room and a blood draw is being attempted. The attempt is unsuccessful and patient pulls arm back and states that she is done. Patient also shares other frustrations about her hospital experience and states that she is going down to admitting to get a wheel chair to help her get her possessions to the car. I walk with patient and help provide some anxiety containment and a calming presence. Patient decides to go outside for a smoke. I accompany her and I listen empathically. I walk patient back to her room with the wheel chair. Patient shows signs of some reduced stress. I will continue to remain available to patient and family.
--- NOTE | 2019-01-07 16:03 | NUR ---
DISCHARGE AT 1530 PATIENT DISCHARGED HOME. R UPPER ARM POWER GLIDE IV LINE LEFT IN, DRESSING WAS CHANGED TODAY. PATIENT C/O PAIN IN HEAD AND NECK THIS MORNING. DURING DIALYSIS SHE C/O PAIN IN UPPER ABDOMEN, CRAMPING/SCRAPING PAIN, STATED IT WAS NOT HEARTBURN LIKE PAIN. DILAUDID GIVEN Q6 WITH SOME RELIEF. PHENERGAN GIVEN FOR NAUSEA. BLOOD CULTURES DRAWN TODAY, BOTH FROM POWER GLIDE, 45 MIN/1 HR APART. DISCHARGE PACKET GIVEN TO PATIENT, SHE SIGNED DC FORM.
== END 2019-01-07 15:30 | disposition home or self-care (01) | DRG 919 ==
LOC: ER 18:43 → MEDS 18:44
PROVIDERS: Internal Medicine; Internal Medicine Nephrology; Physician Assistant; ADMIT Internal Medicine
PROC: 5A1D70Z Performance of Urinary Filtration, Intermittent, Less than 6 Hours Per Day (ICD-10-PCS; principal; 2019-01-03)
DX: T85.71XA Infection and inflammatory reaction due to peritoneal dialysis catheter, initial encounter (principal); N18.6 End stage renal disease; D59.3 Hemolytic-uremic syndrome; A41.59 Other Gram-negative sepsis; N17.9 Acute kidney failure, unspecified; Z99.2 Dependence on renal dialysis; K52.9 Noninfective gastroenteritis and colitis, unspecified; D63.1 Anemia in chronic kidney disease; Z86.73 Personal history of transient ischemic attack (TIA), and cerebral infarction without residual deficits; F17.210 Nicotine dependence, cigarettes, uncomplicated; E87.6 Hypokalemia; G43.909 Migraine, unspecified, not intractable, without status migrainosus; Z86.718 Personal history of other venous thrombosis and embolism; E86.9 Volume depletion, unspecified; E88.09 Other disorders of plasma-protein metabolism, not elsewhere classified
CPT/HCPCS: 0099U; 36415; 71046; 74176; 80053; 80069; 81001; 82565; 83605; 83735; 84100; 85014; 85018; 85025; 85027; 85610; 85730; 87040; 87077; 87086; 87186; 93005; 93010; 93308; 93321; 96361; 96365; 96375; 99284-25; A9270; C1751; J0744; J0881; J1580; J1644; J1650; J1956; J2405; J2543; J2550; J3475; J7030

== ENCOUNTER 2019-01-08 14:00 | Day surgery (SDC) | payer MEDICARE, OTHER | END 2019-01-08 23:59 | disposition home or self-care (01) | LOC: ATC 14:00 | DX: R78.81 Bacteremia (principal); I12.9 Hypertensive chronic kidney disease with stage 1 through stage 4 chronic kidney disease, or unspecified chronic kidney disease; N18.4 Chronic kidney disease, stage 4 (severe); G89.4 Chronic pain syndrome; Z88.5 Allergy status to narcotic agent; Z88.6 Allergy status to analgesic agent | CPT/HCPCS: 96365; J1580; J1644; J1956 ==

== ENCOUNTER → 2019-01-08 | Outpatient (CLI) | payer MEDICARE, OTHER ==
[~2019-01-08] MED LIST changes: +Florastor250 MG PO; +GENTAMICIN IV; +LEVFLO500 IV
[2019-01-08 13:00] LABS: Albumin, Blood 2.9 g/dL (3.4-5.0); Albumin/Globulin Ratio 0.8 (0.8-1.8); Bilirubin, Total 0.3 mg/dL (0.1-1.0); Bun/Creatinine Ratio 8.6 (12.0-20.0); Calcium, Blood 9.2 mg/dL (8.5-10.1); Creatinine, Blood 3.25 mg/dL (0.40-1.00); Globulin, Blood 3.7 g/dL (2.2-4.0); Potassium, Blood 4.4 mmol/L (3.5-5.5); Total Protein, Blood 6.6 g/dL (6.4-8.2)
== END | disposition home or self-care (01) ==
LOC: LAB SHORT 12:12 → PLD 12:12
PROVIDERS: Internal Medicine Hematology & Oncology
DX: D59.3 Hemolytic-uremic syndrome (principal)
CPT/HCPCS: 80053; 83615

== ENCOUNTER 2019-01-09 00:22 | Day surgery (SDC) | payer MEDICARE, OTHER | END 2019-01-09 23:12 | disposition home or self-care (01) | LOC: ATC 00:22 | DX: R78.81 Bacteremia (principal); I12.9 Hypertensive chronic kidney disease with stage 1 through stage 4 chronic kidney disease, or unspecified chronic kidney disease; N18.4 Chronic kidney disease, stage 4 (severe) | CPT/HCPCS: 96374; 96375; 96376; J1580 ==

== ENCOUNTER 2019-01-10 10:49 | Day surgery (SDC) | payer MEDICARE, OTHER | END 2019-01-10 11:59 | disposition home or self-care (01) | LOC: ATC 10:49 | DX: R78.81 Bacteremia (principal); I12.9 Hypertensive chronic kidney disease with stage 1 through stage 4 chronic kidney disease, or unspecified chronic kidney disease; N18.4 Chronic kidney disease, stage 4 (severe); Z88.5 Allergy status to narcotic agent; Z88.6 Allergy status to analgesic agent | CPT/HCPCS: 96365; 96375; J1580; J1956 ==

== ENCOUNTER 2019-01-11 00:09 | Day surgery (SDC) | payer MEDICARE, OTHER | END 2019-01-11 13:48 | disposition home or self-care (01) | LOC: ATC 00:09 | DX: R78.81 Bacteremia (principal); I12.9 Hypertensive chronic kidney disease with stage 1 through stage 4 chronic kidney disease, or unspecified chronic kidney disease; N18.4 Chronic kidney disease, stage 4 (severe); Z88.5 Allergy status to narcotic agent; Z88.6 Allergy status to analgesic agent | CPT/HCPCS: 96374; J1580 ==

== ENCOUNTER 2019-01-12 03:52 | Inpatient (IN) | payer MEDICARE, OTHER ==
[~2019-01-12] VITALS: Ht 182.9 cm; Wt 92.1 kg
[2019-01-12 04:56] LABS: BASOPHILS ABSOLUTE AUTO 0.05 K/mm3 (0.00-0.23); BASOPHILS PERCENT AUTO 0 % (0-2); EOSINOPHILS ABSOLUTE AUTO 0.52 K/mm3 (0.00-0.68); EOSINOPHILS PERCENT AUTO 4 % (0-6); Hemoglobin 10.2 g/dL (11.5-16.0); IMMATURE GRAN ABSOLUTE AUTO 0.04 K/mm3 (0.00-0.10); IMMATURE GRAN PERCENT AUTO 0 % (0-1); LYMPHOCYTES ABSOLUTE AUTO 1.83 K/mm3 (0.84-5.20); LYMPHOCYTES PERCENT AUTO 13 % (21-46); MONOCYTES PERCENT AUTO 6 % (4-13); Mean Corpuscular HGB 28.2 pg (26.0-34.0); Mean Corpuscular HGB Conc 31.9 g/dL (31.5-36.5); Mean Platelet Volume 9.8 fL (9.1-12.4); NEUTROPHILS ABSOLUTE AUTO 11.13 K/mm3 (1.96-9.15); NEUTROPHILS PERCENT AUTO 77 % (41-73); Platelet Count 306 K/mm3 (150-400); RDW Standard Deviation 48.1 fL (35.1-46.3); Red Blood Cell Count 3.62 M/mm3 (3.80-5.20); White Blood Cell Count 14.47 K/mm3 (4.00-11.30)
[2019-01-12 05:05] LABS: Mean Corpuscular Volume 88 fL (80-100)
[2019-01-12 05:15] LABS: Albumin/Globulin Ratio 0.7 (0.8-1.8); Bilirubin, Total 0.3 mg/dL (0.1-1.0); Bun/Creatinine Ratio 8.1 (12.0-20.0); Calcium, Blood 8.7 mg/dL (8.5-10.1); Creatinine, Blood 3.72 mg/dL (0.40-1.00); Globulin, Blood 4.3 g/dL (2.2-4.0); Potassium, Blood 3.9 mmol/L (3.5-5.5); Total Protein, Blood 7.3 g/dL (6.4-8.2)
--- NOTE | 2019-01-12 12:02 | NUR ---
CONSENT OBTAIN FROM PT TO PROVIDE CARE AND ACCESS RECORDS.
--- NOTE | 2019-01-12 13:50 | NUR ---
Patient is sitting up in bed but asleep. She easily awakens to the sound of her name. Patient openly shares about the blood clot in her are, her sleepless night, her frustrations about being back in the hospital and the dialysis that she recently finished that added to her tiredness. I listen empathically, normaized patient's experience and provided prayer. Patient voiced appreciation for the visit. I will continue to remain available to patient and family.
--- NOTE | 2019-01-12 17:05 | NUR ---
SHIFT SUMMARY: PT WAS ADMITTED FROM THE ED THIS MORNING AFTER ATTENDING THE ATC FOR OUTPATIENT IV ABO TREATMENTS AFTER HER MOST RECENT HOSPITAL STAY. SHE REPORTS PAIN AND SWELLING TO HER RIGHT UPPER ARM WHERE SHE HAD A POWERGLIDE IN PLACE. THE POWER GLIDE WAS REPORTEDLY REMOVED IN THE ER AND THE TIP WAS SENT TO THE LAB FOR A CULTURE. PT CONTINUES ON IV ABO FOR INFECTION OF THIS IV SITE. DIALYSIS NURSE CAME TO PT ROOM THIS MORNING FOR DIALYSIS. PT CONTINUES TO HAVE ONGOING C/O PAIN EVEN AFTER PAIN MEDS WERE GIVEN ORDERED. DR SANDOVAL WAS CALLED PER PT REQUEST AND GAVE ORDERS TO CONTINUE WITH CURRENT PAIN MED ORDERS AND PT WAS NOTIFIED OF THIS. PT IS COMPLIANT WITH HER CARE BUT GENERALLY GRUMPY AND GENERALLY UNHAPPY ABOUT THIS HOSPUTAL STAY. PT AMBULATES OUTSIDE TO SMOKE AT REGULAR INTERVALS. SHE IS INDEPENDENT IN HER ROOM. SHE IS ABLE TO MAKE HER NEEDS KNOWN. AND CALLS FOR HELP WHEN NEEDED.
--- NOTE | 2019-01-13 02:08 | NUR ---
POSITIVE BLOOD CULTURE CALLED DR BECERRA AND INFORMED HIM OF RESULTS. PROVIDER STATED CURRENT ABX COVERAGE IS GOOD.
--- NOTE | 2019-01-13 03:52 | NUR ---
SHIFT SUMMARY PT HAD CONTINUED PAIN TO RIGHT UPPER ARM. PT HAS BEEN MEDICATED PER EMAR WITH REKIEF. PT HAS BEEN PUTTING ICE PACKS ON ARM WHEN AWAKE. PT WALKS FREQUENTLY WHEN AWAKE. PT HAD SOME NAUSEA EARLY IN SHIFT AND TX PER EMAR. PT HAS BEEN SLEEPING OFF AND ON. PT STATES ARM PAIN WAKES HER UP. PT IS CURRENTLY SLEEPING AND BREATHING EASY. CALL LIGHT IN REACH.
[2019-01-13 05:39] LABS: BASOPHILS ABSOLUTE AUTO 0.09 K/mm3 (0.00-0.23); BASOPHILS PERCENT AUTO 1 % (0-2); EOSINOPHILS PERCENT AUTO 4 % (0-6); Hematocrit 30.2 % (33.0-51.0); Hemoglobin 9.4 g/dL (11.5-16.0); IMMATURE GRAN ABSOLUTE AUTO 0.06 K/mm3 (0.00-0.10); IMMATURE GRAN PERCENT AUTO 1 % (0-1); LYMPHOCYTES ABSOLUTE AUTO 2.83 K/mm3 (0.84-5.20); LYMPHOCYTES PERCENT AUTO 24 % (21-46); MONOCYTES ABSOLUTE AUTO 0.92 K/mm3 (0.16-1.47); MONOCYTES PERCENT AUTO 8 % (4-13); Mean Corpuscular HGB 27.7 pg (26.0-34.0); Mean Corpuscular HGB Conc 31.1 g/dL (31.5-36.5); Mean Corpuscular Volume 89 fL (80-100); Mean Platelet Volume 9.8 fL (9.1-12.4); NEUTROPHILS ABSOLUTE AUTO 7.63 K/mm3 (1.96-9.15); NEUTROPHILS PERCENT AUTO 64 % (41-73); Platelet Count 291 K/mm3 (150-400); RDW Standard Deviation 49.1 fL (35.1-46.3); Red Blood Cell Count 3.39 M/mm3 (3.80-5.20); White Blood Cell Count 12.03 K/mm3 (4.00-11.30)
[2019-01-13 06:01] LABS: Albumin, Blood 2.6 g/dL (3.4-5.0); Albumin/Globulin Ratio 0.6 (0.8-1.8); Alk Phos 52 U/L (50-136); Anion Gap 8 mmol/L (6-16); Aspartate Aminotrans (AST/SGOT 8 U/L (12-37); Bilirubin, Total 0.4 mg/dL (0.1-1.0); Blood Urea Nitrogen 26 mg/dL (8-24); CO2, Blood 33 mmol/L (21-32); Calcium, Blood 9.1 mg/dL (8.5-10.1); Chloride, Blood 95 mmol/L (98-108); Creatinine, Blood 3.69 mg/dL (0.40-1.00); Globulin, Blood 4.2 g/dL (2.2-4.0); Glomerular Filtration Rate 14 (60-); Glucose, Blood 88 mg/dL (70-99); Phosphorus, Blood 5.7 mg/dL (2.5-4.9); Potassium, Blood 3.9 mmol/L (3.5-5.5); Sodium, Blood 136 mmol/L (136-145); Total Protein, Blood 6.8 g/dL (6.4-8.2)
[2019-01-13 06:02] LABS: Alanine Aminotransfer (ALT/SGP <6 U/L (12-78)
--- NOTE | 2019-01-13 11:29 | NUR ---
Patient is getting ready to outside to smoke when I enter patient's room. Patient invites me to go with her. Patient tells me about her frustrations with her care this visit. I listen empathically and show her where the patient advocate office is. Patient states that she is extremely tired and would rather try to visit Patient [facility]ocate Tish when patient feels more rested than to have me contact her and risk having Tish wake her up once she has fallen asleep. I will continue to remain available to patient and family.
[2019-01-13 14:45] LABS: Vancomycin, Random 7.5 ug/mL
--- NOTE | 2019-01-13 18:25 | NUR ---
PATIENT HAS BEEN EITHER OUT SMOKING OR RESTING IN BED THIS SHIFT. SHE REQUESTS PAIN MEDS SOON THEY ARE AVAILABLE. THIS NURSE NOTICED THE REDNESS ON HER RIGHT ARM GETTING BIGGER. REDNESS WAS MARKED WITH PURPLE PEN. PATIENT IS ALERT AND ORIENTED AND ABLE TO EXPRESS ANY NEEDS. SHE IS INDEPENDENT IN THE ROOM . NO ACUTE CHANGES THIS SHIFT.
[2019-01-14 05:11] LABS: Hematocrit 32.1 % (33.0-51.0)
--- NOTE | 2019-01-14 05:21 | NUR ---
SHIFT SUMMARY AOX4. LS COARSE AND WHEEZY, SOB W/ACTIVITY. NO C/O NAUSEA. PAIN 8-9/10 IN R ARM. REDNESS AND SWELLING MARKED WITH SKIN PEN. DILAUDID GIVEN @ 0010. XANAX GIVEN @ 0045. PT OUTSIDE MULTIPLE TIMES SMOKING, INDEPENDENT. L UA POWERGLIDE IS SL. L PERMACATH TAKING CARE OF BY WEED SCIENCE RESEARCH TECHNICIAN. REFUSED HYDRALAZINE. VSS ON RA. POSSIBLE DC TODAY.
[2019-01-14 05:32] LABS: Albumin, Blood 2.8 g/dL (3.4-5.0); Anion Gap 7 mmol/L (6-16); Blood Urea Nitrogen 31 mg/dL (8-24); Bun/Creatinine Ratio 7.7 (12.0-20.0); CO2, Blood 33 mmol/L (21-32); Calcium, Blood 8.9 mg/dL (8.5-10.1); Chloride, Blood 95 mmol/L (98-108); Creatinine, Blood 4.05 mg/dL (0.40-1.00); Glomerular Filtration Rate 13 (60-); Glucose, Blood 105 mg/dL (70-99); Magnesium, Blood 2.2 mg/dL (1.6-2.4); Phosphorus, Blood 5.9 mg/dL (2.5-4.9); Potassium, Blood 3.6 mmol/L (3.5-5.5); Sodium, Blood 135 mmol/L (136-145)
[2019-01-14 12:51] LABS: Vancomycin, Random 10.7 ug/mL
--- NOTE | 2019-01-14 14:52 | NUR ---
Patient is sitting up in bed and eating candy. Patient informs me that she feels like she is getting better medical attention and that she appreciated the fact that Patient Advocate Tish stopped by. Patient stated that the time with her was good. I listened empathically and provided companionship and prayer. Patient responded well and voiced appreciation for the visit.
--- NOTE | 2019-01-14 19:10 | NUR ---
NO ACUTE CHANGES NOTED THIS SHIFT. REDNESS IMPROVING. PAIN MEDICATION ADJUSTED. ABLE TO MAKE HER NEEDS KNOWN. EAGER TO DISCHARGE TOMORROW.
[2019-01-15 06:55] LABS: Hematocrit 30.1 % (33.0-51.0); Hemoglobin 9.3 g/dL (11.5-16.0)
[2019-01-15 07:13] LABS: Albumin, Blood 2.7 g/dL (3.4-5.0); Anion Gap 7 mmol/L (6-16); Blood Urea Nitrogen 21 mg/dL (8-24); CO2, Blood 34 mmol/L (21-32); Calcium, Blood 9.1 mg/dL (8.5-10.1); Chloride, Blood 98 mmol/L (98-108); Creatinine, Blood 3.51 mg/dL (0.40-1.00); Glomerular Filtration Rate 15 (60-); Glucose, Blood 89 mg/dL (70-99); Magnesium, Blood 2.2 mg/dL (1.6-2.4); Phosphorus, Blood 4.8 mg/dL (2.5-4.9); Potassium, Blood 3.7 mmol/L (3.5-5.5); Sodium, Blood 139 mmol/L (136-145)
--- NOTE | 2019-01-15 08:00 | NUR ---
PATIENT REFUSED TO HAVE VITAL SIGNS TAKEN THIS MORNING SHE STATED THAT SOMEONE WAS IN THERE AT 0530 OR 0630 AND ALREADY TOOK THEM. SHE WAS UPSET THAT I WAS IN THERE AND BOTHORING HER, SHE STATED SHE WANTED TO GO BACK TO SLEEP AND NOT BE BOTHORED JUST LIKE THE NOTE ON THE DOOR STATED. THE NOTE ON THE DOOR STATES THAT SHE DID NOT WANT O BE BOTHORED UNTIL 0400. RN WAS NOTIFIED.
[2019-01-15 12:41] LABS: Vancomycin, Random 26.2 ug/mL
[2019-01-15] MEDS ORDERED: ENOX100I SC (13:34)
--- NOTE | 2019-01-15 14:59 | NUR ---
SHE DC'D TO HOME AT 1405 WITH INSTRUCTIONS AND BELONGINGS, INCLUDING HER PRESCRIPTION BOTTLES THAT SHE BROUGHT IN FROM HOME. SHE WENT OUTSIDE TO SMOKE ABOUT 4 OR 5 TIMES TODAY PRIOR TO HER DISCHARGE. AND SAW HER TODAY. HER R ARM IS HER MOST PAINFUL AREA BUT SHE SAYS SHE HURTS IN OTHER PLACES TO. SHE WAS NOT SPECIFIC. SHE RECEIVED OXYCODONE X2 AND PHENERGAN X1. SHE ATE WELL AND TAKES FLUIDS WELL. LCW PERMACATH SITE WNL WITH DRESSING INTACT. FERNANDO LEI FROM DIALYSIS INSTILLED THE ANTIBIOTIC ORDERED BY . HER DANICA PG DRESSING ALSO INTACT AND LOOKS WNL. I SPOKE [facility] AND THEN . HE IS PUTTING THROUGH A RESUME [facility] QOD FOR IV LEVAQUIN. [facility] WILL CALL HER AT HOME TO SET UP HER NEXT APPT. I MADE HER AN APPT. FOR ON THE BUT SHE SAYS SHE HAS AN APPT TO SEE HIM SATURDAY ON THE ANYWAY. SHE WAS HAPPY TO GO HOME SO SHE CAN TAKE HER 5 YR OLD TRICK OR TREATING TONIGHT. SHE PLANNED TO GO HOME, TAKE A NAP SO SHE WILL HAVE THE ENERGY TO TAKE HER.
== END 2019-01-15 14:04 | disposition home or self-care (01) | DRG 314 ==
LOC: ER 03:52 → MEDS 06:23 → ENPENDDIS 01-15 12:50 → MEDS 01-15 14:04
PROVIDERS: Emergency Medicine; Internal Medicine Nephrology; ADMIT Internal Medicine
DX: T82.7XXA Infection and inflammatory reaction due to other cardiac and vascular devices, implants and grafts, initial encounter (principal); N18.6 End stage renal disease; D59.3 Hemolytic-uremic syndrome; A40.9 Streptococcal sepsis, unspecified; I12.0 Hypertensive chronic kidney disease with stage 5 chronic kidney disease or end stage renal disease; I82.621 Acute embolism and thrombosis of deep veins of right upper extremity; E87.1 Hypo-osmolality and hyponatremia; Z92.21 Personal history of antineoplastic chemotherapy; F17.210 Nicotine dependence, cigarettes, uncomplicated; G43.909 Migraine, unspecified, not intractable, without status migrainosus; K21.9 Gastro-esophageal reflux disease without esophagitis; E83.39 Other disorders of phosphorus metabolism; D63.1 Anemia in chronic kidney disease; Z99.2 Dependence on renal dialysis; E86.9 Volume depletion, unspecified; B96.89 Other specified bacterial agents as the cause of diseases classified elsewhere
CPT/HCPCS: 36415; 80053; 80069; 80202; 83605; 83735; 84100; 85014; 85018; 85025; 87040; 87070; 93308; 93321; 93971; 96365; 96366; 96367; 96375; 96376; 99285-25; J0881; J1170; J1580; J1650; J2185; J2405; J2543; J3010; J3370; J7030; J7050

== ENCOUNTER 2019-01-16 11:55 | Day surgery (SDC) | payer MEDICARE, OTHER ==
[~2019-01-16 11:55] MED LIST changes: +ENOX100I SC
--- NOTE | 2019-01-16 18:06 | NUR ---
GENTAMYCIN MIXED WITH HEPARIN INSTILLED PER HD PORTS. STERILE TECHNIQUE MAINTAINED T/O PROCEDURE, PT ALSO WEARING MASK. REMOVED FLUID FROM BOTH PORTS, GOOD BLOOD RETURN NOTED ON RED PORT ONLY. STERILE BLUE CAPS PLACED TO EACH PORT. PT REFUSED TO HAVE COBAN WRAPPED ON ENDS OF PORT, REPORTS "IT JUST FALLS OFF ANYWAY" CHG DRESSING DRY AND INTACT. PT LEFT FACILITY IN STABLE CONDITION. VERBALIZES UNDERSTANDING TO RETURN TOMORROW FOR APPT.
== END 2019-01-16 22:35 | disposition home or self-care (01) ==
LOC: ATC 11:55
DX: R78.81 Bacteremia (principal); B96.89 Other specified bacterial agents as the cause of diseases classified elsewhere; N18.4 Chronic kidney disease, stage 4 (severe); I12.9 Hypertensive chronic kidney disease with stage 1 through stage 4 chronic kidney disease, or unspecified chronic kidney disease; G89.4 Chronic pain syndrome; G43.909 Migraine, unspecified, not intractable, without status migrainosus; D63.1 Anemia in chronic kidney disease; Z88.5 Allergy status to narcotic agent; Z88.6 Allergy status to analgesic agent; Z88.8 Allergy status to other drugs, medicaments and biological substances; Z79.01 Long term (current) use of anticoagulants; Z79.899 Other long term (current) drug therapy
CPT/HCPCS: J1580; J1956

== ENCOUNTER 2019-01-17 10:53 | Day surgery (SDC) | payer MEDICARE, OTHER | END 2019-01-17 11:42 | disposition home or self-care (01) | LOC: ATC 10:53 | DX: A41.9 Sepsis, unspecified organism (principal); I12.9 Hypertensive chronic kidney disease with stage 1 through stage 4 chronic kidney disease, or unspecified chronic kidney disease; N18.4 Chronic kidney disease, stage 4 (severe); D63.1 Anemia in chronic kidney disease; G43.909 Migraine, unspecified, not intractable, without status migrainosus; G89.4 Chronic pain syndrome; Z79.01 Long term (current) use of anticoagulants; Z79.899 Other long term (current) drug therapy; Z88.6 Allergy status to analgesic agent; Z88.5 Allergy status to narcotic agent; Z88.8 Allergy status to other drugs, medicaments and biological substances; Z91.048 Other nonmedicinal substance allergy status | CPT/HCPCS: 96523; J1580 ==

== ENCOUNTER 2019-01-18 00:11 | Day surgery (SDC) | payer MEDICARE, OTHER ==
--- NOTE | 2019-01-18 15:37 | NUR ---
IRIGATED DIALYSIS CATHETER AT 1526. EACH PORT WAS CLEANED WITH ALCOHOL X2. WITHDREW 5CC OF BLOOD FROM EACH PORT AND DISCARDED. EACH LINE WASIRIGATED WITH 20CC OF NS. INSTILLED APPROPRIATE AMOUNTS OF ANTIBIOTIC SOLUTION INTO EACH PORT. RED PORT WORKING BETTER TODAY. ASPIRATED AND FLUSHED EASILY. PT TOLERATED PROCEDURE WELL.
== END 2019-01-18 16:05 | disposition home or self-care (01) ==
LOC: ATC 00:11
DX: A41.9 Sepsis, unspecified organism (principal); I12.9 Hypertensive chronic kidney disease with stage 1 through stage 4 chronic kidney disease, or unspecified chronic kidney disease; N18.4 Chronic kidney disease, stage 4 (severe); D63.1 Anemia in chronic kidney disease; G89.4 Chronic pain syndrome; G43.909 Migraine, unspecified, not intractable, without status migrainosus; Z88.5 Allergy status to narcotic agent; Z88.6 Allergy status to analgesic agent; Z88.8 Allergy status to other drugs, medicaments and biological substances; Z79.899 Other long term (current) drug therapy; Z91.048 Other nonmedicinal substance allergy status
CPT/HCPCS: 96365; 96375; J1580; J1956

== ENCOUNTER 2019-01-19 00:05 | Day surgery (SDC) | payer MEDICARE, OTHER ==
--- NOTE | 2019-01-19 16:04 | NUR ---
WITHDREW 2.2 ML BLOOD FROM RED PORT, WASTE AND FLUSHED WITH 20ML NS. INSTILLED GENT/HEPARIN PER ORDERS. WITHDREW 2.0 ML BLOOD FROM WHITE PORT, WASTE AND FLUSHED WITH 20ML NS. INSTILLED GENT/HEPARIN PER ORDERS. NEW BLUE CAPS/CLAMPED X2 PORTS. MAINTAINING STERILE TECHNIQUE T/O PROCEDURE. MASK ON PT AND THIS RN. PT REFUSED COBAN WRAP TO ENDS OF PORT. "THEY JUST GET IN WAY OF BRA AND CAUSES PAIN".
== END 2019-01-19 15:50 | disposition home or self-care (01) ==
LOC: ATC 00:05
DX: R78.81 Bacteremia (principal); I12.0 Hypertensive chronic kidney disease with stage 5 chronic kidney disease or end stage renal disease; N18.6 End stage renal disease; D63.1 Anemia in chronic kidney disease; G43.909 Migraine, unspecified, not intractable, without status migrainosus; G89.4 Chronic pain syndrome; Z99.2 Dependence on renal dialysis; Z88.5 Allergy status to narcotic agent; Z88.6 Allergy status to analgesic agent; Z88.8 Allergy status to other drugs, medicaments and biological substances; Z91.048 Other nonmedicinal substance allergy status; Z79.01 Long term (current) use of anticoagulants; Z79.899 Other long term (current) drug therapy
CPT/HCPCS: J1580

== ENCOUNTER → 2019-01-20 | Outpatient (CLI) | payer MEDICARE, OTHER ==
[~2019-01-20] MED LIST changes: -LEVFLO500 IV; +LEVFLO500 PO
[2019-01-20 14:12] LABS: Albumin, Blood 2.9 g/dL (3.4-5.0); Albumin/Globulin Ratio 0.8 (0.8-1.8); Bilirubin, Total 0.1 mg/dL (0.1-1.0); Bun/Creatinine Ratio 7.7 (12.0-20.0); Calcium, Blood 9.6 mg/dL (8.5-10.1); Creatinine, Blood 2.85 mg/dL (0.40-1.00); Globulin, Blood 3.8 g/dL (2.2-4.0); Potassium, Blood 5.1 mmol/L (3.5-5.5); Total Protein, Blood 6.7 g/dL (6.4-8.2)
== END | disposition home or self-care (01) ==
LOC: LAB SHORT 13:26 → LAB 13:26
PROVIDERS: Internal Medicine Hematology & Oncology
DX: N18.6 End stage renal disease (principal); D59.3 Hemolytic-uremic syndrome
CPT/HCPCS: 80053; 86162

== ENCOUNTER 2019-01-23 01:03 | Day surgery (SDC) | payer MEDICARE, OTHER | END 2019-01-23 16:12 | disposition home or self-care (01) | LOC: ATC 01:03 | DX: A49.9 Bacterial infection, unspecified (principal); I12.9 Hypertensive chronic kidney disease with stage 1 through stage 4 chronic kidney disease, or unspecified chronic kidney disease; N18.4 Chronic kidney disease, stage 4 (severe); Z88.5 Allergy status to narcotic agent; Z88.6 Allergy status to analgesic agent; Z88.1 Allergy status to other antibiotic agents; Z88.8 Allergy status to other drugs, medicaments and biological substances; Z99.2 Dependence on renal dialysis | CPT/HCPCS: J1580 ==

== ENCOUNTER 2019-01-25 13:45 | Day surgery (SDC) | payer MEDICARE, OTHER ==
--- NOTE | 2019-01-25 14:39 | NUR ---
PT PRESENTED TODAY WITH ELEVATED BP & HEADACHE. ADVISED PT I NEEDED TO TAKE HER TO THE ER FOR EVALUATION. PT STATED HER DIASTOLIC RUNS 100-105 NORMALLY AND HAS BEEN HIGH 130. SHE STATES SHE FORGOT HER BP MEDS THIS MORNING. RECHECK BP AFTER APPROXIMATELY 30 MIN AND IT WAS STILL ELEVATED. PT PULLED OUT 25 MG OF PO HYDRALAZINE AND TOOK NOW. PT REFUSES ER VISIT. PT STATES SHE WILL CHECK HER BP AT HOME IN 45-60 MIN AND IF IT IS STILL ELEVATED WILL COME INTO ER FOR EVALUATION. PT AWARE OF HIGH RISK FOR STROKES AND EDUCATED REGARDING BP. PT VERBALIZED UNDERSTANDING OF RISKS.
== END 2019-01-25 14:23 | disposition home or self-care (01) ==
LOC: ATC 13:45
DX: R78.81 Bacteremia (principal); I12.9 Hypertensive chronic kidney disease with stage 1 through stage 4 chronic kidney disease, or unspecified chronic kidney disease; N18.4 Chronic kidney disease, stage 4 (severe); D63.1 Anemia in chronic kidney disease; D59.3 Hemolytic-uremic syndrome; G89.4 Chronic pain syndrome; Z79.01 Long term (current) use of anticoagulants; Z79.899 Other long term (current) drug therapy; Z88.5 Allergy status to narcotic agent; Z88.6 Allergy status to analgesic agent; Z88.8 Allergy status to other drugs, medicaments and biological substances; Z91.048 Other nonmedicinal substance allergy status
CPT/HCPCS: J1580

== ENCOUNTER 2019-01-26 00:15 | Day surgery (SDC) | payer MEDICARE, OTHER | END 2019-01-26 15:40 | disposition home or self-care (01) | LOC: ATC 00:15 | DX: R78.81 Bacteremia (principal); I12.9 Hypertensive chronic kidney disease with stage 1 through stage 4 chronic kidney disease, or unspecified chronic kidney disease; N18.4 Chronic kidney disease, stage 4 (severe); D63.1 Anemia in chronic kidney disease; G43.909 Migraine, unspecified, not intractable, without status migrainosus; D59.3 Hemolytic-uremic syndrome; G89.4 Chronic pain syndrome; Z79.01 Long term (current) use of anticoagulants; Z79.899 Other long term (current) drug therapy; Z88.5 Allergy status to narcotic agent; Z88.6 Allergy status to analgesic agent; Z88.8 Allergy status to other drugs, medicaments and biological substances; Z91.048 Other nonmedicinal substance allergy status | CPT/HCPCS: 96374; J1580 ==

== ENCOUNTER 2019-01-27 00:17 | Day surgery (SDC) | payer MEDICARE, OTHER ==
[2019-01-27 16:18] LABS: BASOPHILS ABSOLUTE AUTO 0.06 K/mm3 (0.00-0.23); BASOPHILS PERCENT AUTO 1 % (0-2); EOSINOPHILS ABSOLUTE AUTO 1.21 K/mm3 (0.00-0.68); EOSINOPHILS PERCENT AUTO 13 % (0-6); Hematocrit 31.4 % (33.0-51.0); Hemoglobin 9.9 g/dL (11.5-16.0); IMMATURE GRAN ABSOLUTE AUTO 0.03 K/mm3 (0.00-0.10); IMMATURE GRAN PERCENT AUTO 0 % (0-1); LYMPHOCYTES ABSOLUTE AUTO 1.87 K/mm3 (0.84-5.20); LYMPHOCYTES PERCENT AUTO 20 % (21-46); MONOCYTES ABSOLUTE AUTO 0.24 K/mm3 (0.16-1.47); MONOCYTES PERCENT AUTO 3 % (4-13); Mean Corpuscular HGB 27.5 pg (26.0-34.0); Mean Corpuscular HGB Conc 31.5 g/dL (31.5-36.5); Mean Corpuscular Volume 87 fL (80-100); Mean Platelet Volume 10.7 fL (9.1-12.4); NEUTROPHILS ABSOLUTE AUTO 5.96 K/mm3 (1.96-9.15); NEUTROPHILS PERCENT AUTO 64 % (41-73); Platelet Count 175 K/mm3 (150-400); RDW Coefficient Variation 15.5 % (11.7-14.2); RDW Standard Deviation 49.8 fL (35.1-46.3); White Blood Cell Count 9.37 K/mm3 (4.00-11.30)
[2019-01-27 16:45] LABS: Alanine Aminotransfer (ALT/SGP 12 U/L (12-78); Albumin/Globulin Ratio 0.7 (0.8-1.8); Alk Phos 59 U/L (50-136); Anion Gap 6 mmol/L (6-16); Aspartate Aminotrans (AST/SGOT 9 U/L (12-37); Bilirubin, Direct <0.1 mg/dL (0.0-0.3); Bilirubin, Indirect Unable to Calculate mg/dL (0.1-0.7); Bilirubin, Total 0.2 mg/dL (0.1-1.0); Blood Urea Nitrogen 51 mg/dL (8-24); Bun/Creatinine Ratio 13.2 (12.0-20.0); CO2, Blood 27 mmol/L (21-32); Calcium, Blood 9.1 mg/dL (8.5-10.1); Chloride, Blood 103 mmol/L (98-108); Creatinine, Blood 3.87 mg/dL (0.40-1.00); Globulin, Blood 4.2 g/dL (2.2-4.0); Glomerular Filtration Rate 13 (60-); Glucose, Blood 100 mg/dL (70-99); Phosphorus, Blood 5.1 mg/dL (2.5-4.9); Potassium, Blood 4.1 mmol/L (3.5-5.5); Sodium, Blood 136 mmol/L (136-145); Total Protein, Blood 7.2 g/dL (6.4-8.2)
== END 2019-01-27 16:10 | disposition home or self-care (01) ==
LOC: ATC 00:17
PROVIDERS: Internal Medicine Nephrology
DX: R78.81 Bacteremia (principal); I12.9 Hypertensive chronic kidney disease with stage 1 through stage 4 chronic kidney disease, or unspecified chronic kidney disease; N18.4 Chronic kidney disease, stage 4 (severe); D63.1 Anemia in chronic kidney disease; G43.909 Migraine, unspecified, not intractable, without status migrainosus; D59.3 Hemolytic-uremic syndrome; G89.4 Chronic pain syndrome; Z79.01 Long term (current) use of anticoagulants; Z79.899 Other long term (current) drug therapy; Z88.5 Allergy status to narcotic agent; Z88.6 Allergy status to analgesic agent; Z88.8 Allergy status to other drugs, medicaments and biological substances; Z91.048 Other nonmedicinal substance allergy status
CPT/HCPCS: 80053; 82248; 82306; 84100; 85025; 96374; J1580

== ENCOUNTER 2019-01-30 00:31 | Day surgery (SDC) | payer MEDICARE, OTHER ==
[~2019-01-30 00:31] MED LIST changes: +Aciphex20 MG PO; -CREON DR 6,0001 EACH PO; +ONDA4ODT SL; -RABE20 PO
== END 2019-01-30 15:14 | disposition home or self-care (01) ==
LOC: ATC 00:31
DX: R78.81 Bacteremia (principal); I12.9 Hypertensive chronic kidney disease with stage 1 through stage 4 chronic kidney disease, or unspecified chronic kidney disease; N18.4 Chronic kidney disease, stage 4 (severe); D63.1 Anemia in chronic kidney disease; G43.909 Migraine, unspecified, not intractable, without status migrainosus; D59.3 Hemolytic-uremic syndrome; G89.4 Chronic pain syndrome; Z79.01 Long term (current) use of anticoagulants; Z79.899 Other long term (current) drug therapy; Z88.5 Allergy status to narcotic agent; Z88.6 Allergy status to analgesic agent; Z88.8 Allergy status to other drugs, medicaments and biological substances; Z91.048 Other nonmedicinal substance allergy status
CPT/HCPCS: 96374; J1580

== ENCOUNTER 2019-01-31 12:12 | Observation (INO) | payer MEDICARE, OTHER ==
[~2019-01-31] VITALS: Ht 182.9 cm; Wt 84.8 kg
[2019-01-31 13:26] LABS: BASOPHILS ABSOLUTE AUTO 0.09 K/mm3 (0.00-0.23); BASOPHILS PERCENT AUTO 1 % (0-2); EOSINOPHILS ABSOLUTE AUTO 0.98 K/mm3 (0.00-0.68); EOSINOPHILS PERCENT AUTO 10 % (0-6); Hematocrit 39.4 % (33.0-51.0); IMMATURE GRAN ABSOLUTE AUTO 0.14 K/mm3 (0.00-0.10); IMMATURE GRAN PERCENT AUTO 1 % (0-1); LYMPHOCYTES ABSOLUTE AUTO 2.89 K/mm3 (0.84-5.20); LYMPHOCYTES PERCENT AUTO 28 % (21-46); MONOCYTES ABSOLUTE AUTO 0.79 K/mm3 (0.16-1.47); MONOCYTES PERCENT AUTO 8 % (4-13); Mean Corpuscular HGB 26.7 pg (26.0-34.0); Mean Corpuscular HGB Conc 30.5 g/dL (31.5-36.5); Mean Corpuscular Volume 88 fL (80-100); Mean Platelet Volume 10.2 fL (9.1-12.4); NEUTROPHILS ABSOLUTE AUTO 5.39 K/mm3 (1.96-9.15); NEUTROPHILS PERCENT AUTO 52 % (41-73); Platelet Count 246 K/mm3 (150-400); RDW Coefficient Variation 15.6 % (11.7-14.2); RDW Standard Deviation 49.4 fL (35.1-46.3); White Blood Cell Count 10.28 K/mm3 (4.00-11.30)
[2019-01-31 13:51] LABS: Albumin, Blood 3.4 g/dL (3.4-5.0); Albumin/Globulin Ratio 0.8 (0.8-1.8); Bilirubin, Total 0.2 mg/dL (0.1-1.0); Calcium, Blood 10.3 mg/dL (8.5-10.1); Creatinine, Blood 3.09 mg/dL (0.40-1.00); Globulin, Blood 4.4 g/dL (2.2-4.0); Total Protein, Blood 7.8 g/dL (6.4-8.2)
--- NOTE | 2019-01-31 17:13 | NUR ---
SHIFT SUMMARY/ADMIT NOTE PT ADMITTED FROM ED. RECEIVED HANDOFF NOTE FROM ED NURSE LIUDMILA. PT INDEPENDENTLY AMBULATED TO ROOM. DIALYSIS NURSE WILL FLUSH DIALYSIS PORT AND CULTURE IT. PLAN IS FOR MORNING LABS, IF GFR >15 PT MAY DC W/O DIALYSIS. IF GFR < 15 THEN PT WILL HAVE DIALYSIS, THEN DC HOME. I AM ATTEMPTING TO GET MEDS THAT ARE NOT LOADED IN THE PYXIS SENT FROM PHARMACY. ORLY HAS ROUNDED ON PT THIS SHIFT.
--- NOTE | 2019-02-01 04:29 | NUR ---
SHIFT SUMMARY: 43 Y/O FEMALE RESTED COMFORTABLY ALL SHIFT, PT C/O GENERALIZED PAIN RATED 6/10 WITH ROXICODONE 10MG PO GIVEN TWICE WITH RELIEF FELT FELT, PT OUTSIDE TO SMOKE 4 TIMES WITH GAIT SLOW AND STEADY, HAPPY AND COOPERATIVE, BED LOW POSITION WITH CALL LIGHT AT SIDE.
[2019-02-01 05:28] LABS: Hematocrit 34.9 % (33.0-51.0); Hemoglobin 10.9 g/dL (11.5-16.0)
[2019-02-01 05:48] LABS: Albumin, Blood 3.3 g/dL (3.4-5.0); Anion Gap 6 mmol/L (6-16); Blood Urea Nitrogen 36 mg/dL (8-24); Bun/Creatinine Ratio 10.2 (12.0-20.0); CO2, Blood 29 mmol/L (21-32); Calcium, Blood 9.4 mg/dL (8.5-10.1); Chloride, Blood 103 mmol/L (98-108); Creatinine, Blood 3.53 mg/dL (0.40-1.00); Glomerular Filtration Rate 15 (60-); Glucose, Blood 105 mg/dL (70-99); Magnesium, Blood 1.8 mg/dL (1.6-2.4); Phosphorus, Blood 5.3 mg/dL (2.5-4.9); Potassium, Blood 4.1 mmol/L (3.5-5.5); Sodium, Blood 138 mmol/L (136-145)
--- NOTE | 2019-02-01 12:03 | NUR ---
DIALYSIS TX CONNECTED WITH PORTS REVERSED. UNABLE TO ASPIRATE THE ART PORT AT ALL, THE VENOUS FELT GOOD BUT KEPT DROPPING THE ART PRESSURE. MULT ART PRESSURE ALARMS. FLUSHED THE LINE AND PORT WITH SALINE. IMPROVED WHEN SHE FELL ASLEEP. SHE DID BECOME NAUSEATED AND VOMITED (600 ML). FELL BACK TO SLEEP AFTER NAUSEA MEDS GIVEN
--- NOTE | 2019-02-01 14:21 | NUR ---
DISCHARGE SUMMARY PATIENT WAS PLEASANT. CULTURES RESULTS SENT TO DR. VILLALBA. PATIENT DISCHARGED POST DIALYSIS.
== END 2019-02-01 12:41 | disposition home or self-care (01) ==
LOC: ER 12:12 → MEDS 12:13
PROVIDERS: Emergency Medicine; Internal Medicine Nephrology; ADMIT Hospitalist
DX: T82.7XXA Infection and inflammatory reaction due to other cardiac and vascular devices, implants and grafts, initial encounter (principal); Y83.1 Surgical operation with implant of artificial internal device as the cause of abnormal reaction of the patient, or of later complication, without mention of misadventure at the time of the procedure; I12.9 Hypertensive chronic kidney disease with stage 1 through stage 4 chronic kidney disease, or unspecified chronic kidney disease; N18.4 Chronic kidney disease, stage 4 (severe); D63.1 Anemia in chronic kidney disease; F17.210 Nicotine dependence, cigarettes, uncomplicated; Z79.899 Other long term (current) drug therapy; Z88.5 Allergy status to narcotic agent; Z88.6 Allergy status to analgesic agent; Z88.8 Allergy status to other drugs, medicaments and biological substances
CPT/HCPCS: 36415; 80053; 80069; 83605; 83690; 83735; 85014; 85018; 85025; 87040; 87077; 87186; 96372; 99284; G0257; G0378; J1580; J1650; J2997

== ENCOUNTER 2019-02-01 00:07 | Day surgery (SDC) | payer MEDICARE, OTHER | END 2019-02-01 22:35 | disposition home or self-care (01) | LOC: ATC 00:07 | DX: R78.81 Bacteremia (principal); I12.9 Hypertensive chronic kidney disease with stage 1 through stage 4 chronic kidney disease, or unspecified chronic kidney disease; N18.4 Chronic kidney disease, stage 4 (severe); D63.1 Anemia in chronic kidney disease; G43.909 Migraine, unspecified, not intractable, without status migrainosus; D59.3 Hemolytic-uremic syndrome; G89.4 Chronic pain syndrome; Z79.01 Long term (current) use of anticoagulants; Z79.899 Other long term (current) drug therapy; Z88.5 Allergy status to narcotic agent; Z88.6 Allergy status to analgesic agent; Z88.8 Allergy status to other drugs, medicaments and biological substances; Z91.048 Other nonmedicinal substance allergy status ==

== ENCOUNTER 2019-02-02 00:07 | Day surgery (SDC) | payer MEDICARE, OTHER | END 2019-02-02 22:55 | disposition home or self-care (01) | LOC: ATC 00:07 | DX: R78.81 Bacteremia (principal); I12.9 Hypertensive chronic kidney disease with stage 1 through stage 4 chronic kidney disease, or unspecified chronic kidney disease; N18.4 Chronic kidney disease, stage 4 (severe); D63.1 Anemia in chronic kidney disease; D59.3 Hemolytic-uremic syndrome; G43.909 Migraine, unspecified, not intractable, without status migrainosus; G89.4 Chronic pain syndrome; D69.6 Thrombocytopenia, unspecified; Z88.5 Allergy status to narcotic agent; Z88.6 Allergy status to analgesic agent; Z88.8 Allergy status to other drugs, medicaments and biological substances; Z79.01 Long term (current) use of anticoagulants; Z79.899 Other long term (current) drug therapy; Z91.048 Other nonmedicinal substance allergy status ==

== ENCOUNTER → 2019-02-04 | Outpatient (CLI) | payer MEDICARE, OTHER ==
[~2019-02-04] MED LIST changes: +MERREM1 GM IV; +MYCAMINE100 MG IV
[2019-02-04 13:59] LABS: Albumin, Blood 3.5 g/dL (3.4-5.0); Albumin/Globulin Ratio 0.9 (0.8-1.8); Bilirubin, Total 0.3 mg/dL (0.1-1.0); Bun/Creatinine Ratio 7.6 (12.0-20.0); Calcium, Blood 9.3 mg/dL (8.5-10.1); Creatinine, Blood 3.4 mg/dL (0.40-1.00); Globulin, Blood 3.9 g/dL (2.2-4.0); Potassium, Blood 4.2 mmol/L (3.5-5.5); Total Protein, Blood 7.4 g/dL (6.4-8.2)
== END | disposition home or self-care (01) ==
LOC: LAB SHORT 12:10 → LAB 12:10
PROVIDERS: Internal Medicine Hematology & Oncology
DX: D59.3 Hemolytic-uremic syndrome (principal)
CPT/HCPCS: 80053; 86162

== ENCOUNTER 2019-02-10 17:46 | Inpatient (IN) | payer MEDICARE, OTHER ==
[~2019-02-10] VITALS: Ht 182.9 cm; Wt 88.9 kg
[~2019-02-10 17:46] MED LIST changes: -MERREM1 GM IV; -MYCAMINE100 MG IV
[2019-02-10 18:54] LABS: BASOPHILS ABSOLUTE AUTO 0.06 K/mm3 (0.00-0.23); BASOPHILS PERCENT AUTO 1 % (0-2); EOSINOPHILS ABSOLUTE AUTO 0.83 K/mm3 (0.00-0.68); EOSINOPHILS PERCENT AUTO 7 % (0-6); Hematocrit 32.8 % (33.0-51.0); Hemoglobin 10.3 g/dL (11.5-16.0); IMMATURE GRAN ABSOLUTE AUTO 0.03 K/mm3 (0.00-0.10); IMMATURE GRAN PERCENT AUTO 0 % (0-1); LYMPHOCYTES ABSOLUTE AUTO 1.27 K/mm3 (0.84-5.20); LYMPHOCYTES PERCENT AUTO 11 % (21-46); MONOCYTES ABSOLUTE AUTO 1.31 K/mm3 (0.16-1.47); MONOCYTES PERCENT AUTO 12 % (4-13); Mean Corpuscular HGB 26.1 pg (26.0-34.0); Mean Corpuscular HGB Conc 31.4 g/dL (31.5-36.5); Mean Platelet Volume 11.1 fL (9.1-12.4); NEUTROPHILS ABSOLUTE AUTO 7.84 K/mm3 (1.96-9.15); NEUTROPHILS PERCENT AUTO 69 % (41-73); Platelet Count 102 K/mm3 (150-400); RDW Coefficient Variation 15.1 % (11.7-14.2); RDW Standard Deviation 46.3 fL (35.1-46.3); Red Blood Cell Count 3.94 M/mm3 (3.80-5.20); White Blood Cell Count 11.34 K/mm3 (4.00-11.30)
[2019-02-10 18:59] LABS: Mean Corpuscular Volume 83 fL (80-100)
[2019-02-10 19:03] LABS: Albumin/Globulin Ratio 0.7 (0.8-1.8); Bilirubin, Total 0.4 mg/dL (0.1-1.0); Bun/Creatinine Ratio 9.2 (12.0-20.0); Calcium, Blood 8.8 mg/dL (8.5-10.1); Creatinine, Blood 4.47 mg/dL (0.40-1.00); Globulin, Blood 4.3 g/dL (2.2-4.0); Potassium, Blood 3.8 mmol/L (3.5-5.5); Total Protein, Blood 7.3 g/dL (6.4-8.2)
[2019-02-10] MEDS ORDERED: SEVEC800 PO (19:21)
[2019-02-10 19:23] LABS: International Normalized Ratio 1.14; Prothrombin Time Results 11.9 Sec (9.7-11.5)
--- NOTE | 2019-02-11 05:40 | NUR ---
*CONSULT NEEDED* DR PALMER'S CONSULT NEEDS TO BE MADE STILL. ANSWERING SERVICE CONTACTED ONLY HAD OPTIONS FOR [employer] OFFICER PROVIDERS. A CONSULT WAS STILL PLACED IN STRAIGHT RULING MACHINE OPERATOR WAS ABLE TO FORWARD INFORMATION.
--- NOTE | 2019-02-11 06:21 | NUR ---
TANK PUMPER SUMMARY PT NEW ADMIT THIS SHIFT. PT APPEARS DROWSY MOST OF SHIFT AND FALLS ASLEEP EASILY, BUT ALSO AROUSABLE. PT WAS ALSO IRRITATED AT BEGINNING OF ADMISSION. SHE STATED THAT THERE WERE A LOT OF QUESTIONS ASKED OF HER AND WANTED TO SLEEP. PT COMPLAINED OF GENERALIZED PAIN AND WAS MEDICATED PER EMAR. DR. VILLALBA CAME IN TO SEE PT TONIGHT. WAS TOLD TO DISCONTINUE BOLUS FLUIDS AND MAINTAINANCE FLUIDS. DR. VILLALBA REQUESTED PT TO START ON ANTIFUNGAL. CONSULTED DR. BURNHAM MADE BY POWER SHOVEL MECHANIC. ATTEMPS TO MAKE CONSULT WITH SPENCER WAS MADE. WILL NOTIFY AM NURSE ABOUT CONSULT TO DR. PALMER. BLOOD CULTURE RESULTS RECIVED FROM [facility] AND FAXED TO DR. PALMER'S OFFICE. PT REFUSED LAB DRAW THIS MORNING. NO ISSUES OR COMPLAINTS NOTED.
[2019-02-11 07:25] LABS: BASOPHILS ABSOLUTE AUTO 0.08 K/mm3 (0.00-0.23); BASOPHILS PERCENT AUTO 1 % (0-2); EOSINOPHILS ABSOLUTE AUTO 1.31 K/mm3 (0.00-0.68); EOSINOPHILS PERCENT AUTO 11 % (0-6); Hematocrit 30.2 % (33.0-51.0); Hemoglobin 9.4 g/dL (11.5-16.0); IMMATURE GRAN ABSOLUTE AUTO 0.03 K/mm3 (0.00-0.10); IMMATURE GRAN PERCENT AUTO 0 % (0-1); LYMPHOCYTES ABSOLUTE AUTO 1.63 K/mm3 (0.84-5.20); LYMPHOCYTES PERCENT AUTO 13 % (21-46); MONOCYTES ABSOLUTE AUTO 1.32 K/mm3 (0.16-1.47); MONOCYTES PERCENT AUTO 11 % (4-13); Mean Corpuscular HGB Conc 31.1 g/dL (31.5-36.5); Mean Corpuscular Volume 83 fL (80-100); Mean Platelet Volume 11.9 fL (9.1-12.4); NEUTROPHILS ABSOLUTE AUTO 7.82 K/mm3 (1.96-9.15); NEUTROPHILS PERCENT AUTO 64 % (41-73); Platelet Count 110 K/mm3 (150-400); RDW Coefficient Variation 15.1 % (11.7-14.2); RDW Standard Deviation 46.3 fL (35.1-46.3); Red Blood Cell Count 3.62 M/mm3 (3.80-5.20); White Blood Cell Count 12.19 K/mm3 (4.00-11.30)
[2019-02-11 07:36] LABS: Albumin/Globulin Ratio 0.8 (0.8-1.8); Bilirubin, Total 0.4 mg/dL (0.1-1.0); Bun/Creatinine Ratio 9.2 (12.0-20.0); Calcium, Blood 8.9 mg/dL (8.5-10.1); Creatinine, Blood 4.23 mg/dL (0.40-1.00); Magnesium, Blood 2.2 mg/dL (1.6-2.4); Phosphorus, Blood 3.8 mg/dL (2.5-4.9); Potassium, Blood 3.9 mmol/L (3.5-5.5)
--- NOTE | 2019-02-11 07:52 | NUR ---
RESP PANEL REFUSAL/HEADACHE PT REFUSED TO COMPLETE A RESPIRATORY PANEL. PT STATES "ITS UNCOMFORTABLE & SHE WILL NOT HAVE IT DONE" DR. MORALES NOTIFIED. PANEL DC'ED. DR. MORALES ALSO NOTIFIED THAT PT HAS A HEADACHE & IS REQUESTING HER HOME FIORECET DOSE. WILL CONTINUE TO MONITOR.
--- NOTE | 2019-02-11 07:58 | NUR ---
DR. VILLALBA UPDATED ON ID CONSULT MESSAGE LEFT WITH DR. VILLALBA THAT DR. PALMER IS NOT TAKING CONSULTS THIS WEEK. CALL BACK NUMBER LEFT FOR QUESTIONS.
[2019-02-11 12:11] LABS: Vancomycin, Random 12.5 ug/mL
--- NOTE | 2019-02-11 12:21 | NUR ---
PT BACK FROM DIALYSIS PT BACK FROM DIALYSIS. PT UPDATED ON PLAN FOR DIALYSIS CATH REPLACEMENT & NPO STATUS AT THIS TIME. ECHO BEING COMPLETED AT THIS TIME. WILL CONTINUE TO MONITOR.
--- NOTE | 2019-02-11 12:39 | NUR ---
Echocardiogram completed.
--- NOTE | 2019-02-11 14:14 | NUR ---
[facility] care visit conducted. Patient is lying in bed and alert. Patient's dad, mom and daughter are present. Patient explains about the medical issues she is having and the surgery that she is told she will have today. Patient expresses her frustration about being in the hospital for birthdays and holidays. I listen empathically and provide a calming presence and prayer. Patient and family thank me for the visit.
--- NOTE | 2019-02-11 15:28 | NUR ---
PT TAKEN TO DEPUTY DIRECTOR OF FINANCE. FAMILY AWARE
--- NOTE | 2019-02-11 16:13 | NUR ---
RETURN FROM QUILLER OPERATOR PT RETURNED FROM QUILLER OPERATOR. NEW CATHETER SITE CLEAN & INTACT. NO BLEEDING OR HEMATOMA NOTED. PT VITALS STABLE. PT AWAKE BUT DROWSY. CALL LIGHT IN REACH. FAMILY AT BEDSIDE. WILL CONTINUE TO MONITOR.
--- NOTE | 2019-02-11 16:57 | NUR ---
SHIFT SUMMARY PT TAKEN FOR NEW DIALYSIS CATHETER THIS AFTERNOON. PT BACK IN ROOM NOW. VITALS STABLE, HOWEVER PT IS REQUIRING 1L O2 TO MAINTAIN O2 SATS ABOVE 90%. NO OTHER CHANGES IN ASSESSMENT AT THIS TIME. VSS. WILL CONTINUE TO MONITOR UNTIL TURNOVER IS COMPLETE. SEE EMAR FOR PAIN MEDS GIVEN.
--- NOTE | 2019-02-11 18:29 | NUR ---
UNABLE TO GET ONE SET OF POST OP VITALS. PT OUT OF ROOM.
[2019-02-11 22:54] LABS: Source, Urine Catheter
[2019-02-11 23:01] LABS: Bilirubin, Urine Neg (Neg); Blood, Urine 1+ (Neg); Glucose Qualitative, Urine Neg (Neg); Ketones, Urine Neg (Neg); Leukocyte Esterase, Urine 2+ (Neg); Nitrite, Urine Neg (Neg); Protein, Urine 3+ (Neg); Specific Gravity, Urine 1.015 (1.003-1.022); Urobilinogen, Urine NORM (Normal)
[2019-02-11 23:09] LABS: Appearance, Urine Hazy (Clear); Bacteria Mod /hpf; Color, Urine Yellow (P-Yellow); Red Blood Cells, Urine 0-2 /hpf (0-2); Squamous Epithelial Cells Many /hpf (Few); White Blood Cells, Urine 25-50 /hpf (0-5); Yeast/Fungi Urine Few /hpf
--- NOTE | 2019-02-12 04:01 | NUR ---
SHIFT SUMMARY PT HAD CONTINUED DISCOMFORT AT [facility] SITE. PAIN TX WELL PER EMAR. PT HAS NOT SLEPT VERY MUCH T/O SHIFT. PT HAS BEEN WALKING ABOUT THE CAMPUS W/O ISSUE. PT HAD NO NEW ISSUES NOTED. PT CURRENTLY AWAKE AND IN NO DISTRESS. CALL LIGHT IN REACH.
[2019-02-12 07:11] LABS: BASOPHILS ABSOLUTE AUTO 0.09 K/mm3 (0.00-0.23); BASOPHILS PERCENT AUTO 1 % (0-2); EOSINOPHILS ABSOLUTE AUTO 1.48 K/mm3 (0.00-0.68); EOSINOPHILS PERCENT AUTO 20 % (0-6); Hemoglobin 8.5 g/dL (11.5-16.0); IMMATURE GRAN ABSOLUTE AUTO 0.02 K/mm3 (0.00-0.10); IMMATURE GRAN PERCENT AUTO 0 % (0-1); LYMPHOCYTES ABSOLUTE AUTO 2.19 K/mm3 (0.84-5.20); LYMPHOCYTES PERCENT AUTO 29 % (21-46); MONOCYTES ABSOLUTE AUTO 1.04 K/mm3 (0.16-1.47); MONOCYTES PERCENT AUTO 14 % (4-13); Mean Corpuscular HGB 25.8 pg (26.0-34.0); Mean Corpuscular HGB Conc 30.4 g/dL (31.5-36.5); Mean Corpuscular Volume 85 fL (80-100); Mean Platelet Volume 11.3 fL (9.1-12.4); NEUTROPHILS ABSOLUTE AUTO 2.66 K/mm3 (1.96-9.15); NEUTROPHILS PERCENT AUTO 36 % (41-73); Platelet Count 124 K/mm3 (150-400); RDW Coefficient Variation 15.1 % (11.7-14.2); RDW Standard Deviation 47.1 fL (35.1-46.3); Red Blood Cell Count 3.29 M/mm3 (3.80-5.20); White Blood Cell Count 7.48 K/mm3 (4.00-11.30)
[2019-02-12 07:34] LABS: Albumin, Blood 2.8 g/dL (3.4-5.0); Anion Gap 6 mmol/L (6-16); Blood Urea Nitrogen 26 mg/dL (8-24); Bun/Creatinine Ratio 8.3 (12.0-20.0); CO2, Blood 34 mmol/L (21-32); Calcium, Blood 8.9 mg/dL (8.5-10.1); Chloride, Blood 100 mmol/L (98-108); Creatinine, Blood 3.13 mg/dL (0.40-1.00); Glomerular Filtration Rate 17 (60-); Glucose, Blood 88 mg/dL (70-99); Magnesium, Blood 2.1 mg/dL (1.6-2.4); Phosphorus, Blood 3.9 mg/dL (2.5-4.9); Potassium, Blood 3.6 mmol/L (3.5-5.5); Sodium, Blood 140 mmol/L (136-145)
--- NOTE | 2019-02-12 08:46 | NUR ---
MICROBIOLOGY CALLED TO GIVE RESULTS OF GRAM + COCCI IN [facility] IN [facility]. CALL PLACED TO PROVIDER. UNABLE TO LEAVE MESSAGE. WILL CALL AGAIN
--- NOTE | 2019-02-12 10:00 | NUR ---
SPOKE WITH PHYSICIAN ABOUT MICRO RESULTS, NO FURTHER ORDERS AT THIS TIME
[2019-02-12 13:26] LABS: Vancomycin, Random 12.6 ug/mL
--- NOTE | 2019-02-12 18:26 | NUR ---
SHIFT SUMMARY- PT A/O, PLESANT AND COOPERATIVE. PT DOWN TO DYALISIS THIS MORNING. PT FAMILY VISITED THIS AFTERNOON. CONTINUING ON IV ANTIBIOTICS. PT EATING AND DRINKING WELL.
--- NOTE | 2019-02-13 04:41 | NUR ---
SHIFT SUMMARY NO ISSUES NOTED. PT HAS BEEN IN HER ROOM MOST OF SHIFT. PT CURRENTLY SLEEPING AND HAS REFUSED MORNING VS. WILL CONTINUE TO MONITOR. CALL LIGHT IN REACH.
[2019-02-13 05:12] LABS: Hematocrit 31.2 % (33.0-51.0); Hemoglobin 9.6 g/dL (11.5-16.0)
[2019-02-13 05:33] LABS: Albumin, Blood 2.6 g/dL (3.4-5.0); Anion Gap 4 mmol/L (6-16); Blood Urea Nitrogen 21 mg/dL (8-24); Bun/Creatinine Ratio 6.7 (12.0-20.0); CO2, Blood 34 mmol/L (21-32); Calcium, Blood 8.7 mg/dL (8.5-10.1); Chloride, Blood 104 mmol/L (98-108); Creatinine, Blood 3.15 mg/dL (0.40-1.00); Glomerular Filtration Rate 17 (60-); Glucose, Blood 90 mg/dL (70-99); Phosphorus, Blood 4.2 mg/dL (2.5-4.9); Potassium, Blood 4.1 mmol/L (3.5-5.5); Sodium, Blood 142 mmol/L (136-145)
--- NOTE | 2019-02-13 15:39 | NUR ---
SHIFT SUMMARY- PT A/O, COOPERATIVE, AND PLESANT. PT HAD POSITIVE BLOOD CULTURE IN [facility] SITE. PROVIDER DECIDED TO KEEP THE PT OVERNIGHT ONE MORE NIGHT AND PLAN DISCHARGE IN THE MORNING.
[2019-02-14 05:27] LABS: Hematocrit 31.9 % (33.0-51.0); Hemoglobin 9.5 g/dL (11.5-16.0)
[2019-02-14 05:49] LABS: Magnesium, Blood 2.2 mg/dL (1.6-2.4)
[2019-02-14 05:51] LABS: Albumin, Blood 2.6 g/dL (3.4-5.0); Anion Gap 5 mmol/L (6-16); Blood Urea Nitrogen 27 mg/dL (8-24); Bun/Creatinine Ratio 9.1 (12.0-20.0); CO2, Blood 31 mmol/L (21-32); Calcium, Blood 8.8 mg/dL (8.5-10.1); Chloride, Blood 106 mmol/L (98-108); Creatinine, Blood 2.97 mg/dL (0.40-1.00); Glomerular Filtration Rate 18 (60-); Glucose, Blood 94 mg/dL (70-99); Phosphorus, Blood 4.2 mg/dL (2.5-4.9); Potassium, Blood 4.8 mmol/L (3.5-5.5); Sodium, Blood 142 mmol/L (136-145)
--- NOTE | 2019-02-14 06:35 | NUR ---
SHIFT SUMMARY PATIENT DID NOT GET MUCH SLEEP LAST NIGHT DUE TO BEING IN PAIN THAT SHE RATED BETWEEN 7&8. PRN PAIN MEDICATIONS GIVEN PER EMAR PARAMETERS BUT THEY WERE INEFFECTIVE IN CONTROLLING HER PAIN. IV IN RIGHT FOREARM FLUSHED BUT TENDER. BED IN LOWEST POSITION WITH WHEELS LOCKED. CALL LIGHT AND BELONGINGS WITHIN REACH. REPORT GIVEN TO ONCOMING RN.
--- NOTE | 2019-02-14 08:26 | NUR ---
DIALYSIS CLEANED AND REDRESSED CATH SITE PER PROTOCAL.
[2019-02-14] MEDS ORDERED: MYCAMINE100 MG IV ×2 (11:19→11:23)
[2019-02-14] MEDS ORDERED: MERREM1 GM IV (11:19)
--- NOTE | 2019-02-14 13:17 | NUR ---
PT. DISCHARGED HOME WITH INSTRUCTIONS TO RETURN TO THE [facility] TOMORROW AND EVERYDAY AT 0930 FOR 2 WEEKS. PT. VERBALIZED UNDERSTANDING HAS DONE THIS BEFORE. IV MEDS WILL BE GIVEN IN DIALYSIS CATH PER DR. VILLALBA. DIALYSIS WILL FACILITATE THIS IN [facility].
== END 2019-02-14 13:13 | disposition home or self-care (01) | DRG 314 ==
LOC: ER 17:46 → MEDS 19:01
PROVIDERS: Internal Medicine Nephrology; Pharmacist; Physician Assistant; ADMIT Family Medicine
PROC: 5A1D70Z Performance of Urinary Filtration, Intermittent, Less than 6 Hours Per Day (ICD-10-PCS; principal; 2019-02-11)
PROC: 30233N1 Transfusion of Nonautologous Red Blood Cells into Peripheral Vein, Percutaneous Approach (ICD-10-PCS; 2019-02-11)
DX: T82.7XXA Infection and inflammatory reaction due to other cardiac and vascular devices, implants and grafts, initial encounter (principal); R65.20 Severe sepsis without septic shock; N18.6 End stage renal disease; B37.7 Candidal sepsis; I12.0 Hypertensive chronic kidney disease with stage 5 chronic kidney disease or end stage renal disease; E87.1 Hypo-osmolality and hyponatremia; Z99.2 Dependence on renal dialysis; F17.210 Nicotine dependence, cigarettes, uncomplicated; G43.909 Migraine, unspecified, not intractable, without status migrainosus; B37.9 Candidiasis, unspecified; E21.3 Hyperparathyroidism, unspecified; D63.1 Anemia in chronic kidney disease; E86.9 Volume depletion, unspecified; Z86.718 Personal history of other venous thrombosis and embolism; E87.70 Fluid overload, unspecified
CPT/HCPCS: 36415; 36430; 36581; 71046; 80053; 80069; 80202; 81001; 83605; 83735; 84100; 84145; 85014; 85018; 85025; 85610; 85651; 85730; 86140; 86850; 86900; 86901; 86923; 87040; 87070; 87076; 87077; 87106; 87186; 93005; 93010; 93308; 96361; 96365; 99152; 99285-25; A9270; C1750; C1769; J0696; J0881; J1450; J1644; J2185; J2248; J2250; J2405; J3010; J3370; J7030; J7040; J7050; P9016

== ENCOUNTER → 2019-02-16 | Outpatient (CLI) | payer MEDICARE, OTHER ==
[~2019-02-16] MED LIST changes: +MERREM1 GM IV; +MYCAMINE100 MG IV
[2019-02-16 15:12] LABS: Anion Gap 6 mmol/L (6-16); Blood Urea Nitrogen 30 mg/dL (8-24); Bun/Creatinine Ratio 10.4 (12.0-20.0); CO2, Blood 29 mmol/L (21-32); Chloride, Blood 101 mmol/L (98-108); Creatinine, Blood 2.88 mg/dL (0.40-1.00); Glomerular Filtration Rate 19 (60-); Glucose, Blood 106 mg/dL (70-99); Phosphorus, Blood 4.9 mg/dL (2.5-4.9); Potassium, Blood 4.5 mmol/L (3.5-5.5); Sodium, Blood 136 mmol/L (136-145)
== END | disposition home or self-care (01) ==
LOC: LAB SHORT 13:20 → LAB 13:20
PROVIDERS: Internal Medicine Nephrology
DX: N18.4 Chronic kidney disease, stage 4 (severe) (principal); D63.1 Anemia in chronic kidney disease
CPT/HCPCS: 80069; 85018

== ENCOUNTER 2019-02-17 00:01 | Day surgery (SDC) | payer MEDICARE, OTHER | END 2019-02-17 23:01 | disposition home or self-care (01) | LOC: ATC 00:01 | DX: A41.9 Sepsis, unspecified organism (principal); I12.0 Hypertensive chronic kidney disease with stage 5 chronic kidney disease or end stage renal disease; N18.6 End stage renal disease; D59.3 Hemolytic-uremic syndrome; K21.9 Gastro-esophageal reflux disease without esophagitis; G43.909 Migraine, unspecified, not intractable, without status migrainosus; Z87.442 Personal history of urinary calculi; Z99.2 Dependence on renal dialysis; Z87.891 Personal history of nicotine dependence; Z88.5 Allergy status to narcotic agent; Z88.6 Allergy status to analgesic agent; Z88.8 Allergy status to other drugs, medicaments and biological substances; Z79.899 Other long term (current) drug therapy | CPT/HCPCS: 96365; 96366; 96367; J2185; J2248 ==

== ENCOUNTER 2019-02-18 00:02 | Day surgery (SDC) | payer MEDICARE, OTHER ==
[2019-02-18 17:40] LABS: Albumin, Blood 2.8 g/dL (3.4-5.0); Anion Gap 4 mmol/L (6-16); Blood Urea Nitrogen 33 mg/dL (8-24); Bun/Creatinine Ratio 12.3 (12.0-20.0); CO2, Blood 32 mmol/L (21-32); Calcium, Blood 9.4 mg/dL (8.5-10.1); Chloride, Blood 102 mmol/L (98-108); Creatinine, Blood 2.68 mg/dL (0.40-1.00); Glomerular Filtration Rate 21 (60-); Glucose, Blood 105 mg/dL (70-99); Phosphorus, Blood 5.3 mg/dL (2.5-4.9); Potassium, Blood 4.1 mmol/L (3.5-5.5); Sodium, Blood 138 mmol/L (136-145)
== END 2019-02-18 18:01 | disposition home or self-care (01) ==
LOC: ATC 00:02
PROVIDERS: Internal Medicine Nephrology
DX: D59.3 Hemolytic-uremic syndrome (principal); I12.0 Hypertensive chronic kidney disease with stage 5 chronic kidney disease or end stage renal disease; N18.6 End stage renal disease; K21.9 Gastro-esophageal reflux disease without esophagitis; G43.909 Migraine, unspecified, not intractable, without status migrainosus; Z87.442 Personal history of urinary calculi; Z99.2 Dependence on renal dialysis; Z87.891 Personal history of nicotine dependence; Z88.5 Allergy status to narcotic agent; Z88.6 Allergy status to analgesic agent; Z88.8 Allergy status to other drugs, medicaments and biological substances; Z79.899 Other long term (current) drug therapy
CPT/HCPCS: 80069; 96365; 96367; J2185; J2248

== ENCOUNTER 2019-02-19 00:31 | Day surgery (SDC) | payer MEDICARE, OTHER | END 2019-02-19 23:07 | disposition home or self-care (01) | LOC: ATC 00:31 | DX: I12.0 Hypertensive chronic kidney disease with stage 5 chronic kidney disease or end stage renal disease (principal); N18.6 End stage renal disease; D59.3 Hemolytic-uremic syndrome; K21.9 Gastro-esophageal reflux disease without esophagitis; G43.909 Migraine, unspecified, not intractable, without status migrainosus; Z79.2 Long term (current) use of antibiotics; Z79.899 Other long term (current) drug therapy; Z87.891 Personal history of nicotine dependence; Z88.5 Allergy status to narcotic agent; Z88.8 Allergy status to other drugs, medicaments and biological substances; Z88.6 Allergy status to analgesic agent; Z87.442 Personal history of urinary calculi; Z99.2 Dependence on renal dialysis; Z51.5 Encounter for palliative care | CPT/HCPCS: 96365; 96367; J2185; J2248 ==

== ENCOUNTER 2019-02-20 02:08 | Day surgery (SDC) | payer MEDICARE, OTHER | END 2019-02-20 16:50 | disposition home or self-care (01) | LOC: ATC 02:08 | DX: B99.9 Unspecified infectious disease (principal); D59.3 Hemolytic-uremic syndrome; I12.0 Hypertensive chronic kidney disease with stage 5 chronic kidney disease or end stage renal disease; N18.6 End stage renal disease; K21.9 Gastro-esophageal reflux disease without esophagitis; G43.909 Migraine, unspecified, not intractable, without status migrainosus; Z87.891 Personal history of nicotine dependence; Z87.11 Personal history of peptic ulcer disease; Z90.49 Acquired absence of other specified parts of digestive tract; Z99.2 Dependence on renal dialysis; Z88.5 Allergy status to narcotic agent; Z88.6 Allergy status to analgesic agent; Z88.8 Allergy status to other drugs, medicaments and biological substances; Z91.048 Other nonmedicinal substance allergy status; Z79.899 Other long term (current) drug therapy | CPT/HCPCS: 96365; 96367; J2185; J2248 ==

== ENCOUNTER 2019-02-21 13:25 | Day surgery (SDC) | payer MEDICARE, OTHER ==
--- NOTE | 2019-02-21 14:33 | NUR ---
PT REFUSED A PERIPHERAL IV START. FERNANDO SIM INSTRUCTED THIS RN AT 0730 HOW TO ACCESS PTS DIALYSIS CATH.
== END 2019-02-21 15:02 | disposition home or self-care (01) ==
LOC: ATC 13:25
DX: A41.9 Sepsis, unspecified organism (principal); D59.3 Hemolytic-uremic syndrome; I12.0 Hypertensive chronic kidney disease with stage 5 chronic kidney disease or end stage renal disease; N18.6 End stage renal disease; G43.909 Migraine, unspecified, not intractable, without status migrainosus; K21.9 Gastro-esophageal reflux disease without esophagitis; Z87.891 Personal history of nicotine dependence; Z87.11 Personal history of peptic ulcer disease; Z90.49 Acquired absence of other specified parts of digestive tract; Z99.2 Dependence on renal dialysis; Z88.5 Allergy status to narcotic agent; Z88.6 Allergy status to analgesic agent; Z88.8 Allergy status to other drugs, medicaments and biological substances; Z79.899 Other long term (current) drug therapy; Z91.048 Other nonmedicinal substance allergy status
CPT/HCPCS: 96365; 96367; J2185; J2248

== ENCOUNTER 2019-02-22 14:52 | Day surgery (SDC) | payer MEDICARE, OTHER | END 2019-02-22 16:39 | disposition home or self-care (01) | LOC: ATC 14:52 | DX: A41.9 Sepsis, unspecified organism (principal); I12.0 Hypertensive chronic kidney disease with stage 5 chronic kidney disease or end stage renal disease; N18.6 End stage renal disease; D59.3 Hemolytic-uremic syndrome; K21.9 Gastro-esophageal reflux disease without esophagitis; G43.909 Migraine, unspecified, not intractable, without status migrainosus; Z79.2 Long term (current) use of antibiotics; Z79.899 Other long term (current) drug therapy; Z87.891 Personal history of nicotine dependence; Z88.5 Allergy status to narcotic agent; Z88.6 Allergy status to analgesic agent; Z88.8 Allergy status to other drugs, medicaments and biological substances; Z87.442 Personal history of urinary calculi; Z99.2 Dependence on renal dialysis; Z51.5 Encounter for palliative care | CPT/HCPCS: 96365; 96367; J2185; J2248 ==

== ENCOUNTER 2019-02-23 07:14 | Day surgery (SDC) | payer MEDICARE, OTHER ==
[2019-02-23 15:13] LABS: BASOPHILS ABSOLUTE AUTO 0.08 K/mm3 (0.00-0.23); BASOPHILS PERCENT AUTO 1 % (0-2); EOSINOPHILS ABSOLUTE AUTO 2.45 K/mm3 (0.00-0.68); EOSINOPHILS PERCENT AUTO 24 % (0-6); Hematocrit 34.8 % (33.0-51.0); Hemoglobin 10.8 g/dL (11.5-16.0); IMMATURE GRAN ABSOLUTE AUTO 0.06 K/mm3 (0.00-0.10); IMMATURE GRAN PERCENT AUTO 1 % (0-1); LYMPHOCYTES ABSOLUTE AUTO 2.45 K/mm3 (0.84-5.20); LYMPHOCYTES PERCENT AUTO 24 % (21-46); MONOCYTES ABSOLUTE AUTO 0.67 K/mm3 (0.16-1.47); MONOCYTES PERCENT AUTO 6 % (4-13); Mean Corpuscular HGB 25.7 pg (26.0-34.0); Mean Corpuscular Volume 83 fL (80-100); Mean Platelet Volume 10.1 fL (9.1-12.4); NEUTROPHILS ABSOLUTE AUTO 4.73 K/mm3 (1.96-9.15); NEUTROPHILS PERCENT AUTO 45 % (41-73); Platelet Count 277 K/mm3 (150-400); RDW Coefficient Variation 15.8 % (11.7-14.2); RDW Standard Deviation 47.4 fL (35.1-46.3); White Blood Cell Count 10.44 K/mm3 (4.00-11.30)
[2019-02-23 15:33] LABS: Anion Gap 5 mmol/L (6-16); Blood Urea Nitrogen 36 mg/dL (8-24); Bun/Creatinine Ratio 12.1 (12.0-20.0); CO2, Blood 27 mmol/L (21-32); Calcium, Blood 9.1 mg/dL (8.5-10.1); Chloride, Blood 105 mmol/L (98-108); Creatinine, Blood 2.98 mg/dL (0.40-1.00); Glomerular Filtration Rate 18 (60-); Glucose, Blood 113 mg/dL (70-99); Phosphorus, Blood 4.1 mg/dL (2.5-4.9); Potassium, Blood 4.3 mmol/L (3.5-5.5); Sodium, Blood 137 mmol/L (136-145)
== END 2019-02-23 22:40 | disposition home or self-care (01) ==
LOC: ATC 07:14
PROVIDERS: Internal Medicine Nephrology
DX: R78.81 Bacteremia (principal); I12.0 Hypertensive chronic kidney disease with stage 5 chronic kidney disease or end stage renal disease; N18.6 End stage renal disease; D59.3 Hemolytic-uremic syndrome; K21.9 Gastro-esophageal reflux disease without esophagitis; G43.909 Migraine, unspecified, not intractable, without status migrainosus; Z79.2 Long term (current) use of antibiotics; Z79.899 Other long term (current) drug therapy; Z87.891 Personal history of nicotine dependence; Z88.5 Allergy status to narcotic agent; Z88.6 Allergy status to analgesic agent; Z88.8 Allergy status to other drugs, medicaments and biological substances; Z87.442 Personal history of urinary calculi; Z99.2 Dependence on renal dialysis; Z51.5 Encounter for palliative care; Z87.11 Personal history of peptic ulcer disease
CPT/HCPCS: 80069; 83036; 85025; 96365; 96367; J2185; J2248

== ENCOUNTER 2019-02-24 00:14 | Day surgery (SDC) | payer MEDICARE, OTHER | END 2019-02-24 23:03 | disposition home or self-care (01) | LOC: ATC 00:14 | DX: T82.7XXD Infection and inflammatory reaction due to other cardiac and vascular devices, implants and grafts, subsequent encounter (principal); I12.0 Hypertensive chronic kidney disease with stage 5 chronic kidney disease or end stage renal disease; N18.6 End stage renal disease; K21.9 Gastro-esophageal reflux disease without esophagitis; Z87.891 Personal history of nicotine dependence; Z99.2 Dependence on renal dialysis; Z79.899 Other long term (current) drug therapy | CPT/HCPCS: 96365; 96367; J2185; J2248 ==

== ENCOUNTER 2019-02-25 14:45 | Day surgery (SDC) | payer MEDICARE, OTHER | END 2019-02-25 16:43 | disposition home or self-care (01) | LOC: ATC 14:45 | DX: I12.0 Hypertensive chronic kidney disease with stage 5 chronic kidney disease or end stage renal disease (principal); N18.6 End stage renal disease; D59.3 Hemolytic-uremic syndrome; K21.9 Gastro-esophageal reflux disease without esophagitis; G43.909 Migraine, unspecified, not intractable, without status migrainosus; Z79.2 Long term (current) use of antibiotics; Z79.899 Other long term (current) drug therapy; Z87.891 Personal history of nicotine dependence; Z87.11 Personal history of peptic ulcer disease; Z87.442 Personal history of urinary calculi; Z99.2 Dependence on renal dialysis; Z88.5 Allergy status to narcotic agent; Z88.6 Allergy status to analgesic agent; Z88.8 Allergy status to other drugs, medicaments and biological substances; Z91.048 Other nonmedicinal substance allergy status; Z51.5 Encounter for palliative care | CPT/HCPCS: 96365; 96367; J2185; J2248 ==

== ENCOUNTER 2019-02-26 00:27 | Day surgery (SDC) | payer MEDICARE, OTHER | END 2019-02-26 18:20 | disposition home or self-care (01) | LOC: ATC 00:27 | DX: I12.0 Hypertensive chronic kidney disease with stage 5 chronic kidney disease or end stage renal disease (principal); N18.6 End stage renal disease; D59.3 Hemolytic-uremic syndrome; K21.9 Gastro-esophageal reflux disease without esophagitis; Z79.2 Long term (current) use of antibiotics; Z87.891 Personal history of nicotine dependence; Z99.2 Dependence on renal dialysis; Z79.899 Other long term (current) drug therapy; Z88.5 Allergy status to narcotic agent; Z88.6 Allergy status to analgesic agent; Z88.8 Allergy status to other drugs, medicaments and biological substances; Z91.048 Other nonmedicinal substance allergy status; N18.4 Chronic kidney disease, stage 4 (severe); D63.1 Anemia in chronic kidney disease | CPT/HCPCS: 80069; 86162; 96365; 96367; J2185; J2248 ==

== ENCOUNTER 2019-02-27 00:41 | Day surgery (SDC) | payer MEDICARE, OTHER | END 2019-02-27 17:17 | disposition home or self-care (01) | LOC: ATC 00:41 | DX: R78.81 Bacteremia (principal); I12.0 Hypertensive chronic kidney disease with stage 5 chronic kidney disease or end stage renal disease; N18.6 End stage renal disease; D59.3 Hemolytic-uremic syndrome; K21.9 Gastro-esophageal reflux disease without esophagitis; G43.909 Migraine, unspecified, not intractable, without status migrainosus; Z79.82 Long term (current) use of aspirin; Z79.899 Other long term (current) drug therapy; Z99.2 Dependence on renal dialysis; Z87.891 Personal history of nicotine dependence; Z87.11 Personal history of peptic ulcer disease; Z87.442 Personal history of urinary calculi; Z90.49 Acquired absence of other specified parts of digestive tract; Z88.6 Allergy status to analgesic agent; Z88.5 Allergy status to narcotic agent; Z88.8 Allergy status to other drugs, medicaments and biological substances; Z91.048 Other nonmedicinal substance allergy status | CPT/HCPCS: 96365; 96367; J2185; J2248 ==

== ENCOUNTER 2019-02-28 00:52 | Day surgery (SDC) | payer MEDICARE, OTHER | END 2019-02-28 16:23 | disposition home or self-care (01) | LOC: ATC 00:52 | DX: I12.0 Hypertensive chronic kidney disease with stage 5 chronic kidney disease or end stage renal disease (principal); N18.6 End stage renal disease; D59.3 Hemolytic-uremic syndrome; K21.9 Gastro-esophageal reflux disease without esophagitis; Z79.2 Long term (current) use of antibiotics; Z79.899 Other long term (current) drug therapy; Z87.891 Personal history of nicotine dependence; Z90.49 Acquired absence of other specified parts of digestive tract; Z88.5 Allergy status to narcotic agent; Z88.6 Allergy status to analgesic agent; Z88.8 Allergy status to other drugs, medicaments and biological substances; Z91.048 Other nonmedicinal substance allergy status | CPT/HCPCS: 96365; 96367; J2185; J2248 ==

== ENCOUNTER 2019-03-01 00:12 | Day surgery (SDC) | payer MEDICARE, OTHER | END 2019-03-01 16:10 | disposition home or self-care (01) | LOC: ATC 00:12 | DX: I12.0 Hypertensive chronic kidney disease with stage 5 chronic kidney disease or end stage renal disease (principal); N18.6 End stage renal disease; D59.3 Hemolytic-uremic syndrome; K21.9 Gastro-esophageal reflux disease without esophagitis; G43.909 Migraine, unspecified, not intractable, without status migrainosus; Z79.2 Long term (current) use of antibiotics; Z79.82 Long term (current) use of aspirin; Z79.899 Other long term (current) drug therapy; Z99.2 Dependence on renal dialysis; Z87.891 Personal history of nicotine dependence; Z87.11 Personal history of peptic ulcer disease; Z87.442 Personal history of urinary calculi; Z90.49 Acquired absence of other specified parts of digestive tract; Z88.6 Allergy status to analgesic agent; Z88.5 Allergy status to narcotic agent; Z88.8 Allergy status to other drugs, medicaments and biological substances; Z91.048 Other nonmedicinal substance allergy status | CPT/HCPCS: 96365; 96367; J2185; J2248 ==

== ENCOUNTER 2019-03-03 00:33 | Day surgery (SDC) | payer MEDICARE, OTHER | END 2019-03-03 23:33 | disposition home or self-care (01) | LOC: ATC 00:33 | DX: I12.0 Hypertensive chronic kidney disease with stage 5 chronic kidney disease or end stage renal disease (principal); N18.6 End stage renal disease; D59.3 Hemolytic-uremic syndrome; K21.9 Gastro-esophageal reflux disease without esophagitis; G43.909 Migraine, unspecified, not intractable, without status migrainosus; Z79.2 Long term (current) use of antibiotics; Z79.899 Other long term (current) drug therapy; Z87.11 Personal history of peptic ulcer disease; Z87.442 Personal history of urinary calculi; Z87.891 Personal history of nicotine dependence; Z88.5 Allergy status to narcotic agent; Z88.6 Allergy status to analgesic agent; Z88.8 Allergy status to other drugs, medicaments and biological substances; Z91.048 Other nonmedicinal substance allergy status; Z51.5 Encounter for palliative care ==